=== PATIENT | male | born 1935 | race Caucasian/White ===

== ENCOUNTER → 2016-11-05 | Outpatient (CLI) | payer OTHER ==
[~2016-11-05] MED LIST: ASPI-435 PO; ATOR-22 PO; B-COTAB18 PO; BIMA0.01 OPL; CARB1TAB29 PO; CLOP1TAB15 PO; DOXY-300 PO; EPP3/2 IM; LISI-461 PO; MCTP EXT; METF-383 PO; MISC-573; MULTTAB58 PO; NTRGSL/4 UT; WOUN1PAD EXT
[2016-11-05 17:51] LABS: URINE APPEARANCE CLEAR (CLEAR); URINE BILIRUBIN NEG (NEG); URINE COLOR YELLOW; URINE NITRITE NEG (NEG); URINE SPECIFIC GRAVITY 1.015 (1.000-1.030); UROBILINOGEN NEG (NEG); ZZUR CULT IF INDIC CLEAN CATCH NO
[2016-11-05 17:58] LABS: MANUAL MICROSCOPIC REQUIRED? NO; REVIEW REQ? NO
== END | disposition home or self-care (01) ==
LOC: C.LABPBG 11:49
PROVIDERS: ATTEND Internal Medicine Geriatric Medicine
DX: R39.15 Urgency of urination (principal)

== ENCOUNTER → 2017-07-14 | Outpatient (CLI) | payer OTHER ==
[~2017-07-14] MED LIST changes: +CIPR-255 PO; +OXYC-57 PO; +PHEN-775 PO; +SACC250C11 PO
== END | disposition home or self-care (01) ==
LOC: C.PATHSPEC 10:17
PROVIDERS: ATTEND Urology
DX: R31.0 Gross hematuria (principal)

== ENCOUNTER → 2017-07-21 | Day surgery (SDC) | payer OTHER ==
[2017-07-19 09:37] VITALS: BMI 24.0
--- NOTE | 2017-07-19 10:21 | PAT Medication Instructions ---
Service Date Jul 19, 2017. Current Home Medication List Aspirin (Aspirin 81), 81 MG PO Q2D Atorvastatin (Lipitor), 20 MG PO HS B-Complex Vitamins (Vitamin B Complex), 1 TAB PO QAM Bimatoprost (Lumigan), 1 DROPS OPL HS Carbonyl Iron (Feosol), 1 TAB PO QAM Clopidogrel (Plavix), 75 MG PO QAM Epinephrine (Epipen), 0.3 MG IM UD PRN for BEE STING Lisinopril (Zestril), 10 MG PO QAM Metformin Hcl (Glucophage), 850 MG PO BID Multiple Vitamin (Multivitamin), 1 TAB PO QAM Nitroglycerin (Nitrostat), 0.4 MG UT PRN PRN for CHEST PAIN Saccharomyces Boulardii (Probiotic), 1 CAP PO QAM Medication Instructions For Your Scheduled Surgery - Check with surgeon and felling machine operator for instructions: Clopidogrel (Plavix), 75 MG PO QAM Aspirin (Aspirin 81), 81 MG PO Q2D - Hold the following medications 48 hours prior to surgery: Metformin Hcl (Glucophage), 850 MG PO BID - Hold the following medications the morning of surgery: B-Complex Vitamins (Vitamin B Complex), 1 TAB PO QAM Carbonyl Iron (Feosol), 1 TAB PO QAM Lisinopril (Zestril), 10 MG PO QAM Multiple Vitamin (Multivitamin), 1 TAB PO QAM Saccharomyces Boulardii (Probiotic), 1 CAP PO QAM - Take the following medications the morning of surgery with a sip of water: Nitroglycerin (Nitrostat), 0.4 MG UT PRN PRN for CHEST PAIN (if needed) Epinephrine (Epipen), 0.3 MG IM UD PRN for BEE STING (if needed) - Take the following medications as scheduled the night before surgery: Epinephrine (Epipen), 0.3 MG IM UD PRN for BEE STING (if needed) Nitroglycerin (Nitrostat), 0.4 MG UT PRN PRN for CHEST PAIN (if needed) Bimatoprost (Lumigan), 1 DROPS OPL HS Atorvastatin (Lipitor), 20 MG PO HS If you have any questions please call us at [phone] or [phone] or [phone]
[2017-07-19 11:01] LABS: BASO % 0.9 %; BASO ABS # 0.06 K/uL (0-0.2); COMPLETE YES; EOS % 4.3 %; HEMATOCRIT 34.2 % (42-52); IG% 0.3 %; LYMPH % 18.5 %; LYMPH ABS # 1.29 K/uL (1.2-3.4); MEAN CELL VOLUME 96.6 fL (80-100); MEAN CORPUSCULAR HEMOGLOBIN 32.8 pg (25-34); MEAN CORPUSCULAR HGB CONC 33.9 g/dl (32-36); MEAN PLATELET VOLUME 9.6 fL (7.4-10.4); MONO % 9.2 %; NEUT % 66.8 %; PLATELET COUNT 216 K/uL (130-400); RED BLOOD COUNT 3.54 M/uL (4.7-6.1); WHITE BLOOD COUNT 6.97 K/uL (4.8-10.8)
[2017-07-19 11:05] LABS: URINE APPEARANCE CLEAR (CLEAR); URINE BILIRUBIN NEG (NEG); URINE COLOR DK YELLOW; URINE NITRITE NEG (NEG); URINE PH 5.5 (4.5-7.5); URINE SPECIFIC GRAVITY 1.022 (1.000-1.030); UROBILINOGEN NEG (NEG)
[2017-07-19 11:07] LABS: MANUAL MICROSCOPIC REQUIRED? NO; REVIEW REQ? NO
[2017-07-19 11:12] LABS: BUN/CREATININE RATIO 20.5 (10-20); CALCIUM 8.8 mg/dl (8.5-10.1); CREATININE 0.87 mg/dl (0.60-1.40); POTASSIUM 4.8 mmol/L (3.5-5.1)
[~2017-07-21] VITALS: Ht 182.9 cm; Wt 80.5 kg
[~2017-07-21] MED LIST changes: +ATROPINE SULFATE 0.1 MG/ML 5ML SYR IV PRN; +CIPROFLOXACIN / D5W 400 MG IV SCH; +DEXAMETHASONE SOD INJ 4 MG/ML VIAL ONE; -DOXY-300 PO; +EpHEDrine SULFATE INJ 50 MG/ML AMP IV PRN; +FENTANYL CITRATE INJ 50 MCG/1 ML 2 ML VIAL IV PRN; +FENTANYL CITRATE INJ 50 MCG/1 ML 2 ML VIAL ONE; +LACTATED RINGER'S 1000ML 1,000 ML IV SCH; +LIDOCAINE HCL 2% 2 ML VIAL (20MG/ML) ONE; -MCTP EXT; -MISC-573; +ONDANSETRON INJ 2 MG/ML 2 ML VIAL IV PRN; +ONDANSETRON INJ 2 MG/ML 2 ML VIAL ONE; +OXYCODONE/ACETAMINOPHEN 5-325 TAB PO PRN; +PHENAZOPYRIDINE HCL 100 MG TAB PO PRN; +PROPOFOL IV EMULSION 10 MG/ML 20 ML VIAL IV ONE; -WOUN1PAD EXT
[2017-07-21 07:01] VITALS: BP 142/78; PULSE 58; TEMP 36.7; O2SAT 98; BMI 24.0
[2017-07-21 07:10] VITALS: BP 142/78; TEMP 36.7; O2SAT 98; Ht 182.9 cm; Wt 80.5 kg
--- NOTE | 2017-07-21 07:10 | History & Physical Bridge Note ---
H&P Re-Evaluation Bridge Note: I have examined the patient, reviewed the History & Physical and in the interval since the performance of the History & Physical I have noted the following changes of clinical significance: No changes noted
--- NOTE | 2017-07-21 08:19 | Discharge Instructions ---
Discharge Instructions Date of Service Jul 21, 2017. 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 Instructions / Follow-Up Instructions / Follow-Up In office as scheduled for discussion of pathology results Discharge Diet Recommended Diet: Regular Diet (good fluid intake) Procedures Procedures Performed: Cystoscopy, cold cup bladder biopsy, rollerball fulguration, clot evacuation Pending Studies Studies pending at discharge: yes List of pending studies: Pathology discussion Medical Emergencies . Who to Call and When: Medical Emergencies: If at any time you feel your situation is an emergency, please call 911 immediately. . Non-Emergent Contact Non-Emergency issues call your: Urologist Call Non-Emergent contact if: you have a fever, temperature is above 101, your pain is not controlled, your pain is worsening, your pain is unusual for you, your pain is concerning you . . "Provider Documentation" section prepared by [facility]. . VTE Core Measure Inpt VTE Proph given/why not?: SCD's [place] Drug Monitoring Program Search Results: patient reviewed within database, no issues identified
--- NOTE | 2017-07-21 09:10 | [facility] Post Operative Brief Note ---
Immediate Operative Summary Operative Date Jul 21, 2017. Pre-Operative Diagnosis Gross Hematuria, abnormal cystoscopy Post-Operative Diagnosis Same Procedure(s) Performed Cystoscopy, cold cup bladder biopsy, rollerball fulguration, clot evacuation Surgeon Dr. 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 Posterior Bladder Biopsy B. Left Bladder Biopsy C. Right Bladder Biopsy D. Right Bladder Diverticulum Drains 18 fr eagle 10 cc H2O Anesthesia GALMA Complication(s) None Disposition Recovery Room / PACU
--- NOTE | 2017-07-21 09:16 | [facility] Operative Report ---
Operative Report Operative Date Jul 21, 2017. Pre-Operative Diagnosis Gross Hematuria, abnormal cystoscopy Post-Operative Diagnosis Same Procedure(s) Performed Cystoscopy, cold cup bladder biopsy, rollerball fulguration, clot evacuation Surgeon Dr. 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 Posterior Bladder Biopsy B. Left Bladder Biopsy C. Right Bladder Biopsy D. Right Bladder Diverticulum Drains 18 fr eagle 10 cc H2O Anesthesia GALMA Complication(s) None Disposition Recovery Room / PACU Indications 82-year-old male with a history of persistent gross hematuria was found to have borderline areas of bladder mucosa on office cystoscopy by Dr. Piedra. In addition he is noted to have a right-sided bladder diverticulum in a position lateral to the ureteral orifice with retained clot. Patient is here today for biopsy, fulguration and clot evacuation. Please see office H&P for further details. Intravenous antibiotics provided for coverage and SCDs used for DVT prophylaxis. Description of Procedure Patient was properly identified and brought into the operative suite after identification for appropriate consent of the chart. General anesthesia with laryngeal mask was initiated and patient was prepped and draped in the standard fashion for this procedure. Full timeout procedure was followed. 22 Slovak rigid cystoscope was passed into the bladder, bladder was surveyed in its entirety including 30 and 70 lenses. This redemonstrated the patient's previous office findings of borderline, beefy mucosa on the posterior bladder wall and a larger right-sided diverticulum with retained clot. Some small amount of clot within the bladder was irrigated free. Other, smaller bladder diverticula were noted without significant abnormalities. A moderately obstructive prostate gland was appreciated with no strictures or clear papillary masses. Narrowband imaging was used to assist with identification of borderline areas of mucosa. Cold cup biopsies were taken and sent separately from different areas including the posterior bladder wall, left and right lateral wall in random locations and the bladder diverticulum. Cystoscope was then removed and a 27 Slovak resectoscope was introduced using a visual obturator. Rollerball cautery was used to ablate areas of abnormal appearing mucosa and to obtain excellent hemostasis. All clots present within the bladder and diverticulum were irrigated free through the resectoscope sheath. After this was complete the patient's bladder was noted to be free of retained clot with no significant abnormal mucosa present and excellent hemostasis. Bladder was drained and resectoscope was removed. 18 Slovak Eagle catheter was placed with 10 mL of sterile water in the balloon to gravity drainage. Follow-up care: Patient will be discharged home after a trial of void today. Prescription for antibiotic coverage, pain medication and Pyridium was provided. Outpatient follow-up appointment is confirmed. Patient was instructed to call our service should he note any fevers, chills, nausea, vomiting or other difficulties in the postoperative period. I attest to the content of the Intraoperative Record and any orders documented therein. Any exceptions are noted below.
--- NOTE | 2017-07-21 09:44 | Anesthesiology Progress Note ---
Anesthesia Post Op Note Date & Time Jul 21, 2017 at 09:43 Vital Signs Pain Intensity: 0 Vital Signs Past 12 Hours Date Time Temp Pulse Resp B/P (MAP) Pulse Ox O2 Delivery O2 Flow Rate FiO2 07/21/17 09:40 36.3 56 12 124/69 97 Room Air 07/21/17 09:30 58 17 128/74 97 Room Air 07/21/17 09:20 57 15 126/69 100 Mask 10 07/21/17 09:10 58 19 129/72 100 Mask 10 07/21/17 09:04 36.5 60 16 125/69 100 Mask 10 07/21/17 07:10 36.7 16 142/78 (99) 98 Room Air 07/21/17 07:01 36.7 58 16 142/78 (99) 98 Room Air Notes Mental Status: alert / awake / arousable, participated in evaluation Pt Amnestic to Procedure: Yes Nausea / Vomiting: adequately controlled Pain: adequately controlled Airway Patency, RR, SpO2: stable & adequate BP & HR: stable & adequate Hydration State: stable & adequate Anesthetic Complications: no major complications apparent
[2017-07-21 10:00] VITALS: BP 138/74; PULSE 61; TEMP 36.5; O2SAT 98
[2017-07-21 10:31] VITALS: BP 137/78; PULSE 60; O2SAT 99
[2017-07-21 11:00] VITALS: BP 151/76; PULSE 57; TEMP 36.5; O2SAT 99
== END | disposition home or self-care (01) ==
LOC: C.ACU 06:21
PROVIDERS: ATTEND Urology
DX: N30.21 Other chronic cystitis with hematuria (principal); I25.10 Atherosclerotic heart disease of native coronary artery without angina pectoris; N40.0 Benign prostatic hyperplasia without lower urinary tract symptoms; G47.31 Primary central sleep apnea; E78.5 Hyperlipidemia, unspecified; I10 Essential (primary) hypertension; M19.90 Unspecified osteoarthritis, unspecified site; E11.9 Type 2 diabetes mellitus without complications

== ENCOUNTER → 2017-08-01 | Outpatient (CLI) | payer OTHER ==
[~2017-08-01] MED LIST changes: -ATROPINE SULFATE 0.1 MG/ML 5ML SYR IV PRN; -CIPROFLOXACIN / D5W 400 MG IV SCH; -DEXAMETHASONE SOD INJ 4 MG/ML VIAL ONE; -EpHEDrine SULFATE INJ 50 MG/ML AMP IV PRN; -FENTANYL CITRATE INJ 50 MCG/1 ML 2 ML VIAL IV PRN; -FENTANYL CITRATE INJ 50 MCG/1 ML 2 ML VIAL ONE; -LACTATED RINGER'S 1000ML 1,000 ML IV SCH; -LIDOCAINE HCL 2% 2 ML VIAL (20MG/ML) ONE; -ONDANSETRON INJ 2 MG/ML 2 ML VIAL IV PRN; -ONDANSETRON INJ 2 MG/ML 2 ML VIAL ONE; -OXYCODONE/ACETAMINOPHEN 5-325 TAB PO PRN; -PHENAZOPYRIDINE HCL 100 MG TAB PO PRN; -PROPOFOL IV EMULSION 10 MG/ML 20 ML VIAL IV ONE
== END | disposition home or self-care (01) ==
LOC: C.LABSPEC 18:01
PROVIDERS: ATTEND Urology
DX: R39.15 Urgency of urination (principal); N39.0 Urinary tract infection, site not specified

== ENCOUNTER → 2017-10-26 | Outpatient (CLI) | payer OTHER ==
[~2017-10-26] MED LIST changes: -PHEN-775 PO
--- NOTE | 2017-10-27 06:20 | PAP/PSG TECHNICIAN REPORT ---
[facility] Grapple Operator Polysomnogram Report Study name: None Report date: 10/27/2017 Study date: 10/26/2017 Referring Physician: BRYN GALLAGHER M.D. Name: JESSE CREWS Interpreting Physician: Martinez Escobar M.D. Date of : 1935 Grapple Operator: Dov Mcgill RPSGT. Sex: Male Age: 82 StudyType: PSG PAP Weight: 182 lbs Height: 82 years, Height 5' 11" BMI: 25.38 Medications: ASPIRIN 81 MG, EPIPEN, CLOPIDOGREL BISULFATE 75 MG, ATORVASTATIN CALCIUM 20 MG, LISINOPRIL 10 MG, METFORMIN HCL 850 MG, IRON, ONETOUCH ULTRA, MYRBETRIQ 50 MG, NITROSTAT 0.4 MG, VIT B Patient History PATIENT HAS HISTORY OF HYPERTENSION, DIABETES, CORONARY ARTERY DISEASE AND COMPLEX SLEEP APNEA. PATIENT HAD A SLEEP STUDY DONE IN 2011 THAT SHOWED HE NEEDED BIPAP AT 13/6. HIS LAST SLEEP STUDY WAS DONE IN APRIL OF 2015 AND HE WAS SENT INTO THE LAB FOR A CPAP TITRATION AND WAS RECOMMENDED BIPAP OF 16/12 WITH A RATE OF 12. HE CURRENTLY WEARS BIPAP BUT HAS BEEN FEELING TIRED THE PAST 6 MONTHS. HE IS HERE TODAY FOR A CPAP TITRATION PER DOCTORS ORDER. RM 8 Parameters Monitored NPSG: E1-M2, E2-M1, Fp1-M2, Fp2-M1, F3-M2, F4-M2, F4-M1, C3-M2, C4-M2, C4-M1, O1-M2, O2-M2, O2-M1, T3-M2, T4-M1, P3-M2, P4-M1, CHIN1, CHIN2, HR, EKG, Legs, PFLOW, SNOR, FLOW, CFLOW, Tidal Volume, THOR, ABDO, SpO2, PLTH, CPRESS, ETCO2 Wave, ETCO2, pH Sleep Architecture Sleep Stages Time at Lights Off 11:17:49 PM STAGES Time (min.) TST (%) Time at Lights On 5:39:19 AM Wake 111.0 -- Total Recording Time (TRT) 382.00 min. N1 34.5 13 Total Sleep Period (TSP) 376.5 min. N2 210.0 78 Total Sleep Time (TST) 270.5min. N3 4.5 2 Awake Time 111.0 min. REM 21.5 8 Wake after Sleep Onset 106.0 min. Sleep Efficiency (SE) 71 % Sleep Onset Latency (SHARON) 5.0 min. Number of Stage 1 Shifts None Awakenings 55 Stage Changes 168 Number of REM periods 1 REM 21.5 8 REM Latency 323.0 min. NREM 249.0 92 Body Position Analysis Supine Right Left Side Prone Vertical Total Sleep Time (min.) 287.4 92.0 0.0 92.00 0.0 0.0 Total Sleep Time (%) 66% 34% 0% 34 0% N/A% Total Sleep Time REM (min.) 0.0 21.5 0.0 None 0.0 0.0 Total Sleep Time NREM (min.) 178.5 70.5 0.0 None 0.0 0.0 Intermittent Wake (min.) 108.9 2.1 0.0 None 0.0 0.0 Total Sleep Period (%) 75% None None None None None Arousals Myoclonus (PLM) * Events Count Index Events Count Index Spontaneous 37 8 Events Awake (PLMW) 161 87.0 Respiratory 30 8.7 Events Asleep w/ Arousal (PLMA) 19 4.2 PLM 18 4 Events Asleep w/o Arousal (PLMS) 573 127.1 Snoring 4 1 Total Asleep 592 131.3 Total 88 20 Total 753 118 Respiratory Analysis * CA OA MA CH H RERA Total Count 24 12 22 0 5 1 63 Index 5.3 2.7 4.9 0 1.1 0 14.2 Mean Duration 34.5 37.9 52.1 0.00 38.9 13.5 41.2 Longest Duration 76.0 54.5 86.5 0.00 86.5 13.5 86.5 Respiratory Event Summary Total Supine ~Supine Right Left Prone REM NREM Apneas Count 58 58 0 0 N/A N/A 0 58 Index 12.9 19 0 0.0 N/A N/A 0 14 Hypopneas (4% Desat) Count 5 5 0 0 N/A N/A 0 5 Index 1.1 1.7 0 0.0 N/A N/A 0.0 1.2 Apneas & All Hypopneas Count 63 63 0 0 N/A N/A 0 63 Index 14.0 21 0 0 N/A N/A 0.0 15.2 Respiratory Events (Junior Analyst+All Hyp+RERA) Count 63 64 0 0 N/A N/A 0 63 Index 14.2 22 0 0.0 N/A N/A 0.0 15.4 Respiratory Related Arousal Count 30 64 0 0 N/A N/A 0 39 Index 8.7 13 0 0 N/A N/A 0 9 Snoring Analysis Supine Right Left Prone REM NREM Total Snore duration 2.1 min Snores count 45 1 N/A N/A 0 46 46 Snore mean duration 2.7 Sec Snores index 15 1 N/A N/A 0.0 11.1 10.2 TST with snoring (%) 0.8% Desaturation Event Summary: Minimum %SpO2 Event Count Mean/Min/Max Duration(sec.) Desaturation Index % Time In Bed > 90 43 50.0 / 29.5 / 95.4 7.1 96.5 86 - 90 0 N/A 0.0 3.1 81 - 85 0 N/A 0.0 0.4 76 - 80 0 N/A 0.0 0.1 71 - 75 0 N/A 0.0 0.0 66 - 70 0 N/A 0.0 0.0 61 - 65 0 N/A 0.0 0.0 56 - 60 0 N/A 0.0 0.0 51 - 55 0 N/A 0.0 0.0 < 50 0 N/A 0.0 0.0 Total REM NREM Awake <50% 0.0 min. 0.0 min. 0.0 min. 0.0 min. 51 - 60% 0.0 min. 0.0 min. 0.0 min. 0.0 min. 61 - 70% 0.0 min. 0.0 min. 0.0 min. 0.0 min. 71 - 80% 0.2 min. 0.0 min. 0.0 min. 0.2 min. 81 - 90% 13.1 min. 0.0 min. 7.2 min. 5.9 min. 91 - 100% 365.8 min. 21.5 min. 241.8 min. 102.5 min. Average 96 96 95 96 Minimum SpO2 78 94 78 78 Desaturation Event Index 6.8 0.0 10.4 0.5 # Desat. Events below 89% 16 N/A 16 0 Time(%) with Saturation below 89% 1.7 0.0 0.8 0.9 Time(min.) with Saturation below 89% 6.6 0.0 3.2 3.4 Time (mins) REM (mins) NREM (mins) % of TST SpO2 Below 90% 21 N/A N21 1.9 SpO2 Below 88% 11 0 0 1 Heart Rate Analysis Min (bpm) Max (bpm) Average (bpm) Awake 58 127 63 NREM 58 71 63 REM 59 70 64 Overall 58 71 63 Supplemental O2 Values Minimum O2 level: None Value Start Time End Time Grapple Operator Comments Mr. Crews slept in the right and supine positions. No cardiac arrhythmia noted. Leg movements noted. No bruxism noted. CPAP was initiated at +5 CMH2O and was switched to BIPAP at 9/5 due to central apneas. BIPAP was increased to 10/6 and a rate of 12 was added. BIPAP was increased to 17/13 when a rate of 14 was added due to mixed and central apneas. BIPAP was increased to 18/14 with a rate of 14, which nearly eliminated all respiratory events and snoring. A William and [employer]Pledge size large Simplus mask was used during titration Mr. Crews awoke to use the restroom 1 time during the night. Mr. Crews stated I slept as well as I do when I am in my own bed. Patient brought in his own mask for the sleep study, however before the study started I had him try his mask on and saw that it recorded a very high mask leak. This mask was different compared to what he used during his last sleep study, which was relatively successful. The final report will be interpreted and signed by a sleep physician. The completed physician report will then be placed in the patient medical record. Therapy Event: Therapy (cm H20) 5 9/5 10/6 12/8 13 14 1524/09 18 Total Time at Pressure (min.) 22.6 20.6 39.8 9.6 8.5 9.1 10.6 152.9 9.7 98.1 TST at Pressure (min.) 9.1 8.1 18.3 8.6 8.0 8.1 10.1 97.9 9.2 93.1 # Periods 1 1 1 1 1 1 1 1 1 1 Sleep Onset (min.) 5.0 0.0 0.0 0.0 0.0 0.0 0.0 0.0 0.0 0.0 REM Onset (min.) N/A N/A N/A N/A N/A N/A N/A N/A N/A 44.6 Sleep Efficiency % 40 39 46 89 94 89 95 64 94 94 Wakefulness (%) 59.7 60.6 54.0 10.5 5.9 11.0 4.7 36.0 5.1 5.1 Wakefulness (min.) 13.5 12.5 21.5 1.0 0.5 1.0 0.5 55.0 0.5 5.0 NREM 1 (%) 15.5 18.2 8.2 5.2 5.9 11.0 9.4 8.3 33.9 5.1 NREM 1 (min.) 3.5 3.7 3.3 0.5 0.5 1.0 1.0 12.7 3.3 5.0 NREM 2 (%) 24.9 21.2 37.8 84.3 88.2 77.9 85.9 52.8 61.0 67.9 NREM 2 (min.) 5.6 4.4 15.1 8.1 7.5 7.1 9.1 80.7 5.9 66.6 NREM 3 (%) 0.0 0.0 0.0 0.0 0.0 0.0 0.0 2.9 0.0 0.0 NREM 3 (min.) 0.0 0.0 0.0 0.0 0.0 0.0 0.0 4.5 0.0 0.0 REM (%) 0.0 0.0 0.0 0.0 0.0 0.0 0.0 0.0 0.0 21.9 REM (min.) 0.0 0.0 0.0 0.0 0.0 0.0 0.0 0.0 0.0 21.5 # Arousals 8 3 12 5 5 7 3 29 5 11 Arousal Index 52.6 22.2 39.3 35.1 37.5 52.1 17.8 17.8 32.6 7.1 # Snore 2 2 1 3 7 3 1 25 1 1 Snore Index 13.2 14.8 3.3 21.0 52.5 22.3 5.9 15.3 6.5 0.6 AHI 59.2 36.9 49.1 49.1 45.0 52.1 5.9 4.9 26.1 0.6 AHI Supine 59.2 36.9 49.1 49.1 45.0 52.1 5.9 4.9 26.1 55.6 AHI Non-Supine N/A N/A N/A N/A N/A N/A N/A N/A N/A 0.0 NREM AHI 59.2 36.9 49.1 49.1 45.0 52.1 5.9 4.9 26.1 0.8 REM AHI N/A N/A N/A N/A N/A N/A N/A N/A N/A 0.0 RDI 59.2 44.3 49.1 49.1 45.0 52.1 5.9 4.9 26.1 0.6 # Obstructive 0 0 1 2 3 2 1 0 3 0 # Central Ap 9 4 7 0 0 1 0 3 0 0 # Mixed 0 1 7 5 1 4 0 4 0 0 # Hypopneas 0 0 0 0 2 0 0 1 1 1 RERAS 0 1 0 0 0 0 0 0 0 0 Total Respiratory Events 9 6 15 7 6 7 1 8 4 1 Time Below SpO2 89.00% (min.) 0.0 0.1 2.0 0.6 0.5 0.0 0.0 0.0 0.0 0.0 Mean NREM SpO2 (%) 97 96 94 93 93 95 95 96 94 95 Mean REM SpO2 (%) N/A N/A N/A N/A N/A N/A N/A N/A N/A 96 Mean Sleep SpO2 (%) 97 96 94 93 93 95 95 96 94 96 Min NREM SpO2 (%) 89 87 78 86 87 91 93 89 91 92 Min REM SpO2 (%) N/A N/A N/A N/A N/A N/A N/A N/A N/A 94 Position Supine (min.) 9.1 8.1 18.3 8.6 8.0 8.1 10.1 97.9 9.2 1.1 Position Non-supine (min.) 0.0 0.0 0.0 0.0 0.0 0.0 0.0 0.0 0.0 92.0 LM Index Sleep 19.7 29.5 157.2 203.4 210.0 200.8 183.7 160.0 13.0 102.5 LM Index NREM 19.7 29.5 157.2 203.4 210.0 200.8 183.7 160.0 13.0 109.0 LM Index REM N/A N/A N/A N/A N/A N/A N/A N/A N/A 80.9 Mean Heart Rate (bpm) 60 62 62 62 63 63 64 64 62 63 Min Heart Rate (bpm) 58 58 59 59 60 61 61 58 60 59
--- NOTE | 2017-10-28 14:20 | POLYSOMNOGRAPH REPORT ---
CLINICAL DATA: An 82-year-old male with BMI of 35.[address] Tristan Meléndez with complex sleep apnea. He had a PSG done in 2011 which showed that he needed BIPAP 13/6. His last sleep study in April 2015 showed that he needed BIPAP with a pressure of 16/12, with a rate of 12. He has been feeling tired over the past 6 months. SLEEP ARCHITECTURE: Total sleep period was 376.5 minutes. Total sleep time was 270.5 minutes divided between 249 minutes of non-REM sleep and 21.5 minutes of REM sleep. Sleep onset latency was 5 minutes. REM latency was 323 minutes. Sleep efficiency was 71%. Wake after sleep onset was elevated at 106 minutes. Sleep consisted of stage N1 13%, stage N2 78%, stage N3 2%, and REM 8%. AROUSAL DATA: Eighty-eight arousals were recorded for an index of 20 per hour. Thirty were due to respiratory events. PLM DATA: Severe PLMD was noted. There were 592 limb movements during sleep noted for 131.3 per hour with arousal index of 4.2 per hour. RESPIRATORY DATA: The AHI was 14. There were 24 central, 12 obstructive, and 22 mixed apneic episodes. The longest duration of apnea was 76 seconds. There were 5 hypopneic episodes. The longest hypopneic episode was 86.5 seconds. OXIMETRY DATA: Nocturnal hypoxemia was seen. Oxygen angel was 78% during non-REM sleep. The mean saturation was 96%. Time below 88% was 11 minutes. EKG: Heart rates ranged from 58-71 beats per minute. No arrhythmias were noted. GREEN PRIZE PACKER'S COMMENTS: The patient slept in the right and supine position. He brought his own facemask but had an excessive leak rate so he was switched to a William and Paykel size large Simplus mask. He was started on CPAP but developed treatment onset central apneic episodes and was switched to BiPAP. His BiPAP was started at 9/5 and was titrated incrementally up to 18/14 with a backup rate of 14 breaths per minute. At his final pressure setting, he slept for 93 minutes with an AHI of 0.6. IMPRESSION: Severe complex sleep apnea corrected with BiPAP 18/14, backup rate of 14 using a William and Paykel large Simplus mask. RECOMMENDATIONS: The patient should be changed to BIPAP 18/14 with a backup rate of 14 using a William and Paykel large Simplus mask. He should be seen back in followup within 90 days to document efficacy and compliance. If he continues to have issues, evaluation and treatment for PLMD may be needed. If his BiPAP does not appear to be effective, then titration with adaptive servo-ventilation (ASV) may be needed. Sleep medicine consultation may be of benefit. Clinical correlation is needed. MTDD
== END | disposition home or self-care (01) ==
LOC: C.NEUR 21:00
PROVIDERS: ATTEND Internal Medicine Geriatric Medicine
DX: G47.33 Obstructive sleep apnea (adult) (pediatric) (principal)

== ENCOUNTER → 2018-02-08 | Day surgery (SDC) | payer OTHER ==
[~2018-02-08] VITALS: Ht 182.9 cm; Wt 84.0 kg
[~2018-02-08] MED LIST changes: +FENTANYL CITRATE INJ 50 MCG/1 ML 2 ML VIAL ONE; +FESO4TAB PO; +HEPARIN SOD (PORCINE) 1000 UNIT/ML 10 ML VIAL ONE; +ISOS60TA2 PO; +MIDAZOLAM HCL 1 MG/ML 2ML VIAL ONE; +MIRA1TAB3 PO; +NITROGLYCERIN/D5W 100MCG/ML 20ML SYR ONE; +NiCARDipine HCL INJ 2.5 MG/ML 10 ML AMP ONE; -OXYC-57 PO
[2018-02-08 08:26] VITALS: BP 167/81; PULSE 62; TEMP 36.8; O2SAT 95; Ht 182.9 cm; Wt 84.0 kg
--- NOTE | 2018-02-08 09:44 | Pre Sedation Assessment ---
Pre Sedation Assessment General Date of Sedation: February 08, 2018. Vital Signs Past 12 Hours Date Time Temp Pulse Resp B/P (MAP) Pulse Ox O2 Delivery O2 Flow Rate FiO2 02/08/18 08:26 36.8 62 18 167/81 (109) 95 Room Air Review Cardiovascular: regular rate, rhythm, no edema Lungs: chest non-tender, lungs clear Pre-Sedation Airway Assessment Smoking Status: Never Smoker Hx of Sleep Apnea: No Hx of difficult intubation: No Short Thick Neck: No Thyro-mental Distance: > 3 Finger Breadths Oral Cavity: Dentures Mallampati Classification: Class III ASA Classification: Class II NPO Status Date of Last Intake of Fluids: February 07, 2018 Date of Last Intake of Solids: February 07, 2018 Procedure Planning Contraindications for Sedation: None Current Medications Reviewed: Yes Notes The planned sedation has been discussed with the patient. Informed Consent was obtained. I have identified the patient, determined the appropriateness of sedation and have assessed the patient immediately prior to the procedure. All medicine(s) and interventions are by my order.
--- NOTE | 2018-02-08 10:53 | Post Sedation Assessment ---
Post Sedation Assessment General Date of Sedation February 08, 2018. Vital Signs: Vital Signs Past 12 Hours Date Time Temp Pulse Resp B/P (MAP) Pulse Ox O2 Delivery O2 Flow Rate FiO2 /18 08:26 36.8 62 18 167/81 (109) 95 Room Air Post Procedure Recovery Score Activity: (2) Moves 4 extremities * Respiration: (2) Deep breath/cough Circulation: (2) +/-20% PreAnes Value Consciousness: (2) Fully Awake Oxygen Saturation: (2) > 92% On Room Air Post Anesthesia Score: 10 Discharge Sedation Level of Care: Fast Track Phase II Post Sedation Plan On clinical assessment, the patient appears to have tolerated the sedation without complications. Patient is recovering as anticipated. Patient will continue to be monitored by nursing and may be discharged when sedation discharge criteria are met per below protocol. Upon Completions of procedure and additional 15 minutes continue every 5 minute vital signs and the P.A.R. score; then discharge to a Phase I or Fast Track to Phase II per the following guidelines: * Discharge Patient to appropriate Phase II area if PAR is 8 or greater or return to pre- procedure baseline. The post - procedure orders will be as directed. * If PAR score is less than 8 or not return to pre-procedure baseline then patient will follow Phase I monitoring till PAR is reached for Phase II. The Phase I may be done in procedure room or may call to secure a Phase I area. * If naloxone or flumazenil are used for reversal, hold in Phase I for an additional 60 -120 minutes before discharge to Phase II. Please call the Sedation Physician to re-evaluate and complete post-note for discharge to Phase II area. Do NOT discharge from procedure sedation or Phase 1 until post- sedation evaluation note is complete by procedure /sedation MD Sedation Discharge Instructions to be given to the patient at discharge to home.
--- NOTE | 2018-02-08 11:16 | Cardiac Catheterization ---
Procedure Note Procedure Date February 08, 2018. Pre-Procedure Diagnosis Angina, Positive Stress Test AUC Score 7 Post-Procedure Diagnosis Severe CAD, Normal Intracardiac Pressures Procedure(s) Performed Coronary Angiography, Left Heart Cath Magazine Repairer Abhay [employer] Technician(s) Glunt Estimated Blood Loss 15 Medication(s) Fentanyl, Heparin, Nitroglycerin, Versed, Lidocaine 1% Summary of Findings Indication: Angina; Positive high-risk stress test Access: 6Fr right radial artery Catheters: Clements; JL3.5 Findings: LM - Calcified, 90% distal disease extending into LAD/circumflex LAD - Heavily calcified, 90% ostial stenosis, diffuse 40-50% mid segment disease ; 80-90% after take-off large 2nd diagonal; Small distal LAD with luminal irregularities. 2nd diagonal with luminal irregularities. Circumflex - 99% ostial stenosis, patent mid segment stent; YANA 1 flow distal RCA - Large caliber dominant vessel; 40-50% ostial PAV/PLB disease. LVEDP - 5 Arterial Closure: TR Band Summary: 1. Severe multivessel coronary artery disease - 90% left main - 90% ostial LAD; 80-90% mid stenosis after take-off of large 2nd diagonal - 99% ostial circumflex with distal TIMI1 flow 2. [] intracardiac filling pressure Recommendations: In the setting of high risk left main bifurcation disease and subtotal occlusive disease in circumflex with YANA 1 flow at rest feel patient should be transferred for urgent evaluation for bypass surgery. Discussed with [facility] cardiology who agreed to accept patient. 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
[2018-02-08 11:55] VITALS: BP 170/78; PULSE 58; O2SAT 95
== END | disposition home or self-care (01) ==
LOC: C.CATH 08:14
PROVIDERS: ATTEND Internal Medicine Interventional Cardiology
DX: I25.10 Atherosclerotic heart disease of native coronary artery without angina pectoris (principal); I73.9 Peripheral vascular disease, unspecified; I10 Essential (primary) hypertension; E11.51 Type 2 diabetes mellitus with diabetic peripheral angiopathy without gangrene; I34.0 Nonrheumatic mitral (valve) insufficiency; Z95.5 Presence of coronary angioplasty implant and graft; E78.5 Hyperlipidemia, unspecified; N40.0 Benign prostatic hyperplasia without lower urinary tract symptoms; I65.29 Occlusion and stenosis of unspecified carotid artery; G47.33 Obstructive sleep apnea (adult) (pediatric); M19.90 Unspecified osteoarthritis, unspecified site; Z87.891 Personal history of nicotine dependence; Z82.49 Family history of ischemic heart disease and other diseases of the circulatory system; Z82.3 Family history of stroke; Z83.6 Family history of other diseases of the respiratory system; Z79.82 Long term (current) use of aspirin; Z79.899 Other long term (current) drug therapy; Z79.84 Long term (current) use of oral hypoglycemic drugs

== ENCOUNTER 2018-02-17 11:13 | Emergency (ER) | payer OTHER ==
[~2018-02-17] VITALS: Ht 180.3 cm; Wt 81.0 kg
[~2018-02-17 11:13] MED LIST changes: -FENTANYL CITRATE INJ 50 MCG/1 ML 2 ML VIAL ONE; -HEPARIN SOD (PORCINE) 1000 UNIT/ML 10 ML VIAL ONE; -MIDAZOLAM HCL 1 MG/ML 2ML VIAL ONE; -NITROGLYCERIN/D5W 100MCG/ML 20ML SYR ONE; -NiCARDipine HCL INJ 2.5 MG/ML 10 ML AMP ONE
[2018-02-17 11:19] VITALS: TEMP 37.3; O2SAT 95; Ht 180.3 cm; Wt 81.0 kg
[2018-02-17] MEDS ORDERED: METO25TA56 PO (12:27)
[2018-02-17] MEDS ORDERED: METF-383 PO (12:27)
[2018-02-17] MEDS ORDERED: FRS/40 PO (12:27)
[2018-02-17] MEDS ORDERED: FERR1TAB62 PO (12:27)
[2018-02-17] MEDS ORDERED: FAMO20TA11 PO (12:27)
[2018-02-17] MEDS ORDERED: ATOR-24 PO (12:27)
[2018-02-17] MEDS ORDERED: TICA1TAB PO (12:27)
[2018-02-17] MEDS ORDERED: POTA10CA28 PO (12:27)
[2018-02-17] MEDS ORDERED: OXYC1TAB3 PO (12:27)
[2018-02-17] MEDS ORDERED: ASPIRIN 81 MG CHEW PO STA (12:28)
[2018-02-17 12:35] LABS: CALCIUM 8.5 mg/dl (8.5-10.1); CREATININE 1.26 mg/dl (0.60-1.40); POTASSIUM 4.2 mmol/L (3.5-5.1)
[2018-02-17 12:40] LABS: CKMB 2.1 ng/ml (0.5-3.6)
[2018-02-17] MEDS ORDERED: OPTIRAY 320 IV PRN (12:45)
--- NOTE | 2018-02-17 12:47 | DIAGNOSTIC IMAGING REPORT ---
CHEST ONE VIEW PORTABLE CLINICAL HISTORY: 82 years-old Male presenting with Chest Pain. TECHNIQUE: Portable upright AP view of the chest was obtained. COMPARISON: 08/13/2016. FINDINGS: Median sternotomy wires and mediastinal surgical clips noted. Atherosclerosis of aortic arch. Cardiac silhouette top normal in size. Left retrocardiac and basilar opacity. Small left pleural effusion suspected. Right lung and pleural space clear. Degenerative changes of the thoracic spine. IMPRESSION: 1. Left basilar consolidation and left pleural effusion. Infection is difficult to exclude. Alternatively, this may represent extensive atelectasis secondary to pleural fluid. Electronically signed by: Gary Harden M.D. 02/17/2018 12:45 PM Dictated Date/Time: 02/17/2018 12:44 PM
--- NOTE | 2018-02-17 13:09 | DIAGNOSTIC IMAGING REPORT ---
(CHEST FOR PE) ANGIO WITH CT DOSE: 406.81 mGy.cm HISTORY: 82 years-old Male presents with acute atypical chest pain and shortness of breath TECHNIQUE: Multiple CTA images of the chest were obtained after the intravenous administration of 93 ml Optiray 320. Coronal and sagittal MIPS were obtained from the axial data set and were submitted for review. A dose lowering technique was utilized adhering to the principles of ALARA. COMPARISON: Chest radiograph of same day, CT abdomen and pelvis 11/28/2015. FINDINGS: Motion degraded exam. CTA: Moderate multichamber cardiac enlargement with small pericardial effusion. Coronary arterial calcifications are noted. Prior median sternotomy with CABG. Moderate mixed plaquing of the thoracic aorta without aneurysm or dissection. The imaged great vessels appear to be patent. The pulmonary arterial tree is opacified to the level of the subsegmental branches. The distal segmental and subsegmental branches however are suboptimally visualized secondary to respiratory motion. No focal filling defects identified to suggest pulmonary thromboembolic disease. CT CHEST: Small collection of fluid and air is noted within the subcutaneous tissues superior to the sternum at the midline, 1.4 x 0.9 cm on image 237 series 4. Additionally, there is mild subcutaneous stranding at the sternotomy site both superficial and deep to the sternum with ill-defined edema within the epicardial tissues. Additionally, scattered foci of air noted within the left epicardial fat pad as seen on image 72 series 4 and also directly posterior to the sternum on image 145 series 4. No dominant thyroid nodule or pathologic adenopathy identified. Trace right and moderate left pleural effusions without pneumothorax. Subsegmental dependent consolidative opacities are noted within the bilateral lower lobes, left greater than right. The central airways appear patent. There is no acute process of the imaged upper abdomen. The bones appear mildly demineralized. Multilevel degenerative changes about the thoracic spine. IMPRESSION: 1. Motion degraded exam without acute aortic pathology or evidence of pulmonary thromboembolic disease. 2. Prior median sternotomy with CABG. Soft tissue stranding both superficial and deep to the sternum with scattered foci of air and edema within the epicardial fat pad as above suggests expected postsurgical findings. Superimposed infectious etiology with mediastinitis is an additional differential consideration. Small focus of fluid and air within the superficial subcutaneous tissues at the midline superior to the sternum measuring up to 1.4 cm suggests postsurgical changes with a small developing abscess also considered. 3. Trace right and moderate left pleural effusions with left greater than right dependent consolidation within the lower lobes suggesting compressive atelectasis. The above report was generated using voice recognition software. It may contain grammatical, syntax or spelling errors. Electronically signed by: Meir Jacinto M.D. 02/17/2018 1:08 PM Dictated Date/Time: 02/17/2018 12:57 PM
[2018-02-17 13:21] LABS: BASO % 0.2 %; BASO ABS # 0.02 K/uL (0-0.2); EOS % 1.3 %; EOS ABS # 0.15 K/uL (0-0.5); HEMOGLOBIN 10.1 g/dL (14.0-18.0); IG# 0.06 K/uL (0.00-0.02); LYMPH ABS # 0.92 K/uL (1.2-3.4); MEAN CELL VOLUME 94.6 fL (80-100); MEAN CORPUSCULAR HEMOGLOBIN 31.9 pg (25-34); MEAN CORPUSCULAR HGB CONC 33.7 g/dl (32-36); MONO ABS # 1.15 K/uL (0.11-0.59); NEUT ABS # 9.15 K/uL (1.4-6.5); PLATELET COUNT 315 K/uL (130-400); RED CELL DISTRIBUTION WIDTH CV 15.9 % (11.5-14.5); RED CELL DISTRIBUTION WIDTH SD 53.5 fL (36.4-46.3); WHITE BLOOD COUNT 11.45 K/uL (4.8-10.8)
[2018-02-17] MEDS ORDERED: KETOROLAC TROMETHAMINE 30 MG/ML VIAL IV STA (14:16)
--- NOTE | 2018-02-17 17:21 | EMERGENCY ROOM VISIT NOTE ---
History Report prepared by Rachel: Kedar Castillo Under the Supervision of: Dr. Adilson Varghese D.O. First contact with patient: 11:36 Chief Complaint: CHEST PAIN Stated Complaint: CHEST PAIN Nursing Triage Summary: Chest pressure to left side, hurts worse with taking a deep breath. States he was restless throughout the night due to the pressure. Had quad bypass last . +1 pitting edema. History of Present Illness The patient is an 82 year old male who presents to the Emergency Room with complaints of constant chest pain beginning last night. The patient states that he had a quadruple bypass eight days ago and was discharged three days ago. He notes that he began to experience chest pain last night when he breathes. He reports that his pain worsens every time he breathes. The patient states that no other factors impact his pain. He notes that his pain feels like a pressure on his left side. No other exacerbating or remitting factors. He denies any abdominal pain, nausea, vomiting, diarrhea, urinary symptoms, arm pain, and jaw pain. He reports that he is on Brilinta and Lasix. He rates his pain as a 4-5/ 10. Source of History: patient Onset: last night Position: chest Symptom Intensity: 4-5/10 Quality: pressure Timing: constant Modifying Factors (Worsening): breathing Associated Symptoms: No nausea, No vomiting, No abdominal pain, No diarrhea , No urinary symptoms Note: The patient also denies any arm pain and jaw pain. Review of Systems See HPI for pertinent positives & negatives. A total of 10 systems reviewed and were otherwise negative. 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) (7) Kidney stone (8) UTI (urinary tract infection) Surgical Problems: (1) History of hernia repair (2) History of quadruple bypass Family History FH: cancer FHx: diabetes mellitus FHx: heart disease FHx: hypertension FHx: lung disease Social History Smoking Status: Former Smoker Alcohol Use: occasionally Drug Use: none Marital Status: single Housing Status: lives alone Occupation Status: retired Current/Historical Medications Scheduled Aspirin (Aspirin 81), 81 MG PO DAILY Atorvastatin (Lipitor), 40 MG PO DAILY B-Complex Vitamins (Vitamin B Complex), 1 TAB PO QAM Bimatoprost (Lumigan), 1 DROPS OPL HS Famotidine (Pepcid), 20 MG PO Q12 Ferrous Sulfate (Ferrous Sulfate), 325 MG PO DAILY Fesoterodine Fumarate (Toviaz), 1 TAB PO DAILY Furosemide (Lasix), 40 MG PO DAILY Isosorbide Mononitrate (Imdur Ext Rel), 60 MG PO DAILY Metformin Hcl (Glucophage), 850 MG PO BIDM Metoprolol Tartrate (Lopressor) (Lopressor), 12.5 MG PO BID Mirabegron (Myrbetriq Er), 50 MG PO DAILY Multiple Vitamin (Multivitamin), 1 TAB PO QAM Potassium Chloride (Micro-K Ext Rel), 20 MEQ PO DAILY Saccharomyces Boulardii (Probiotic), 1 CAP PO QAM Ticagrelor (Brilinta), 90 MG PO BID Scheduled PRN Epinephrine (Epipen), 0.3 MG IM UD PRN for BEE STING Nitroglycerin (Nitrostat), 0.4 MG UT PRN PRN for CHEST PAIN Oxycodone Ir (Roxicodone Ir), 5 MG PO Q6H PRN for Pain Allergies Coded Allergies: BEE STING (Verified Allergy, Severe, ANAPHYLAXIS, 02/17/18) NO KNOWN DRUG ALLERGIES (Verified Allergy, Unknown, ., 02/17/18) Physical Exam Vital Signs Date Time Temp Pulse Resp B/P (MAP) Pulse Ox O2 Delivery O2 Flow Rate FiO2 02/17/18 16:33 83 18 113/58 95 Room Air 02/17/18 15:33 86 18 105/50 95 Room Air 02/17/18 14:37 85 18 112/69 95 Room Air 02/17/18 13:54 82 18 126/72 96 Room Air 02/17/18 12:27 80 24 112/69 95 Room Air 02/17/18 12:15 80 02/17/18 11:19 95 Room Air 02/17/18 11:19 98 Room Air 02/17/18 11:19 37.3 78 18 120/77 95 Room Air Physical Exam GENERAL: Sitting up in bed, alert, well appearing, well nourished, no distress, non-toxic EYE EXAM: normal conjunctiva. OROPHARYNX: no exudate, no erythema, lips, buccal mucosa, and tongue normal and mucous membranes are moist NECK: supple, no nuchal rigidity, no adenopathy, non-tender LUNGS: Clear to auscultation. Normal chest wall mechanics HEART: no murmurs, S1 normal and S2 normal CHEST: Midline incision and ports that are clean, dry, and intact ABDOMEN: abdomen soft, non-tender, normo-active bowel sounds, no masses, no rebound or guarding. BACK: Back is symmetrical on inspection and there is no deformity, no midline tenderness, no CVA tenderness. SKIN: diffuse bruising to lower extremities UPPER EXTREMITIES: upper extremities are grossly normal. LOWER EXTREMITIES: No pitting edema, calves are not swollen. NEURO EXAM: Normal sensorium, cranial nerves II-XII grossly intact, normal speech, no gross weakness of arms, no gross weakness of legs. Medical Decision & Procedures ER Provider Diagnostic Interpretation: Radiology results as stated below per my review and interpretation: BEDSIDE US: Small pericardial effusion. Radiology results as stated below per my review and the radiologist's interpretation: CHEST ONE VIEW PORTABLE FINDINGS: Median sternotomy wires and mediastinal surgical clips noted. Atherosclerosis of aortic arch. Cardiac silhouette top normal in size. Left retrocardiac and basilar opacity. Small left pleural effusion suspected. Right lung and pleural space clear. Degenerative changes of the thoracic spine. IMPRESSION: 1. Left basilar consolidation and left pleural effusion. Infection is difficult to exclude. Alternatively, this may represent extensive atelectasis secondary to pleural fluid. Electronically signed by: Gary Harden M.D. 02/17/2018 12:45 PM (CHEST FOR PE) ANGIO WITH FINDINGS: Motion degraded exam. CTA: Moderate multichamber cardiac enlargement with small pericardial effusion. Coronary arterial calcifications are noted. Prior median sternotomy with CABG. Moderate mixed plaquing of the thoracic aorta without aneurysm or dissection. The imaged great vessels appear to be patent. The pulmonary arterial tree is opacified to the level of the subsegmental branches. The distal segmental and subsegmental branches however are suboptimally visualized secondary to respiratory motion. No focal filling defects identified to suggest pulmonary thromboembolic disease. CT CHEST: Small collection of fluid and air is noted within the subcutaneous tissues superior to the sternum at the midline, 1.4 x 0.9 cm on image 237 series 4. Additionally, there is mild subcutaneous stranding at the sternotomy site both superficial and deep to the sternum with ill-defined edema within the epicardial tissues. Additionally, scattered foci of air noted within the left epicardial fat pad as seen on image 72 series 4 and also directly posterior to the sternum on image 145 series 4. No dominant thyroid nodule or pathologic adenopathy identified. Trace right and moderate left pleural effusions without pneumothorax. Subsegmental dependent consolidative opacities are noted within the bilateral lower lobes, left greater than right. The central airways appear patent. There is no acute process of the imaged upper abdomen. The bones appear mildly demineralized. Multilevel degenerative changes about the thoracic spine. IMPRESSION: 1. Motion degraded exam without acute aortic pathology or evidence of pulmonary thromboembolic disease. 2. Prior median sternotomy with CABG. Soft tissue stranding both superficial and deep to the sternum with scattered foci of air and edema within the epicardial fat pad as above suggests expected postsurgical findings. Superimposed infectious etiology with mediastinitis is an additional differential consideration. Small focus of fluid and air within the superficial subcutaneous tissues at the midline superior to the sternum measuring up to 1.4 cm suggests postsurgical changes with a small developing abscess also considered. 3. Trace right and moderate left pleural effusions with left greater than right dependent consolidation within the lower lobes suggesting compressive atelectasis. The above report was generated using voice recognition software. It may contain grammatical, syntax or spelling errors. Electronically signed by: Meir Jacinto M.D. 02/17/2018 1:08 PM Laboratory Results 02/17/18 13:10 Red Blood Count 3.17, Mean Corpuscular Volume 94.6, Mean Corpuscular Hemoglobin 31.9, Mean Corpuscular Hemoglobin Concent 33.7, Mean Platelet Volume 9.0, Neutrophils (%) (Auto) 80.0, Lymphocytes (%) (Auto) 8.0, Monocytes (%) (Auto) 10.0, Eosinophils (%) (Auto) 1.3, Basophils (%) (Auto) 0.2, Neutrophils # (Auto ) 9.15, Lymphocytes # (Auto) 0.92, Monocytes # (Auto) 1.15, Eosinophils # (Auto ) 0.15, Basophils # (Auto) 0.02 02/17/18 10:42 Test 02/17/18 10:42 02/17/18 13:10 Anion Gap 10.0 mmol/L (3-11) Est Creatinine Clear Calc Drug Dose 48.1 ml/min Estimated GFR () 61.2 Estimated GFR (Non- 52.8 BUN/Creatinine Ratio 16.1 (10-20) Calcium Level 8.5 mg/dl (8.5-10.1) Total Creatine Kinase 82 U/L (39-308) Creatine Kinase MB 2.1 ng/ml (0.5-3.6) Creatine Kinase MB Ratio 2.6 (0-3.0) Troponin I 0.020 ng/ml (0-0.045) White Blood Count 11.45 K/uL (4.8-10.8) Red Blood Count 3.17 M/uL (4.7-6.1) Hemoglobin 10.1 g/dL (14.0-18.0) Hematocrit 30.0 % (42-52) Mean Corpuscular Volume 94.6 fL (80-100) Mean Corpuscular Hemoglobin 31.9 pg (25-34) Mean Corpuscular Hemoglobin Concent 33.7 g/dl (32-36) Platelet Count 315 K/uL (130-400) Mean Platelet Volume 9.0 fL (7.4-10.4) Neutrophils (%) (Auto) 80.0 % Lymphocytes (%) (Auto) 8.0 % Monocytes (%) (Auto) 10.0 % Eosinophils (%) (Auto) 1.3 % Basophils (%) (Auto) 0.2 % Neutrophils # (Auto) 9.15 K/uL (1.4-6.5) Lymphocytes # (Auto) 0.92 K/uL (1.2-3.4) Monocytes # (Auto) 1.15 K/uL (0.11-0.59) Eosinophils # (Auto) 0.15 K/uL (0-0.5) Basophils # (Auto) 0.02 K/uL (0-0.2) RDW Standard Deviation 53.5 fL (36.4-46.3) RDW Coefficient of Variation 15.9 % (11.5-14.5) Immature Granulocyte % (Auto) 0.5 % Immature Granulocyte # (Auto) 0.06 K/uL (0.00-0.02) Laboratory results per my review. Medications Administered Medications (Trade) Dose Ordered Sig/Deysi Route Start Time Stop Time Status Last Admin Dose Admin Ketorolac Tromethamine (Toradol Inj) 15 mg NOW STAT IV 02/17/18 14:16 02/17/18 14:17 DC 02/17/18 14:36 15 MG ECG Per My Interpretation Indication: chest pain Rate (beats per minute): 79 Rhythm: sinus rhythm Findings: RBBB, other (Left axis, flipped T waves in septal leads, slight elevation in lateral leads) Comparison ECG Date: 08/13/2016 Change: Compared to prior: RBBB, left axis, and slight elevation in lateral leads is old. New T wave in V2. ED Course ED COURSE: Vital signs were reviewed and were shown to be normal. The patients medical record was reviewed The above diagnostic studies were performed and reviewed. ED treatments and interventions as stated above. 1136: The patient was evaluated in room C6. A complete history and physical examination was performed. 1228: Aspirin 324mg PO 1352: I reevaluated and updated the patient. 1412: Discussed the patient's case with Dr. Wayne - Cardiothoracic Surgery, [facility]. She recommends transferring the patient and administering Toradol. She accepts the patient for transfer. 1416: Toradol Inj 15mg IV 1800: The patient was resting comfortably will be transported to [facility] at 815. Dr. Monte was made aware the patient Medical Decision Differential diagnoses includes but is not limited to acute coronary syndrome, myocardial infarction, pericarditis, pulmonary embolus, aortic dissection, pneumonia, pneumothorax, musculoskeletal, shingles, esophageal. Patient is an 82-year-old male who recently underwent cardiac bypass who presents the ER for pleuritic chest pain. Pain is only present with breathing. He otherwise has no real significant complaints. Son is at bedside who is a family practice doctor. CBC along with BMP was fairly unremarkable. CT PE was performed and did show pleural effusions. His pain is slowly pleuritic and I do question if this is truly the cause of his symptoms versus pericarditis. EKG did not show any acute ischemia. Patient was given IV Toradol after discussion with cardiothoracic surgery at [facility]. They are agreeable to accept the patient in transfer. Patient will be transferred around 8 PM. Patient remained resting comfortably in the ER. Medication Reconcilliation Current Medication List: was personally reviewed by me Blood Pressure Screening Patient's blood pressure: Normal blood pressure Blood pressure disposition: Did not require urgent referral Consults Time Called: 1407 Consulting Physician: Dr. Wayne - Cardiothoracic Surgery [facility] Returned Call: [phone] Discussed the patient's case with Dr. Wayne - Cardiothoracic Surgery. She recommends transferring the patient and administering Toradol. Impression Primary Impression: Pleuritic chest pain Additional Impression: Pleural effusion Scribe Attestation The scribe's documentation has been prepared under my direction and personally reviewed by me in its entirety. I confirm that the note above accurately reflects all work, treatment, procedures, and medical decision making performed by me. Departure Information Dispostion Still a Patient Referrals Tristan Meléndez M.D. (PCP) Patient Instructions [facility] Problem Qualifiers
[2018-02-17] MEDS ORDERED: ONDANSETRON INJ 2 MG/ML 2 ML VIAL IV STA (18:32)
[2018-02-17] MEDS ORDERED: MoRPHine SULFATE 4 MG/ML 1 ML CARP\\VIAL IV STA (18:32)
[2018-02-17 19:20] VITALS: BP 106/69; PULSE 86; O2SAT 96
== END 2018-02-17 19:20 | disposition short-term general hospital (02) ==
LOC: EDBD 11:13 → C.EDC 11:14
DX: R07.1 Chest pain on breathing (principal); J90 Pleural effusion, not elsewhere classified; E11.9 Type 2 diabetes mellitus without complications; I13.0 Hypertensive heart and chronic kidney disease with heart failure and stage 1 through stage 4 chronic kidney disease, or unspecified chronic kidney disease; N18.9 Chronic kidney disease, unspecified; Z98.890 Other specified postprocedural states; Z79.899 Other long term (current) drug therapy; Z87.891 Personal history of nicotine dependence; Z79.82 Long term (current) use of aspirin; Z79.84 Long term (current) use of oral hypoglycemic drugs; Z91.030 Bee allergy status; Z82.49 Family history of ischemic heart disease and other diseases of the circulatory system

== ENCOUNTER 2019-01-15 15:50 | Inpatient (IN) ==
[2019-01-15] MEDS ORDERED: GLUCOSE 40% GEL 15 GM TUBE PO PRN (17:33)
[2019-01-15] MEDS ORDERED: CARBOHYDRATES FOR HYPOGLYCEMIA PO PRN (17:33)
[2019-01-15] MEDS ORDERED: GLUCAGON FOR INJ 1 MG VIAL SQ PRN (17:33)
[2019-01-15] MEDS ORDERED: GLUCOSE 10 TABS/TUBE PO PRN (17:33)
[2019-01-15] MEDS ORDERED: DEXTROSE 50% 50 ML SYRINGE IV PRN (17:33)
--- NOTE | 2019-01-15 17:51 | History & Physical Report ---
Date of Service January 15, 2019 Assessment & Plan (1) Wound of left foot: - Presented with left foot wound with cellulitis following podiatry appointment with removal of foreign body. - Wound culture pending collection. - Foot XR: no evidence of osteomyelitis; posttraumatic deformity of fifth m etatarsal. - Blood cultures and lab work are pending. - Will start Zosyn/Vancomycin IV for empiric coverage. - Consult orthopedics for evaluation; NPO after midnight. - Consult wound nurse. (2) Type II diabetes mellitus: - Hold home Metformin and Glimepiride. - Start SSI coverage with gluc checks. - A1C pending in the morning. (3) Hypertension: - Continue home Metoprolol qhs as prescribed. - Holding Lasix due to being NPO after midnight. (4) Hyperlipidemia: - Continue statin as prescribed. (5) Sleep apnea: - Does not currently use CPAP. (6) Coronary artery disease: - S/p CABG x 4 vessels in February 2018 and stent placement x 2 in 2004. - Follows with cardiology; EKG is pending. - Continue home Brilinta, Aspirin, Atorvastatin, Metoprolol as prescribed. - Consider cardiology consult for pre-op work up. (7) AAA (abdominal aortic aneurysm): - S/p endovascular repair. (8) Iliac artery aneurysm: - Will monitor. (9) PAD (peripheral artery disease): - S/p complex iliac stenting in 2015. - Continue cardiac meds. (10) Pancreatic cyst: - Monitored as outpatient. (11) BPH (benign prostatic hyperplasia): - Will monitor. (12) Urinary incontinence: - Continue Myrbetriq and Toviaz as prescribed. (13) Leg edema: - Holding Lasix 40 mg PO daily while NPO. - Monitor I/Os and daily weights. (14) DVT prophylaxis: - SCDs; hold Lovenox for procedure. Dispo: Med/surg for IV abx, wound care and ortho consult. History of Present Illness Chief Complaint: Left foot wound Primary Care Provider: Myrna Herr DO Mr. Myles is an 83 year old male with past medical history of Type 2 DM, HTN, HLD, Sleep Apnea, Carotid atherosclerosis, AAA s/p endovascular repair, bilateral iliac artery aneurysms, PAD s/p iliac stenting, pancreatic cyst, BPH, CAD s/p CABG x 4 vessels who presented with a left foot wound. Patient states he injured the lateral side of his left foot a few weeks ago. He had pain in his left heel for 1-2 weeks following injury; he completed exercises at home for treatment of plantar fasciitis. Pain progressed down his foot and was located on the left side of his foot near his left 5th toe over the last 1-2 weeks. He noticed discharge on his sock starting Tuesday01/12/2019. Pt. presented for a routine podiatry appointment today. A foreign body was removed from the left sided foot wound and cultures were obtained. He was instructed to go to [facility] for admission. He denies fever/chills, URI symptoms, chest pain, SOB, cough at home. Denies abdominal pain, N/V, diarrhea or constipation, dysuria or hematuria. Allergies Allergy/AdvReac Type Severity Reaction Status Date / Time bee venom protein (honey bee) Allergy SV ANAPHYLAXIS Verified 06/13/18 10:21 No Known Drug Allergies Allergy U . Verified 06/13/18 10:21 Home Medications Home Medications Medication Instructions Recorded Confirmed Type ASPIRIN (ASPIRIN 81) 81 mg PO BID #0 11/28/15 History BIMATOPROST (LUMIGAN) 1 drp OPL HS #0 11/28/15 History B-COMPLEX VITAMINS (VITAMIN B 1 tab PO QAM #0 07/12/16 History COMPLEX) EPINEPHRINE (EPIPEN) 0.3 mg IM UD PRN #0 07/12/16 History MULTIPLE VITAMIN (MULTIVITAMIN) 1 tab PO QAM #0 07/12/16 History Nitroglycerin (Nitrostat) 0.4 mg UT PRN PRN #0 07/12/16 History Saccharomyces Boulardii (Probiotic) 1 cap PO QAM #0 07/19/17 History MIRABEGRON (MYRBETRIQ ER) 50 mg PO DAILY #0 tab 02/08/18 History ATORVASTATIN (LIPITOR) 40 mg PO DAILY #0 tab 02/17/18 History Famotidine (Pepcid) 20 mg PO Q12 #0 tab 02/17/18 History Furosemide (Lasix) 40 mg PO DAILY #0 tab 02/17/18 History METFORMIN HCL (GLUCOPHAGE) 850 mg PO BIDM #0 tab 02/17/18 History Metoprolol Tartrate (Lopressor) 12.5 mg PO HS #0 tab 02/17/18 History (Lopressor) Oxycodone Ir (Roxicodone Ir) 5 mg PO Q6H PRN #0 tab 02/17/18 History Potassium Chloride (Micro-K Ext 20 meq PO DAILY #0 cap 02/17/18 History Rel) TICAGRELOR (BRILINTA) 90 mg PO BID #0 02/17/18 History fesoterodine [Toviaz] 4 mg PO DAILY 01/15/19 01/15/19 History glimepiride 1 mg PO QAM 01/15/19 01/15/19 History iron, carbonyl [Feosol] 45 mg PO DAILY 01/15/19 01/15/19 History Past Med/Surg History Medical History AAA (abdominal aortic aneurysm) BPH (benign prostatic hyperplasia) CAD (coronary artery disease) Carotid atherosclerosis HLD (hyperlipidemia) HTN (hypertension) Iliac artery aneurysm Pancreatic cyst Sleep apnea Type II diabetes mellitus Surgical History History of lumbar laminectomy History of repair of aneurysm of abdominal aorta using endovascular stent graft S/P CABG x 4 S/P TURP Status post insertion of iliac artery stent Family History Father BPH (benign prostatic hyperplasia) Mother Heart disease Social History Communication Ability: Effective Beliefs That Will Affect Care: Hindu marital status: Current Living Situation: Alone current occupational status: retired 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 Other Information That Helps Us Care for You: No Feels Safe at Home: Yes Smoking Status: Former smoker Hx Alcohol Use: Yes (Drinks one glass of wine per night. ) Hx Substance Use: No Review of Systems All systems reviewed & are unremarkable except as noted in HPI & below Constitutional: no fever, no chills, no fatigue, no weakness and no anorexia Ear, Nose, Mouth, Throat: no dizziness, no nasal congestion, no nasal discharge, no sinus pain/pressure and no sore throat Respiratory: no cough, no chest congestion, no dyspnea, no snoring, no sputum production and no wheezing Cardiovascular: no chest pain, no palpitations, no lightheadedness, no syncope a nd no edema Gastrointestinal: no abdominal pain, no nausea, no vomiting, no constipation and no diarrhea/loose stools Genitourinary (Male): no dysuria, no difficulty urinating and no hematuria Musculoskeletal: no back pain and no joint pain Integumentary: + non-healing lesions (Left foot wound ) Neurologic: no headache(s) and no confusion Allergy / Immunological: no rash Physical Exam Vital Signs (Past 24 Hours): Last Vital Signs Temp 36.7 C 01/15/19 16:37 Pulse 72 01/15/19 16:37 Resp 16 01/15/19 16:37 BP 148/77 H 01/15/19 16:37 Pulse Ox 98 01/15/19 16:37 Physical Exam: General: Resting comfortably in no apparent distress; A&OX3 HEENT: NC/AT; PERRLA with EOMI; [place] conjunctiva, MMM. Neck: Supple and nontender Cardiac: RRR w/o murmurs, gallops or rubs Lungs: CTA bilaterally; No rhonchi, wheezing, or rales Abdomen: Bowel normoactive X 4; Nontender to palpation Rectal: Deferred : Deferred Back: NO spinous tenderness Extremities: Warm. +1 non pitting bilat LE edema. Neuro: No focal weakness Skin: Small open area on lateral side of left foot near left 5th toe, no discharge noted on exam. Code Status & VTE Plan Code Status FULL CODE Supervising Physician Co-Signing Physician Notes PA Supervision Note: I personally saw and examined the patient. 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 He denies any fevers/chills recently and thinks he bumoed his foot on something a few weeks ago. He denies walking in his bare feet. He has decreased sensation in his feet. Denies pain in the legs with walking. History reviewed with pt, and in old hospital records extensively Vitals reviewed NAD, AAOx3 RRR no mgr, median sternotomy scar present CTAB no wcr Ext: 1+ pitting edema left foot and distal leg, +erythema of entire left dorsal foot with some on plantar surface coming from open macerated wound of left platar lateral foot over 4th-5th MT heads, wound approx 2 x 1 cm. Erythema tracks up the ankle and then stops; I am unable to palpate a DP or PT pulse on left but can hear it with Doppler at bedside; Right foot DP and PT pulses 2+ 83 yo male with significnat CV and PAD, DMII history, here with left foot wound and cellulitis. Will likely need imaging of arterial circulation given wound and h/o PAD -start IV abx broad spectrum for diabeteic foot wound with cellulitis, including coverage for skin organisms and Pseudomonas, consult Ortho/Podiatry
[2019-01-15] MEDS ORDERED: VANCOMYCIN CONSULT ACTIVE PRN (18:02)
[2019-01-15] MEDS ORDERED: PIPERACILL/TAZOBAC CONSULT ACTIVE PRN (18:02)
--- NOTE | 2019-01-15 18:03 | XRay Report ---
XR foot LT 2V CLINICAL HISTORY: 83 years-old Male presenting with Rule out osteomyelitis. TECHNIQUE: Frontal and lateral views of the left foot were obtained. COMPARISON: None. FINDINGS: Posttraumatic deformity of the fifth metatarsal. Prominent enthesophyte at the origin of the plantar fascia. Soft tissue swelling and subcutaneous edema is suggested over the plantar aspect of the foref oot with irregularity at the level of the metatarsal heads. No soft tissue emphysema is radiographica lly apparent. There is no radiographic evidence of osteolysis or periosteal reaction. Mild degenerati ve changes of the first metatarsophalangeal joint. Atherosclerosis. Degenerative changes of the ankle mortise. No acute fracture or acute-appearing malalignment. IMPRESSION: 1. No radiographic evidence of osteomyelitis. The presumed site of soft tissue ulceration is along t he plantar aspect of the forefoot. 2. Posttraumatic deformity of the fifth metatarsal. 3. No acute osseous injury. 4. Multifocal degenerative changes as above. Electronically signed by: Gary Harden M.D. 01/15/2019 6:02 PM
[2019-01-15] MEDS ORDERED: PIPERACILLIN/TAZOBACTAM 3.375 GM in DEXTROSE 5% 100 ML IV STA (18:08)
[2019-01-15] MEDS ORDERED: VANCOMYCIN HCL 1,750 MG in SODIUM CHLORIDE 0.9% 500 ML IV STA (18:09)
[2019-01-15 18:15] LABS: Hematocrit (blood only) 35.3 % (42-52); Hemoglobin 12.3 g/dL (14.0-18.0); Mean Corpuscular Volume 94.4 fL (80-100); Mean Platelet Volume 9.9 fL (7.4-10.4); Platelet Count 221 K/uL (130-400); RDW Coefficient of Variation 13.7 % (11.5-14.5); RDW Standard Deviation 48.1 fL (36.4-46.3); Red Blood Count 3.74 M/uL (4.7-6.1); White Blood Count 9.85 K/uL (4.8-10.8)
[2019-01-15 18:33] LABS: Albumin Level 3.1 gm/dl (3.4-5.0); BUN Creatinine Ratio 17.9 (10-20); Calcium 8.8 mg/dl (8.5-10.1); Creatinine Clr Calc Pharmacy 64.7 ml/min; Est GFR (African American) 85.5; Est GFR (Non-African American) 73.7; Magnesium 1.8 mg/dl (1.8-2.4)
[2019-01-15 18:36] LABS: Albumin Globulin Ratio 0.9 (0.9-2); Bilirubin,Total 0.3 mg/dl (0.2-1); C Reactive Protein 8.99 mg/dl (0-0.29); Globulin 3.5 gm/dl (2.5-4.0); Total Protein 6.6 gm/dl (6.4-8.2)
[2019-01-15 18:42] LABS: Mean Corpuscular Hgb Conc 34.8 g/dL (32-36)
[2019-01-15] MEDS ORDERED: INSULIN ASPART 100 UNITS/ML 3 ML PEN SC SCH (21:00)
[2019-01-15] MEDS ORDERED: TICAGRELOR 90 MG TAB PO SCH (21:00)
--- NOTE | 2019-01-15 21:07 | Pharmacy Report ---
Pharmacy Abx Dose Short Note - Date of Service January 15, 2019 - Assessment & Plan Assessment 83 year old M receiving vanco/zosyn for treatment of cellulitis Day # 1/? of antimicrobial therapy. Pt population p'kinetics: t1/2=12hrs, ke=0.0589. BC, Wound cx pending. Plan Vancomycin * Vanco 1750mg (22mg/kg) x1 this evening to quickly achieve a therapeutic peak * then vanco 1250mg (15mg/kg) q14 starting 01/16 @0600 * Goal trough until ANANYA/Cs's result will be 15-20mcg/mL * Trough ordered for 01/17 @0930 Zosyn * EI Zosyn 3.375g q8 appropriate for eCrCl >20cc/min and clinical status Pharmacy will continue to follow and will adjust dose/frequency as necessary. Thank you.
[2019-01-15] MEDS: METOPROLOL SUCC 25MG EXT REL TAB PO SCH (21:59)
[2019-01-15] MEDS: PIPERACILLIN/TAZOBACTAM 3.375 GM in DEXTROSE 5% 100 ML IV SCH (23:33)
[2019-01-16] MEDS: SODIUM CHLORIDE 0.9% 1000ML 1,000 ML IV SCH ×2 (02:18→13:25)
[2019-01-16] MEDS: VANCOMYCIN HCL 1,250 MG in SODIUM CHLORIDE 0.9% 250 ML IV SCH ×2 (05:01→20:16)
[2019-01-16 07:09] LABS: Hematocrit (blood only) 34.5 % (42-52); Hemoglobin 11.7 g/dL (14.0-18.0); Mean Corpuscular Hgb Conc 33.9 g/dL (32-36); Mean Platelet Volume 9.9 fL (7.4-10.4); Platelet Count 208 K/uL (130-400); RDW Coefficient of Variation 13.7 % (11.5-14.5); RDW Standard Deviation 47.8 fL (36.4-46.3); Red Blood Count 3.63 M/uL (4.7-6.1); White Blood Count 6.21 K/uL (4.8-10.8)
[2019-01-16 07:18] LABS: INR 1.1 (0.9-1.1); Prothrombin Time 10.9 Seconds (9.0-12.0)
[2019-01-16] MEDS ORDERED: Nursing to Pharmacy Communication ONE ×3 (07:21→12:03)
[2019-01-16 07:29] LABS: BUN Creatinine Ratio 16.6 (10-20); Calcium 8.2 mg/dl (8.5-10.1); Creatinine Clr Calc Pharmacy 74.9 ml/min; Est GFR (African American) 94.8; Est GFR (Non-African American) 81.8
[2019-01-16] MEDS ORDERED: INSULIN ASPART 100 UNITS/ML 3 ML PEN SC SCH (07:45)
[2019-01-16 08:35] LABS: Estimated Average Glucose 128 mg/dl; Hemoglobin A1C 6.1 % (4.5-5.6)
[2019-01-16] MEDS: PIPERACILLIN/TAZOBACTAM 3.375 GM in DEXTROSE 5% 100 ML IV SCH ×3 (08:59→23:43)
[2019-01-16] MEDS ORDERED: ATORVASTATIN 40 MG TAB PO SCH (09:00)
[2019-01-16] MEDS ORDERED: FUROSEMIDE 40 MG TAB PO SCH (09:00)
[2019-01-16] MEDS ORDERED: TOVIAZ 4 MG PO SCH (09:00)
[2019-01-16] MEDS: MIRABEGRON ER 25 MG TAB PO SCH (11:15)
[2019-01-16] MEDS: ASPIRIN 81 MG ECTAB PO SCH (11:16)
[2019-01-16] MEDS: INSULIN ASPART 100 UNITS/ML 3 ML PEN SC SCH ×3 (13:20→21:41)
--- NOTE | 2019-01-16 13:32 | Hospitalist Progress Note ---
Date of Service January 16, 2019 Assessment & Plan (1) Wound of left foot: - Presented with left foot wound following podiatry appointment with removal of foreign body. - Wound culture and blood cultures are pending. - Foot XR: no evidence of osteomyelitis; posttraumatic deformity of fifth meta tarsal. - CT of left foot is pending. - Continue Zosyn/Vancomycin IV for empiric coverage. - Consult orthopedics for evaluation. - Consulted wound nurse. (2) Type II diabetes mellitus: - Hold home Metformin and Glimepiride. - SSI coverage with gluc checks. - A1C was 6.1. (3) Hypertension: - Continue home Metoprolol as prescribed. - Holding Lasix due to NPO status. (4) Hyperlipidemia: - Continue statin as prescribed. (5) Sleep apnea: - Will order BiPAP via respiratory therapy (uses at home) (6) Coronary artery disease: - S/p CABG x 4 vessels in February 2018 and stent placement x 2 in 2004. - Follows with cardiology; EKG with no acute changes. - Continue home Aspirin, Atorvastatin, Metoprolol; holding Brilinta for possible procedure. - Consider cardiology consult for pre-op work up. (7) AAA (abdominal aortic aneurysm): - S/p endovascular repair. (8) Iliac artery aneurysm: - Will monitor. (9) PAD (peripheral artery disease): - S/p complex iliac stenting in 2015. - Continue cardiac meds. (10) Pancreatic cyst: - Monitored as outpatient. (11) BPH (benign prostatic hyperplasia): - Will monitor. (12) Urinary incontinence: - Continue Myrbetriq and Toviaz as prescribed. (13) Chronic diastolic heart failure: - Most recent TTE in January 2018 showed EF 57%, mild LVH, well preserved systolic function, diastolic abnormality. - Monitor intake/output and daily weights. - Holding home Lasix as pt. was NPO overnight. - Continue Metoprolol as prescribed. (14) Leg edema: - Has increased LLE edema -- will order doppler to rule out DVT. - Holding Lasix 40 mg PO daily. (15) DVT prophylaxis: - SCDs; hold Lovenox for procedure. Dispo: Med/surg for IV abx, wound care and ortho consult. Supervising Physician Co-Signing Physician Notes Attending Attestation - Chart reviewed in detail, care plan d/w JUANJOSE Rodriguez. I agree w/ the reynolds components of her documentation. Pt with left foot wound - appreciate podiatry and vascular surgery consults. While awaiting w/u of left foot continue IV abx therapy and local wound care. Syed Laguerre MD Subjective Pt. is doing well overall today. He denies pain in left foot but does have neuropathy. Denies chest pain, SOB, N/V, diarrhea or constipation. Plan for podiatry consult today, Dr. Roberts -- discussed with physician via phone call this morning. Will order diet today, may need to be NPO after midnight. Pt. can walk >200 feet, climb flight of stairs without becoming short of breath or developing chest pain. May require cardiology consult due to recent cardiac events (CABG in February 2018). Review of Systems All systems reviewed & are unremarkable except as noted in HPI & below Constitutional: no fever, no chills, no fatigue and no weakness Respiratory: no cough and no dyspnea Cardiovascular: no chest pain, no palpitations, no lightheadedness, no syncope and no edema Gastrointestinal: no abdominal pain, no nausea, no vomiting, no constipation and no diarrhea/loose stools Genitourinary (Male): no difficulty urinating Musculoskeletal: no joint pain Integumentary: + non-healing lesions Allergy / Immunological: no rash Physical Exam Vital Signs (Past 24 Hours): Last Vital Signs Temp 36.9 C 01/16/19 07:07 Pulse 56 L 01/16/19 07:07 Resp 18 01/16/19 07:07 BP 130/73 01/16/19 07:07 Pulse Ox 97 01/16/19 07:07 Physical Exam: General: Resting comfortably in no apparent distress; A&OX3 HEENT: NC/AT; PERRLA with EOMI; [place] conjunctiva, MMM. Neck: Supple and nontender Cardiac: +systolic murmur noted on exam, regular rate and rhythm. Lungs: CTA bilaterally Abdomen: Bowel normoactive X 4; Nontender to palpation Extremities: Warm. +1 LLE non pitting edema. Neuro: No focal weakness Skin: Small open area on lateral side of left foot near left 5th toe, unchanged from prior exam. Results & Data Laboratory Results 01/16/19 01/16/19 01/16/19 Range/Units 12:06 07:20 06:25 WBC (4.8-10.8) K/uL RBC (4.7-6.1) M/uL Hgb (14.0-18.0) g/dL Hct (42-52) % MCV (80-100) fL MCH (25-34) pg MCHC (32-36) g/dL RDW Std Deviation (36.4-46.3) fL RDW Coeff of Lin (11.5-14.5) % Plt Count (130-400) K/uL MPV (7.4-10.4) fL ESR (0-14) mm/hr PT 10.9 (9.0-12.0) Seconds INR 1.1 (0.9-1.1) Sodium (136-145) mmol/L Potassium (3.5-5.1) mmol/L Chloride (98-107) mmol/L Carbon Dioxide (21-32) mmol/L Anion Gap (3-11) BUN (7-18) mg/dl Creatinine (0.6-1.4) mg/dl Est Cr Clr Drug Dosing ml/min Est GFR ( Amer) Est GFR (Non-Af Amer) BUN/Creatinine Ratio (10-20) Glucose (70-99) mg/dl POC Glucose 113 H 109 H (70-99) Estimat Average Glucose mg/dl Hemoglobin A1c (4.5-5.6) % Lactate (0.4-2.0) mmol/L Calcium (8.5-10.1) mg/dl Magnesium (1.8-2.4) mg/dl Total Bilirubin (0.2-1) mg/dl AST (15-37) U/L ALT (12-78) U/L Alkaline Phosphatase (45-117) U/L C-Reactive Protein (0-0.29) mg/dl Total Protein (6.4-8.2) gm/dl Albumin (3.4-5.0) gm/dl Globulin (2.5-4.0) gm/dl Albumin/Globulin Ratio (0.9-2) 01/16/19 01/16/19 01/16/19 Range/Units 06:25 06:25 06:25 WBC 6.21 (4.8-10.8) K/uL RBC 3.63 L (4.7-6.1) M/uL Hgb 11.7 L (14.0-18.0) g/dL Hct 34.5 L (42-52) % MCV 95.0 (80-100) fL MCH 32.2 (25-34) pg MCHC 33.9 (32-36) g/dL RDW Std Deviation 47.8 H (36.4-46.3) fL RDW Coeff of Lin 13.7 (11.5-14.5) % Plt Count 208 (130-400) K/uL MPV 9.9 (7.4-10.4) fL ESR (0-14) mm/hr PT (9.0-12.0) Seconds INR (0.9-1.1) Sodium 141 (136-145) mmol/L Potassium 4.0 (3.5-5.1) mmol/L Chloride 111 H (98-107) mmol/L Carbon Dioxide 25 (21-32) mmol/L Anion Gap 5.0 (3-11) BUN 14 (7-18) mg/dl Creatinine 0.82 (0.6-1.4) mg/dl Est Cr Clr Drug Dosing 74.9 ml/min Est GFR ( Amer) 94.8 Est GFR (Non-Af Amer) 81.8 BUN/Creatinine Ratio 16.6 (10-20) Glucose 106 H (70-99) mg/dl POC Glucose (70-99) Estimat Average Glucose 128 mg/dl Hemoglobin A1c 6.1 H (4.5-5.6) % Lactate (0.4-2.0) mmol/L Calcium 8.2 L (8.5-10.1) mg/dl Magnesium 2.0 (1.8-2.4) mg/dl Total Bilirubin (0.2-1) mg/dl AST (15-37) U/L ALT (12-78) U/L Alkaline Phosphatase (45-117) U/L C-Reactive Protein (0-0.29) mg/dl Total Protein (6.4-8.2) gm/dl Albumin (3.4-5.0) gm/dl Globulin (2.5-4.0) gm/dl Albumin/Globulin Ratio (0.9-2) 01/15/19 01/15/19 01/15/19 Range/Units 20:48 18:05 17:39 WBC (4.8-10.8) K/uL RBC (4.7-6.1) M/uL Hgb (14.0-18.0) g/dL Hct (42-52) % MCV (80-100) fL MCH (25-34) pg MCHC (32-36) g/dL RDW Std Deviation (36.4-46.3) fL RDW Coeff of Lin (11.5-14.5) % Plt Count (130-400) K/uL MPV (7.4-10.4) fL ESR (0-14) mm/hr PT (9.0-12.0) Seconds INR (0.9-1.1) Sodium (136-145) mmol/L Potassium (3.5-5.1) mmol/L Chloride (98-107) mmol/L Carbon Dioxide (21-32) mmol/L Anion Gap (3-11) BUN (7-18) mg/dl Creatinine (0.6-1.4) mg/dl Est Cr Clr Drug Dosing ml/min Est GFR ( Amer) Est GFR (Non-Af Amer) BUN/Creatinine Ratio (10-20) Glucose (70-99) mg/dl POC Glucose 152 H 93 (70-99) Estimat Average Glucose mg/dl Hemoglobin A1c (4.5-5.6) % Lactate 1.2 (0.4-2.0) mmol/L Calcium (8.5-10.1) mg/dl Magnesium (1.8-2.4) mg/dl Total Bilirubin (0.2-1) mg/dl AST (15-37) U/L ALT (12-78) U/L Alkaline Phosphatase (45-117) U/L C-Reactive Protein (0-0.29) mg/dl Total Protein (6.4-8.2) gm/dl Albumin (3.4-5.0) gm/dl Globulin (2.5-4.0) gm/dl Albumin/Globulin Ratio (0.9-2) 01/15/19 01/15/19 01/15/19 Range/Units 17:39 17:39 17:39 WBC 9.85 (4.8-10.8) K/uL RBC 3.74 L (4.7-6.1) M/uL Hgb 12.3 L (14.0-18.0) g/dL Hct 35.3 L (42-52) % MCV 94.4 (80-100) fL MCH 32.9 (25-34) pg MCHC 34.8 (32-36) g/dL RDW Std Deviation 48.1 H (36.4-46.3) fL RDW Coeff of Lin 13.7 (11.5-14.5) % Plt Count 221 (130-400) K/uL MPV 9.9 (7.4-10.4) fL ESR 45 H (0-14) mm/hr PT (9.0-12.0) Seconds INR (0.9-1.1) Sodium 137 (136-145) mmol/L Potassium 4.0 (3.5-5.1) mmol/L Chloride 107 (98-107) mmol/L Carbon Dioxide 23 (21-32) mmol/L Anion Gap 7.0 (3-11) BUN 17 (7-18) mg/dl Creatinine 0.95 (0.6-1.4) mg/dl Est Cr Clr Drug Dosing 64.7 ml/min Est GFR ( Amer) 85.5 Est GFR (Non-Af Amer) 73.7 BUN/Creatinine Ratio 17.9 (10-20) Glucose 87 (70-99) mg/dl POC Glucose (70-99) Estimat Average Glucose mg/dl Hemoglobin A1c (4.5-5.6) % Lactate (0.4-2.0) mmol/L Calcium 8.8 (8.5-10.1) mg/dl Magnesium 1.8 (1.8-2.4) mg/dl Total Bilirubin 0.3 (0.2-1) mg/dl AST 20 (15-37) U/L ALT 27 (12-78) U/L Alkaline Phosphatase 85 (45-117) U/L C-Reactive Protein 8.99 H (0-0.29) mg/dl Total Protein 6.6 (6.4-8.2) gm/dl Albumin 3.1 L (3.4-5.0) gm/dl Globulin 3.5 (2.5-4.0) gm/dl Albumin/Globulin Ratio 0.9 (0.9-2)
[2019-01-16] MEDS ORDERED: IOVERSOL 100ml IV PRN (14:20)
--- NOTE | 2019-01-16 14:21 | Ultrasound Report ---
ULTRASOUND LEFT LOWER EXTREMITY VENOUS CLINICAL HISTORY: Left foot wound and pain. Lower extremity edema. COMPARISON STUDY: No priors. TECHNIQUE: Real-time, grayscale, and color Doppler sonography of the deep veins of the left lower ext remity was performed from the inguinal crease to the calf. Compression and augmentation were utilized . FINDINGS: There is no sonographic evidence of deep venous thrombosis identified in the left lower ext remity. The common femoral, superficial femoral, and popliteal veins are patent and normally compress ible. The greater saphenous vein and the profunda femoris vein at the junction with the common femora l vein are clear. The visualized calf veins are patent. 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 This measures approximately 4 cm. IMPRESSION: 1. There is no sonographic evidence of deep venous thrombosis identified in the left lower extremity. 2. 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 Electronically signed by: Kannan Ellington M.D. 01/16/2019 2:20 PM
--- NOTE | 2019-01-16 14:59 | CT Scan Report ---
CT SCAN OF THE LEFT FOOT WITH IV CONTRAST CLINICAL HISTORY: Foot wound. COMPARISON STUDY: Left foot radiographs dated 01/15/2019. TECHNIQUE: Following the IV administration of 94 cc of Optiray 320, CT scan of the left foot is perfo rmed from the distal tibia and fibula to the foot. Images are reviewed in the axial, sagittal, and co marcus planes. IV contrast was administered without complication. A dose lowering technique was utiliz ed adhering to the principles of ALARA. CT DOSE: 241.07 mGy.cm FINDINGS: The skeletal structures are osteopenic. No acute fracture is identified. There is chronic p osttraumatic deformity of the fifth metatarsal shaft. No bony erosion or periostitis is identified. T here are dorsal and plantar calcaneal enthesophytes. Arthritic change is present throughout the foot, greatest at the first metatarsophalangeal joint. Normal fat is maintained within the sinus tarsi. Di ffuse subcutaneous soft tissue edema is present throughout the foot. More focal induration and a prob able wound is present along the plantar aspect of the fifth metatarsal head. No organized fluid colle ction is seen to indicate abscess. There is atherosclerotic calcification of the regional arteries. T he Achilles tendon is intact as visualized. The anterior, posterior, and peroneal tendons are intact as imaged. IMPRESSION: 1. No acute osseous abnormality is identified. 2. Diffuse soft tissue edema throughout the foot is typical in appearance for cellulitis. 3. A wound is suspected along the plantar aspect of the fifth metatarsal head. 4. No organized fluid collection is seen to indicate abscess. Dictated: 01/16/2019 2:32 PM Transcribed: 01/16/2019 2:59 PM [facility] [id number] [email or web address] Electronically signed by: Kannan Ellington M.D. 01/16/2019 3:06 PM
--- NOTE | 2019-01-16 15:43 | Podiatry Consultation ---
Date of Consultation January 16, 2019 Assessment & Plan (1) Wound of left foot: His white blood cell count is stable at this time and trending down. Cellulitic margins appear to be resolving. Vitals are also stable there is no concerns for sepsis at this time. The wound appears to be macerated as well as having significant fibrotic base. Cellulitis does appear to be resolving with broad-spectrum antibiotics IV. CT is negative for any concern of abscess or osteomyelitis. There are no surgical plans present at this time. For wound care I would recommend that there will be dressed with Santyl wet-to-dry dressing to be changed every day. He will need this going home. Due to significant PAD as well as history of iliac stenting and lack of pedal pulses I am ordering a duplex arterial ultrasound. If this comes back abnormal I would recommend a consultation with interventional cardiology versus vascular surgery I am ordering a PT OT evaluation because the patient will need to be offloaded from the forefoot to take pressure off the side of the wound. He would benefit from a forefoot offloading surgical shoe. I will continue to follow patient while in-house. He can follow up with my office within one week of discharge. Present on Admission?: Yes (2) Type II diabetes mellitus: (3) AAA (abdominal aortic aneurysm): (4) Iliac artery aneurysm: (5) PAD (peripheral artery disease): History of Present Illness Attending Physician: Syed Laguerre This is an 83-year-old female who is familiar to my practice presented to the office yesterday with a left foot cellulitis and retained foreign body. In the office he had an incision and drainage performed with removal of foreign body. He was sent to the hospital due to the significant cellulitis tracking from the side of the foot to the left plantar fifth metatarsal phalangeal joint to the level of the ankle. Was consulted to evaluate the patient. He has a history significant for coronary artery disease with CABG x4, PAD with iliac stenting type 2 diabetes mellitus as well as a AAA status post endovascular repair. At the time of interview he relates no pain to left lower extremity. States that he is feeling much better. Denies any nausea vomiting fevers or chills. Allergies Allergy/AdvReac Type Severity Reaction Status Date / Time bee venom protein (honey bee) Allergy SV ANAPHYLAXIS Verified 06/13/18 10:21 No Known Drug Allergies Allergy U . Verified 06/13/18 10:21 Home Medications Home Medications Medication Instructions Recorded Confirmed Type ASPIRIN (ASPIRIN 81) 81 mg PO BID #0 11/28/15 History BIMATOPROST (LUMIGAN) 1 drp OPL HS #0 11/28/15 History B-COMPLEX VITAMINS (VITAMIN B 1 tab PO QAM #0 07/12/16 History COMPLEX) EPINEPHRINE (EPIPEN) 0.3 mg IM UD PRN #0 07/12/16 History MULTIPLE VITAMIN (MULTIVITAMIN) 1 tab PO QAM #0 07/12/16 History Nitroglycerin (Nitrostat) 0.4 mg UT PRN PRN #0 07/12/16 History Saccharomyces Boulardii (Probiotic) 1 cap PO QAM #0 07/19/17 History MIRABEGRON (MYRBETRIQ ER) 50 mg PO DAILY #0 tab 02/08/18 History ATORVASTATIN (LIPITOR) 40 mg PO DAILY #0 tab 02/17/18 History Famotidine (Pepcid) 20 mg PO Q12 #0 tab 02/17/18 History Furosemide (Lasix) 40 mg PO DAILY #0 tab 02/17/18 History METFORMIN HCL (GLUCOPHAGE) 850 mg PO BIDM #0 tab 02/17/18 History Metoprolol Tartrate (Lopressor) 12.5 mg PO HS #0 tab 02/17/18 History (Lopressor) Oxycodone Ir (Roxicodone Ir) 5 mg PO Q6H PRN #0 tab 02/17/18 History Potassium Chloride (Micro-K Ext 20 meq PO DAILY #0 cap 02/17/18 History Rel) TICAGRELOR (BRILINTA) 90 mg PO BID #0 02/17/18 History fesoterodine [Toviaz] 4 mg PO DAILY 01/15/19 01/15/19 History glimepiride 1 mg PO QAM 01/15/19 01/15/19 History iron, carbonyl [Feosol] 45 mg PO DAILY 01/15/19 01/15/19 History Patient History Medical History AAA (abdominal aortic aneurysm) BPH (benign prostatic hyperplasia) CAD (coronary artery disease) Carotid atherosclerosis HLD (hyperlipidemia) HTN (hypertension) Iliac artery aneurysm Pancreatic cyst Sleep apnea Type II diabetes mellitus Surgical History History of lumbar laminectomy History of repair of aneurysm of abdominal aorta using endovascular stent graft S/P CABG x 4 S/P TURP Status post insertion of iliac artery stent Family History Father BPH (benign prostatic hyperplasia) Mother Heart disease Social History Communication Ability: Effective Beliefs That Will Affect Care: Confucianist marital status: Current Living Situation: Alone current occupational status: retired 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 Other Information That Helps Us Care for You: No Feels Safe at Home: Yes Smoking Status: Former smoker Hx Alcohol Use: Yes (Drinks one glass of wine per night. ) Hx Substance Use: No Review of Systems 12 system review of system was conducted and noted to be negative on the above HPI. Physical Exam Vital Signs (Past 24 Hours): Last Vital Signs Temp 36.9 C 01/16/19 07:07 Pulse 58 L 01/16/19 15:31 Resp 18 01/16/19 15:31 BP 131/73 01/16/19 15:31 Pulse Ox 97 01/16/19 15:31 Physical Exam: Vital signs are stable and he is alert and oriented to person place and time Absent pedal pulses bilateral lower extremity however sensation is intact to light touch Significant +2 pitting edema to the bilateral lower extremity is noted Margins of cellulitis appear to be resolving with IV antibiotics at this time. There is no pallor to the wound. Wound is approximately 1.5 cm in diameter with a depth of 0.7 cm. There is exposed tendon present. Wound has fibrotic base. There is no surrounding calor or erythema. No purulent drainage is noted on exam. There is no malodor to the wound. No tenderness is present. Results & Data Laboratory Results 1 blood cell count is trending down to normal level Diagnostic Findings CT reveals no abscesses or concerns for osteomy light at this time there is diffuse soft tissue edema throughout the foot consistent with cellulitis
[2019-01-16] MEDS: ATORVASTATIN 40 MG TAB PO SCH (18:09)
--- NOTE | 2019-01-16 18:28 | Ultrasound Report ---
US arterial duplex LE BI CLINICAL HISTORY: 83 years-old Male presenting with absent pedal pulses in setting of CABG. TECHNIQUE: Real-time grayscale and color and spectral Doppler ultrasound imaging of the bilateral low er extremities arteries was performed. Measurements calculated based on NASCET criteria. COMPARISON: None. FINDINGS: RIGHT: Common femoral artery: Calcified atherosclerotic plaque. Triphasic waveforms. Peak systolic velocity (PSV) 63 cm/s. Deep femoral artery: Calcified atherosclerotic plaque. Biphasic waveforms. PSV 51 cm/s. Superficial femoral artery: Calcified atherosclerotic plaque. Biphasic and triphasic waveforms. PSV 2 0-102 cm/s. Popliteal artery: Calcified atherosclerotic plaque. Biphasic waveforms. PSV 19-130 cm/s. Anterior tibial artery: Calcified atherosclerotic plaque. Biphasic waveforms. PSV 30-79 cm/s. Posterior tibial artery: Calcified atherosclerotic plaque. Biphasic waveforms. PSV 15-34 cm/s. Peroneal artery: Calcified atherosclerotic plaque. Biphasic waveforms. PSV 44-49 cm/s. Dorsalis pedis: Grossly patent. Biphasic waveforms. PSV 61 cm/s. LEFT: Common femoral artery: Calcified atherosclerotic plaque. Triphasic waveforms. Peak systolic velocity (PSV) 43 cm/s. Deep femoral artery: Calcified atherosclerotic plaque. Biphasic waveforms. PSV 46 cm/s. Superficial femoral artery: Aneurysmal dilatation of the distal SFA, which measures 6.9 x 3.9 x 4.6 c m. Extensive mural thrombus evident, which occupies the majority in volume of the aneurysm. Biphasic waveforms proximal to the aneurysm with PSV 84 cm/s. Monophasic waveforms distal to the aneurysm with PSV 350 cm/s. Triphasic waveforms evident in the SFA in the proximal to midportion with PSV 57-110 c m/s. Popliteal artery: Calcified atherosclerotic plaque within the patent proximal popliteal artery. Monop hasic waveforms. PSV 45 cm/s. The mid and the distal popliteal artery is occluded. Anterior tibial artery: Calcified atherosclerotic plaque within the patent proximal and distal portio ns. No demonstrable flow within the midportion. Monophasic waveforms. PSV 55 cm/s proximally and PSV 15 cm/s distally. Posterior tibial artery: Calcified atherosclerotic plaque with no demonstrable flow in the midportion . Monophasic waveforms. PSV 5-14 cm/s. Peroneal artery: Calcified atherosclerotic plaque. Monophasic waveforms. PSV 31-56 cm/s. Dorsalis pedis: Grossly patent. Monophasic waveforms. PSV 31 cm/s. ANKLE/BRACHIAL INDEX (DILAN): Not performed due to wounds on feet. Brachial: Right: mmHg. Left: mmHg. Ankle (posterior tibial): Right: mmHg. Left: mmHg. Ankle (dorsalis pedis): Right: mmHg. Left: mmHg. Ankle/brachial index: Right: , Left: . Reference ranges: Normal Ankle/Brachial Index (DILAN) 1.0-1.4; 0.91-0.99 borderline; < or = 0.9 abnormal (0.7-0.89 mild, 0.51-0.69 moderate, < or = 0.5 severe peripheral arterial disease). Normal Toe/Brachial Index (TBI) > or = 0.6; < 0.6 abnormal (0.34-0.59 mild, 0.12-0.34 moderate, < or = 0.11 severe peripheral arterial disease). IMPRESSION: 1. 6.9 cm aneurysm of the distal left superficial femoral artery with extensive mural thrombus and r esultant hemodynamically significant stenosis distal to the aneurysm. Vascular surgical consultation advised. 2. Suspected multifocal segmental occlusions within the left popliteal, anterior tibial, and posteri or tibial arteries. 3. Multifocal severe atherosclerotic stenoses as detailed above. 4. Unable to perform ankle-brachial indices. The report will be called/faxed according to standard departmental protocol. Electronically signed by: Gary Harden M.D. 01/16/2019 6:27 PM
[2019-01-16] MEDS: METOPROLOL SUCC 25MG EXT REL TAB PO SCH (20:41)
[2019-01-16] MEDS: COLLAGENASE OINT 30 GM TUBE EXT PRN (21:31)
[2019-01-17] MEDS: MIRABEGRON ER 25 MG TAB PO SCH (08:59)
[2019-01-17] MEDS: PIPERACILLIN/TAZOBACTAM 3.375 GM in DEXTROSE 5% 100 ML IV SCH (08:59)
[2019-01-17] MEDS: ASPIRIN 81 MG ECTAB PO SCH (08:59)
[2019-01-17] MEDS: INSULIN ASPART 100 UNITS/ML 3 ML PEN SC SCH ×4 (09:03→22:01)
[2019-01-17] MEDS ORDERED: VANCOMYCIN TROUGH ONE (09:30)
[2019-01-17 09:37] LABS: Hematocrit (blood only) 37.5 % (42-52); Hemoglobin 12.8 g/dL (14.0-18.0); Mean Corpuscular Hgb Conc 34.1 g/dL (32-36); Mean Corpuscular Volume 95.7 fL (80-100); Mean Platelet Volume 9.7 fL (7.4-10.4); Platelet Count 259 K/uL (130-400); RDW Coefficient of Variation 13.7 % (11.5-14.5); RDW Standard Deviation 47.4 fL (36.4-46.3); Red Blood Count 3.92 M/uL (4.7-6.1); White Blood Count 7.33 K/uL (4.8-10.8)
[2019-01-17 10:04] LABS: BUN Creatinine Ratio 12.1 (10-20); Calcium 8.7 mg/dl (8.5-10.1); Creatinine Clr Calc Pharmacy 56.4 ml/min; Est GFR (African American) 72.4; Est GFR (Non-African American) 62.4; Potassium 4.1 mmol/L (3.5-5.1)
[2019-01-17] MEDS: FUROSEMIDE 40 MG TAB PO SCH (11:20)
[2019-01-17] MEDS: POLYETHYLENE (MIRALAX) 17 GM PACK PO SCH (11:21)
[2019-01-17] MEDS: DOCUSATE SODIUM 100 MG CAP PO SCH ×2 (11:21→20:53)
[2019-01-17] MEDS: VANCOMYCIN HCL 1,250 MG in SODIUM CHLORIDE 0.9% 250 ML IV SCH (11:23)
--- NOTE | 2019-01-17 13:37 | Consultation ---
Date of Consultation January 17, 2019 Assessment & Plan (1) Aneurysm of left femoral artery: Pt with large L distal SFA aneurysm, measuring approx 5 cm by US. Awaiting CTA for verification. Pt already with evidence of embolization and at risk of further embolization which would put L limb at risk. Recommend repair of SFA aneurysm, however, will make further recs after CTA. Pt will need to have his LLE wound infection treated prior to repair. Patient was seen, examined, and chart reviewed. Agree with exam and treatment plan of the Vascular PA. Present on Admission?: Yes History of Present Illness Reason for Consultation: distal SFA aneurysm LLE, L foot wound Attending Physician: Syed Laguerre History of Present Illness 83 yo m with multiple medical problems, inclduding DMII, HTN, CAD, AAA and iliac aneurysms s/p evar at [facility], and CKD, admitted with cellulitis of L foot wound, seen in consultation today for L distal SFA aneurysm noted on US. Pt states he has been unaware of this. Admits chronic edema of LLE since saphenous vein harvest. States his L foot had a crush injury years ago and is slightly misshapen and sensitive. Noted drainage on his sock a few days ago which caused him to seek medcial attention. Also noted a small dark area to his L great toe about 1 week prior. Admits chronic fatigue for months. Denies GOODE, fever, chills, chest pain, SOB, abd pain, N/V, rest pain, claudication, other complaints. Typically follows with Dr Baeza at [facility] for his vascular hx of EVAR. States he has some carotid disease that is not bad enough to need surgery, but he is unsure how muchh is there. Arterial US demonstrates 6cm distal L SFA aneurysm with thrombus. CTA ordered, but not yet done. Allergies Allergy/AdvReac Type Severity Reaction Status Date / Time bee venom protein (honey bee) Allergy SV ANAPHYLAXIS Verified 01/19/19 09:18 No Known Drug Allergies Allergy U . Verified 01/19/19 09:18 Home Medications Home Medications Medication Instructions Recorded Confirmed Type ASPIRIN (ASPIRIN 81) 81 mg PO BID #0 11/28/15 History BIMATOPROST (LUMIGAN) 1 drp OPL HS #0 11/28/15 History B-COMPLEX VITAMINS (VITAMIN B 1 tab PO QAM #0 07/12/16 History COMPLEX) EPINEPHRINE (EPIPEN) 0.3 mg IM UD PRN #0 07/12/16 History MULTIPLE VITAMIN (MULTIVITAMIN) 1 tab PO QAM #0 07/12/16 History Nitroglycerin (Nitrostat) 0.4 mg UT PRN PRN #0 07/12/16 History Saccharomyces Boulardii (Probiotic) 1 cap PO QAM #0 07/19/17 History MIRABEGRON (MYRBETRIQ ER) 50 mg PO DAILY #0 tab 02/08/18 History ATORVASTATIN (LIPITOR) 40 mg PO DAILY #0 tab 02/17/18 History Famotidine (Pepcid) 20 mg PO Q12 #0 tab 02/17/18 History Furosemide (Lasix) 40 mg PO DAILY #0 tab 02/17/18 History METFORMIN HCL (GLUCOPHAGE) 850 mg PO BIDM #0 tab 02/17/18 History Metoprolol Tartrate (Lopressor) 12.5 mg PO HS #0 tab 02/17/18 History (Lopressor) Oxycodone Ir (Roxicodone Ir) 5 mg PO Q6H PRN #0 tab 02/17/18 History Potassium Chloride (Micro-K Ext 20 meq PO DAILY #0 cap 02/17/18 History Rel) TICAGRELOR (BRILINTA) 90 mg PO BID #0 02/17/18 History fesoterodine [Toviaz] 4 mg PO DAILY 01/15/19 01/15/19 History glimepiride 1 mg PO QAM 01/15/19 01/15/19 History iron, carbonyl [Feosol] 45 mg PO DAILY 01/15/19 01/15/19 History Patient History Medical History AAA (abdominal aortic aneurysm) BPH (benign prostatic hyperplasia) CAD (coronary artery disease) Carotid atherosclerosis Diastolic heart failure HLD (hyperlipidemia) HTN (hypertension) Iliac artery aneurysm Kidney disease Pancreatic cyst Peripheral vascular disease Sleep apnea Type II diabetes mellitus Urinary incontinence Surgical History History of lumbar laminectomy History of repair of aneurysm of abdominal aorta using endovascular stent graft S/P CABG x 4 S/P TURP Status post insertion of iliac artery stent Family History Father BPH (benign prostatic hyperplasia) Mother Heart disease Social History Communication Ability: Effective Beliefs That Will Affect Care: Worship marital status: Current Living Situation: Alone current occupational status: 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 Other Information That Helps Us Care for You: No Feels Safe at Home: Yes Smoking Status: Former smoker Hx Alcohol Use: Yes (Drinks one glass of wine per night. ) Hx Substance Use: No Review of Systems Constitutional: + fatigue and + malaise; no fever, no chills, no sweats and no weight loss Eyes: no blind spots and no problem reported Ear, Nose, Mouth, Throat: no hearing loss and no sore throat Respiratory: no cough, no dyspnea, no dyspnea on exertion and no hemoptysis Cardiovascular: no chest pain, no palpitations, no syncope, no claudication and no problem reported Gastrointestinal: no abdominal pain, no early satiety, no nausea, no vomiting, no cramping, no change in bowel habits, no diarrhea/loose stools and no blood in stools Musculoskeletal: + swelling; no back pain, no joint pain and no muscle weakness Integumentary: + skin ulcer, + wounds (L foot) and + erythema; no rash Neurologic: no localized weakness, no generalized weakness, no paralysis, no loss of sensation, no tingling, no numbness, no paresthesia, no seizure-like activity, no syncope, no headache(s) and no confusion Psychiatric: as per Subjective / HPI Hematologic / Lymphatic: no easy bleeding, no easy bruising, no coagulopathy, no night sweats and no unexplained weight loss Physical Exam Vital Signs (Past 24 Hours): Last Vital Signs Temp 37.1 C 01/17/19 07:40 Pulse 59 L 01/17/19 07:40 Resp 16 01/17/19 07:40 BP 128/69 01/17/19 07:40 Pulse Ox 97 01/17/19 07:40 Constitutional: WD/WN, vitals as above well developed, well nourished, healthy appearing, well groomed, cooperative and comfortable Eyes: PERRL, conjunctivae normal, anicteric sclerae EOM intact bilaterally ENMT: external ear and nose normal, oropharynx normal Ears: + hearing impairment (uses hearing aids) Nose: no nasal discharge Neck: trachea midline, no thyromegaly no tracheal deviation, no neck crepitus and neck nontender Respiratory: normal respiratory effort, lungs clear to auscultation able to speak in complete sentences; does not use accessory muscles, no cough and no audible wheezes Auscultation: lungs clear to auscultation bilaterally and + diminished lung sounds; no rhonchi and no wheezes Cardiovascular: Rate/Rhythm: regular rate and regular rhythm Heart Sounds: no gallop and no murmur Vessels: femoral pulses present, posterior tibial pulses present, dorsalis pedis pulses present, brachial pulses present and radial pulses present; no carotid bruit, no femoral bruit and + abnormal peripheral pulses Extremities: normal capillary refill, + pedal edema and + edema; no varicosities Chest (Breasts): Chest: normal inspection of chest Gastrointestinal (Abdomen): normal bowel sounds, soft, nontender, no hepatosplenomegaly Inspection/Auscultation: abdomen normal to inspection and normal bowel sounds; abdomen not distended and no abdominal surgical drain present Percussion/Palpation: abdomen soft; abdomen nontender, no guarding, abdomen not rigid and no abdominal mass Musculoskeletal: no cyanosis or clubbing, extremities motor strength 5/5 Head/Neck/Chest: normocephalic, head atraumatic and neck supple Extremities: extremities normal to inspection, strength 5/5 throughout and + foot abnormality (L foot +edema, rubor. +warmth, erythema lateral, ulcer. ); full ROM of extremities and no amputation noted Skin: no rashes, warm and dry normal turgor, + ulcer, + erythema and + eschar (punctate lesion L great toe, nontender, dry.); no rashes, no lesions and no excoriations Neurologic: moves all extremities and awake; no focal motor deficits and not confused Speech / Cognition: no expressive aphasia and no receptive aphasia Motor/Sensory: no tremor, no pronator drift and no sensory deficit Cranial Nerves: EOM intact bilaterally, normal facial strength and tongue midline Psychiatric: Orientation: alert, oriented x 3 and cooperative Apperance: appropriately dressed, appropriately groomed and appeared stated age; not disheveled Affect: euthymic affect Thought Process: goal directed thought process, linear/logical thought process and clear/coherent thought process Cognition: recent memory grossly intact, remote memory grossly intact, attention grossly intact and language grossly intact Estimated Intelligence: average estimated intelligence
[2019-01-17] MEDS ORDERED: IOVERSOL 100ml IV PRN (14:06)
--- NOTE | 2019-01-17 14:35 | CT Scan Report ---
CT angio abd aorta runof w con CLINICAL HISTORY: 83 years-old Male presenting with popliteal artery aneurysm. TECHNIQUE: Multidetector CT angiography of the abdomen and pelvis and bilateral lower extremity runof f was performed after the administration of intravenous contrast. 3-D volumetric and/or maximum inten sity projection (MIP) images were subsequently reconstructed for review. IV contrast: Optiray 320. On e or more dose lowering techniques were used consistent with the principles of ALARA (as low as reaso nably achievable), including automatic exposure control, mA or kV adjustment to individual patient si ze, and/or use of iterative reconstruction. Stenosis measurements were based on NASCET-like criteria (distal lumen diameter as the denominator for stenosis measurement). COMPARISON: 11/28/2015. CT DOSE (mGy.cm): The estimated cumulative dose is 1419.67 mGy.cm. FINDINGS: Group Tester topogram: Aortoiliac stent graft. Median sternotomy wires. Vasculature: Atherosclerosis of the abdominal aorta, which contains an aortobiiliac stent graft. The abdominal aor ta measures up to 3.0 x 2.4 cm in maximal axial dimension immediately proximal to the bifurcation, pr eviously 2.8 x 2.3 cm, not significant changed. The graft appears modular with evidence of a type III a endoleak at the modular overlap in the proximal portions of the bilateral common iliac arteries (se bladimir 3 image 287). This extends along the entire length of the bilateral modular common iliac stents (distal aspects of the stents shown on series 3 image 315 on the right and image 313 on the left). Ri t internal iliac artery occlusion device unchanged. Retrograde opacification of a portion of the ri t internal iliac artery. Left internal iliac artery patent with persistent aneurysmal dilatation of the proximal portion measuring up to 1.5 cm in diameter (series 3 image 365), unchanged. Resolution of the prior left common iliac artery aneurysm consistent with positive remodeling. Additionally, sig nificant interval decrease in size of the right common iliac artery aneurysm, which now measures 2.4 cm in diameter, previously 4 cm in diameter (series 3 image 329), also consistent with positive remod eling. Bilateral common, superficial, deep femoral arteries patent. Significant calcified and noncalcified a therosclerotic plaque burden along the superficial femoral arteries. Mild aneurysmal dilatation of the proximal right popliteal artery measuring 1.4 cm. Irregularity and intermittent trace ectasia of the remainder of the length of the popliteal artery. High-grade stenosi s at the mid right popliteal artery. The degree of calcified atherosclerotic plaque does not allow fo r a reliable measurement of the degree of stenosis though this is considered at least 90% (series 3 i mage 861). Below this level, the right lower leg arteries are not opacified. Aneurysm of the proximal left popliteal artery is more significant measuring 4.8 x 4.3 cm (series 3 i mage 771). Irregularity of the opacified lumen. It is not well determined how much of this aneurysm i s patent versus what portion is mural thrombus. Significant mural thrombus may be present below this level in the distal popliteal artery, which is also mildly dilated measuring 1.5 cm in diameter. The lower leg vessels in the left leg demonstrate reconstitution of flow at the level of the bifurcation of the anterior and posterior tibial arteries, which are significantly irregular due to atheroscleros is. There is also reconstitution of the distal left peroneal artery. Patent left foot arteries, which is dissimilar to the right. Remaining abdomen and pelvis: Lung bases: Normal heart size. Coronary artery and aortic valve calcification. No pericardial or pleu ral effusion. Minimal dependent changes likely atelectasis. Liver: Normal morphology. No focal lesion allowing for the early arterial phase of contrast. Conventi onal hepatic arterial anatomy. Biliary: No intrahepatic or extrahepatic biliary ductal dilatation. Mild prominence of the pancreatic duct. Well-defined hypodense cystic appearing 10 mm lesion in the pancreatic body-tail, previously 9 mm. Pancreas: Normal. Spleen: Normal. Adrenal glands: Normal. Kidneys and ureters: Hypoenhancing lower pole of the right kidney new from prior and consistent with infarct. This parenchyma appears slightly atrophic suggesting chronicity. No hydronephrosis. Mild pel viectasis. Ureters nondistended. Bladder: Large bladder diverticulum noted along the posterior right aspect of the bladder as on prior exam. Limited evaluation of the urinary bladder given the phase of contrast. Pelvic organs: Prostate enlargement likely secondary to benign prostatic hyperplasia. Bowel: Diverticulosis of the distal sigmoid colon without wall thickening or pericolonic inflammatory change. Moderate stool burden in the more proximal colon, which is mildly distended. The appendix is normal. No bowel obstruction. No concerning bowel wall thickening or evidence of pneumatosis. Peritoneal cavity: No free fluid or intraperitoneal gas. Lymph nodes: Few prominent subcentimeter left external iliac lymph nodes, nonspecific. Scattered subc entimeter retroperitoneal nodes may be reactive. Abdominal wall: Fat-containing inguinal hernias. Musculoskeletal: Degenerative changes of the spine. Degenerative changes of the hips and sacroiliac j oints. IMPRESSION: 1. 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 Nonetheless there has been positive remodeling of the bilateral common iliac artery aneu rysms compatible with treatment response. Mild residual right common iliac artery aneurysm measuring 2.4 cm, previously 4 cm. Complete resolution of prior left common iliac artery aneurysm. 2. 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 High-grade stenosis of the mid right po pliteal artery at least 90% with nonopacification of the right lower leg arteries. Patency of the low er leg arteries is not confirmed. If there is need for confirmation of occlusion, consider ultrasound for further assessment. 3. 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 A violation of the degree of mural thrombus versu s patent lumen would be better assessed with ultrasound. 4. Occlusion of the distal left popliteal artery suspected with reconstitution of flow in the left l ower leg vessels as detailed above. 5. Nonopacification of right foot arteries. Patency of the right foot vessels is in question. Again, consider ultrasound. 6. Patent left foot arteries. 7. 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 8. 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 No worrisome features. Follow-up per F u[place] criteria below. 9. Additional chronic findings as above. Summary of [place] (Heide) Criteria for IPMN Surveillance "High-risk stigmata": 1) obstructive jaundice in a patient with cystic lesion of the head of the panc reas, 2) enhancing mural nodule > or = 5 mm, 3) main pancreatic duct > or = 10 mm. * Consider surgery "Worrisome features": Clinical: pancreatitis; Imagin) cyst > or = 3 cm, 2) enhancing mural nodule < 5 mm, 3) thickened/enhancing cyst posadas, 4) main duct size 5-9 mm, 5) abrupt change in caliber of pancreatic duct with distal pancreatic atrophy, 6) lymphadenopathy, 7) increased serum level of CA 19 -9, 8) cyst growth rate > or = 5 mm in 2 years. * Endoscopic ultrasound (EUS) Surveillance if no "high-risk stigmata" or "worrisome features": * Largest cyst < 1 cm: CT or MRI/MRCP in 6 months, then every 2 years if no change. * Largest cyst 1-2 cm: CT or MRI/MRCP in 6 months x 1 year, yearly x 2 years, then lengthen interval up to 2 years if no change. * Largest cyst 2-3 cm: Endoscopic ultrasound (EUS) in 3-6 months, then lengthen interval up to 1 yea r, alternating MRI with EUS as appropriate. Consider surgery in young, fit patients with need for pro longed surveillance. * Largest cyst > 3 cm: Close surveillance alternating MRI with EUS every 3-6 months. Strongly consid er surgery in young, fit patients. Heide M, Eran Genao C, Anthony T, et al. Revisions of international consensus [place] g uidelines for the management of IPMN of the pancreas. Pancreatology. 2017; 17:738-753. Electronically signed by: Gary Harden M.D. 01/17/2019 2:34 PM
--- NOTE | 2019-01-17 16:14 | Hospitalist Progress Note ---
Date of Service January 17, 2019 Assessment & Plan (1) Wound of left foot: - Presented with left foot wound following podiatry appointment with removal of foreign body. - Wound culture +Coag negative Staph; blood cultures negative. - Foot XR: no evidence of osteomyelitis; posttraumatic deformity of fifth metatarsal. - CT of left foot was negative. - Converted Zosyn/Vancomycin to PO Bactrim per wound culture results. - Consulted podiatry, recommend Santyl wet-to-dry dressing changed daily. - PT ordered -- will need post op surgical walking boot. (2) PAD (peripheral artery disease): - Arterial duplex showed extensive Mural thrombus and distal L superficial femoral artery aneurysm. - Follows with Dr. Baeza at [facility] -- most recent stenting was in 2015. - Consulted Dr. Angelo from vascular at [facility], appreciate input. - Will likely need repair of SFA aneurysm pending results of CTA obtained this afternoon. - Continue cardiac meds as prescribed. 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 Baeza. (4) Type II diabetes mellitus: - Hold home Metformin and Glimepiride. - SSI coverage with gluc checks. - A1C was 6.1. (5) Hypertension: - Continue home Metoprolol as prescribed. - Resume home Lasix 40 mg PO daily. (6) Hyperlipidemia: - Continue statin as prescribed. (7) Sleep apnea: - BiPAP via respiratory therapy (uses at home) (8) Coronary artery disease: - S/p CABG x 4 vessels in February 2018 and stent placement x 2 in 2004. - Follows with cardiology; EKG with no acute changes. - Continue home Aspirin, Atorvastatin, Metoprolol; holding Brilinta for procedure. - No indication for cardiology consult - pt. can walk >200 feet, climb flight of stairs without developing SOB/chest pain, is low risk. (9) AAA (abdominal aortic aneurysm): - S/p endovascular repair. (10) Pancreatic cyst: - Monitored as outpatient. (11) BPH (benign prostatic hyperplasia): - Will monitor. (12) Urinary incontinence: - Continue Myrbetriq and Toviaz as prescribed. (13) Chronic diastolic heart failure: - Most recent TTE in January 2018 showed EF 57%, mild LVH, well preserved systolic function, diastolic abnormality. - Monitor intake/output and daily weights. - Resume home Lasix 40 mg PO daily. - Continue Metoprolol as prescribed. (14) Leg edema: - Doppler of LLE was negative for DVT. - Continue home Lasix PO. (15) DVT prophylaxis: - SCDs; Lovenox x 2 doses -- will hold starting evening. Dispo: Med/surg for abx; vascular surgery consulted, may require inpt procedure on Tuesday. Supervising Physician Co-Signing Physician Notes Attending Attestation - Chart reviewed in detail, care plan d/w PA Erika Rodriguez. I agree w/ the reynolds components of her documentation. Agree with bactrim based on wound culture results. PAD of left leg noted; await definitive Rx by vascular surgery. Other plans per Jennifer. Syed Laguerre MD Subjective Pt. was doing well overall today. He denied pain in left foot. Arterial duplex showed significant stenosis, vascular surgery consulted. He has not had a BM -- will start stool softeners and laxatives. Review of Systems All systems reviewed & are unremarkable except as noted in HPI & below Constitutional: no fever, no chills, no fatigue, no weakness and no anorexia Respiratory: no cough and no dyspnea Cardiovascular: no chest pain, no palpitations and no edema Gastrointestinal: + constipation; no abdominal pain, no nausea and no vomiting Genitourinary (Male): no difficulty urinating Musculoskeletal: no joint pain Integumentary: + non-healing lesions (Left foot ) Allergy / Immunological: no rash Physical Exam Vital Signs (Past 24 Hours): Last Vital Signs Temp 36.9 C 01/17/19 15:30 Pulse 65 01/17/19 15:30 Resp 18 01/17/19 15:30 BP 139/71 01/17/19 15:30 Pulse Ox 96 01/17/19 15:30 Physical Exam: General: Resting comfortably in no apparent distress; A&OX3 HEENT: NC/AT; PERRLA with EOMI; [place] conjunctiva, MMM. Neck: Supple and nontender Cardiac: +systolic murmur noted on exam, regular rate and rhythm. Lungs: CTA bilaterally Abdomen: Bowel normoactive X 4; Nontender to palpation Extremities: Warm. +1 LLE non pitting edema. Neuro: No focal weakness Skin: Small open area on lateral side of left foot near left 5th toe, unchanged from prior exam Results & Data Laboratory Results 01/17/19 01/17/19 01/17/19 Range/Units 12:32 09:26 09:26 WBC (4.8-10.8) K/uL RBC (4.7-6.1) M/uL Hgb (14.0-18.0) g/dL Hct (42-52) % MCV (80-100) fL MCH (25-34) pg MCHC (32-36) g/dL RDW Std Deviation (36.4-46.3) fL RDW Coeff of Lin (11.5-14.5) % Plt Count (130-400) K/uL MPV (7.4-10.4) fL Sodium 139 (136-145) mmol/L Potassium 4.1 (3.5-5.1) mmol/L Chloride 108 H (98-107) mmol/L Carbon Dioxide 22 (21-32) mmol/L Anion Gap 9.0 (3-11) BUN 13 (7-18) mg/dl Creatinine 1.09 (0.6-1.4) mg/dl Est Cr Clr Drug Dosing 56.4 ml/min Est GFR ( Amer) 72.4 Est GFR (Non-Af Amer) 62.4 BUN/Creatinine Ratio 12.1 (10-20) Glucose 230 H (70-99) mg/dl POC Glucose 87 (70-99) Calcium 8.7 (8.5-10.1) mg/dl Vancomycin Trough 12.2 (See Comment) mcg/ml 01/17/19 01/17/19 01/16/19 Range/Units 09:26 07:57 21:01 WBC 7.33 (4.8-10.8) K/uL RBC 3.92 L (4.7-6.1) M/uL Hgb 12.8 L (14.0-18.0) g/dL Hct 37.5 L (42-52) % MCV 95.7 (80-100) fL MCH 32.7 (25-34) pg MCHC 34.1 (32-36) g/dL RDW Std Deviation 47.4 H (36.4-46.3) fL RDW Coeff of Lin 13.7 (11.5-14.5) % Plt Count 259 (130-400) K/uL MPV 9.7 (7.4-10.4) fL Sodium (136-145) mmol/L Potassium (3.5-5.1) mmol/L Chloride (98-107) mmol/L Carbon Dioxide (21-32) mmol/L Anion Gap (3-11) BUN (7-18) mg/dl Creatinine (0.6-1.4) mg/dl Est Cr Clr Drug Dosing ml/min Est GFR ( Amer) Est GFR (Non-Af Amer) BUN/Creatinine Ratio (10-20) Glucose (70-99) mg/dl POC Glucose 120 H 125 H (70-99) Calcium (8.5-10.1) mg/dl Vancomycin Trough (See Comment) mcg/ml 01/16/19 Range/Units 17:51 WBC (4.8-10.8) K/uL RBC (4.7-6.1) M/uL Hgb (14.0-18.0) g/dL Hct (42-52) % MCV (80-100) fL MCH (25-34) pg MCHC (32-36) g/dL RDW Std Deviation (36.4-46.3) fL RDW Coeff of Lin (11.5-14.5) % Plt Count (130-400) K/uL MPV (7.4-10.4) fL Sodium (136-145) mmol/L Potassium (3.5-5.1) mmol/L Chloride (98-107) mmol/L Carbon Dioxide (21-32) mmol/L Anion Gap (3-11) BUN (7-18) mg/dl Creatinine (0.6-1.4) mg/dl Est Cr Clr Drug Dosing ml/min Est GFR ( Amer) Est GFR (Non-Af Amer) BUN/Creatinine Ratio (10-20) Glucose (70-99) mg/dl POC Glucose 89 (70-99) Calcium (8.5-10.1) mg/dl Vancomycin Trough (See Comment) mcg/ml
[2019-01-17] MEDS: ATORVASTATIN 40 MG TAB PO SCH (18:24)
[2019-01-17] MEDS: COLLAGENASE OINT 30 GM TUBE EXT PRN (18:32)
[2019-01-17] MEDS: ENOXAPARIN INJ 40 MG/0.4 ML SYR SQ SCH (18:45)
[2019-01-17] MEDS: SULFAMETHOXAZOLE/TRIMETHOPRIM DS 800/160MG TAB PO SCH (20:51)
[2019-01-17] MEDS: METOPROLOL SUCC 25MG EXT REL TAB PO SCH (20:53)
[2019-01-18] MEDS: DOCUSATE SODIUM 100 MG CAP PO SCH ×2 (09:14→21:24)
[2019-01-18] MEDS: ENOXAPARIN INJ 40 MG/0.4 ML SYR SQ SCH (09:14)
[2019-01-18] MEDS: POLYETHYLENE (MIRALAX) 17 GM PACK PO SCH (09:14)
[2019-01-18] MEDS: MIRABEGRON ER 25 MG TAB PO SCH (09:14)
[2019-01-18] MEDS: ASPIRIN 81 MG ECTAB PO SCH (09:15)
[2019-01-18] MEDS: FUROSEMIDE 40 MG TAB PO SCH (09:15)
[2019-01-18] MEDS: SULFAMETHOXAZOLE/TRIMETHOPRIM DS 800/160MG TAB PO SCH ×2 (09:15→21:24)
[2019-01-18] MEDS: INSULIN ASPART 100 UNITS/ML 3 ML PEN SC SCH ×2 (09:17→13:23)
--- NOTE | 2019-01-18 09:31 | Surgery Progress Note ---
Date of Service January 18, 2019 Assessment & Plan (1) Aneurysm of left femoral artery: Patient scheduled for endovascular repair of his left distal femoral aneurysm tomorrow morning. I have discussed the risks options and benefits of the procedure with the patient. The patient understands the risks options and benefits and agrees to the procedure. Subjective No new complaints Physical Exam Vital Signs (Past 24 Hours): Last Vital Signs Temp 36.9 C 01/18/19 06:49 Pulse 60 01/18/19 06:49 Resp 14 01/18/19 06:49 BP 130/67 01/18/19 06:49 Pulse Ox 95 01/18/19 06:49 No changes in his left leg.
[2019-01-18] MEDS ORDERED: BISACODYL 5 MG TABEC PO ONE (12:48)
[2019-01-18] MEDS ORDERED: INSULIN ASPART 100 UNITS/ML 3 ML PEN SC SCH (14:12)
--- NOTE | 2019-01-18 15:40 | Hospitalist Progress Note ---
Date of Service January 18, 2019 Assessment & Plan (1) Wound of left foot: - Presented with left foot wound following podiatry appointment with removal of foreign body. - Wound culture +Coag negative Staph; blood cultures negative. - Foot XR: no evidence of osteomyelitis; posttraumatic deformity of fifth metatarsal. - CT of left foot was negative. - Converted Zosyn/Vancomycin to PO Bactrim per wound culture (Day 2) - Consulted podiatry, recommend Santyl wet-to-dry dressing changed daily. - PT ordered -- post op walking boot with ambulation, can be discharged to home. (2) PAD (peripheral artery disease): - Arterial duplex showed extensive mural thrombus and distal L superficial femoral artery aneurysm. - Follows with Dr. Baeza at [facility] -- most recent stenting was in 2015. - Consulted Dr. Angelo from vascular at [facility], appreciate input. - Plan for endovascular repair of left distal femoral aneuryism on Tuesday01/19/19. - Continue cardiac meds as prescribed. (3) Iliac artery aneurysm: - S/p repair in 2015 at [facility] [place] Baeza. (4) Type II diabetes mellitus: - Hold home Metformin and Glimepiride. - SSI coverage with gluc checks -- loosened coverage due to hypoglycemia. - A1C was 6.1. (5) Hypertension: - Continue home Metoprolol as prescribed. - Resumed home Lasix 40 mg PO daily. (6) Hyperlipidemia: - Continue statin as prescribed. (7) Sleep apnea: - BiPAP via respiratory therapy (uses at home) (8) Coronary artery disease: - S/p CABG x 4 vessels in February 2018 and stent placement x 2 in 2004. - Follows with cardiology; EKG with no acute changes. - Continue home Aspirin, Atorvastatin, Metoprolol; holding Brilinta for procedure. - No indication for cardiology consult - pt. can walk >200 feet, climb flight of stairs without developing SOB/chest pain, is low risk. (9) AAA (abdominal aortic aneurysm): - S/p endovascular repair. (10) Pancreatic cyst: - Monitored as outpatient. (11) BPH (benign prostatic hyperplasia): - Will monitor. (12) Urinary incontinence: - Continue Myrbetriq and Toviaz as prescribed. (13) Chronic diastolic heart failure: - Most recent TTE in January 2018 showed EF 57%, mild LVH, well preserved systolic function, diastolic abnormality. - Monitor intake/output and daily weights. - Resumed home Lasix 40 mg PO daily. - Continue Metoprolol as prescribed. (14) Leg edema: - Doppler of LLE was negative for DVT. - Continue home Lasix PO. (15) DVT prophylaxis: - SCDs; Lovenox x 2 doses -- will hold starting this evening for procedure Dispo: Med/surg for abx; vascular surgery consulted, plan for procedure on 01/19/19. Supervising Physician Co-Signing Physician Notes Attending Attestation - Chart reviewed in detail, care plan d/w PA Erika Rodriguez. I agree w/ the reynolds components of her documentation. Cont antibiotics & local wound care for left foot wound. Vascular intervention planned on 01/19 of left leg SFA aneurysm by Dr. Angelo. Syed Laguerre MD Subjective Pt. is doing well overall today. Denies pain in right foot -- wound is unchanged from prior exam. Worked with PT-- approved for discharge to home. Denies chest pain, SOB, N/V, abd pain. Has not had a BM in a few days -- will give Dulcolax 5 mg PO x 1 dose. Is on scheduled Miralax/Colace as well. Review of Systems All systems reviewed & are unremarkable except as noted in HPI & below Constitutional: no fever, no chills, no fatigue, no weakness and no anorexia Respiratory: no cough and no dyspnea Cardiovascular: no chest pain, no palpitations and no edema Gastrointestinal: + constipation; no abdominal pain, no nausea and no vomiting Genitourinary (Male): no difficulty urinating Musculoskeletal: no back pain and no joint pain Integumentary: + non-healing lesions (Left foot ) Allergy / Immunological: no rash Physical Exam Vital Signs (Past 24 Hours): Last Vital Signs Temp 36.8 C 01/18/19 15:02 Pulse 62 01/18/19 15:02 Resp 16 01/18/19 15:02 BP 132/68 01/18/19 15:02 Pulse Ox 97 01/18/19 15:02 Physical Exam: General: Resting comfortably in no apparent distress; A&OX3 HEENT: NC/AT; PERRLA with EOMI; [place] conjunctiva, MMM. Neck: Supple and nontender Cardiac: +systolic murmur noted on exam, regular rate and rhythm. Lungs: CTA bilaterally Abdomen: Bowel normoactive X 4; Nontender to palpation Extremities: Warm. +1 LLE non pitting edema. Neuro: No focal weakness Skin: Small open area on lateral side of left foot near left 5th toe, no discharge or erythema noted on exam. Results & Data Laboratory Results 01/18/19 01/18/19 01/18/19 Range/Units 12:45 12:29 12:27 POC Glucose 80 61 L* 62 L* (70-99) 01/18/19 01/17/19 01/17/19 Range/Units 08:16 20:46 17:25 POC Glucose 129 H 128 H 127 H (70-99)
[2019-01-18] MEDS ORDERED: MAGNESIUM CITRATE 296 ML/BTL PO SCH (16:30)
[2019-01-18] MEDS: ATORVASTATIN 40 MG TAB PO SCH (17:26)
[2019-01-18] MEDS: METOPROLOL SUCC 25MG EXT REL TAB PO SCH (21:24)
[2019-01-19 05:51] LABS: Hematocrit (blood only) 38.6 % (42-52); Hemoglobin 13.3 g/dL (14.0-18.0); Mean Corpuscular Hgb Conc 34.5 g/dL (32-36); Mean Corpuscular Volume 95.5 fL (80-100); Mean Platelet Volume 9.7 fL (7.4-10.4); Platelet Count 294 K/uL (130-400); RDW Coefficient of Variation 13.5 % (11.5-14.5); RDW Standard Deviation 47.4 fL (36.4-46.3); Red Blood Count 4.04 M/uL (4.7-6.1); White Blood Count 7.87 K/uL (4.8-10.8)
[2019-01-19] MEDS ORDERED: SODIUM CHLORIDE 0.9% 1000ML 1,000 ML IV SCH (06:00)
[2019-01-19 06:25] LABS: BUN Creatinine Ratio 13.6 (10-20); Calcium 8.8 mg/dl (8.5-10.1); Creatinine Clr Calc Pharmacy 47.3 ml/min; Est GFR (African American) 58.5; Est GFR (Non-African American) 50.5; Magnesium 2.5 mg/dl (1.8-2.4)
[2019-01-19] MEDS ORDERED: CEFAZOLIN 1000MG 1,000 MG/7.5 ML SYR IV ONE (06:49)
--- NOTE | 2019-01-19 08:53 | Anesthesiology Consultation ---
Date of Service January 19, 2019 Assessment & Plan (1) Encounter for pre-operative examination: Chart Review Chart Review: Acceptable Risk for Surgery and Patient NOT seen in Pre Admission Testing Consults Requested none NPO Date Last Intake of Fluids: 01/18/19 Time Last Intake of Fluids: 23:00 Date Last Intake of Solids: 01/18/19 Time Last Intake of Solids: 23:59 History Surgery Operation Date: 01/19/19 08:50 Proposed Procedures p Endovascular Repair Left Popliteal Artery Aneurysm - Mansoor Angelo MD Height/Weight Height: 6 ft Weight: 171 kg Allergies Allergy/AdvReac Type Severity Reaction Status Date / Time bee venom protein (honey bee) Allergy SV ANAPHYLAXIS Verified 06/13/18 10:21 No Known Drug Allergies Allergy U . Verified 06/13/18 10:21 Medications Home Medications Medication Instructions Recorded Confirmed Last Taken ASPIRIN (ASPIRIN 81) 81 mg PO BID #0 11/28/15 01/15/19 09:00 BIMATOPROST (LUMIGAN) 1 drp OPL HS #0 11/28/15 01/14/19 21:00 B-COMPLEX VITAMINS (VITAMIN B 1 tab PO QAM #0 07/12/16 01/15/19 09:00 COMPLEX) EPINEPHRINE (EPIPEN) 0.3 mg IM UD PRN #0 07/12/16 Unknown MULTIPLE VITAMIN (MULTIVITAMIN) 1 tab PO QAM #0 07/12/16 01/15/19 09:00 Nitroglycerin (Nitrostat) 0.4 mg UT PRN PRN #0 07/12/16 Unknown Saccharomyces Boulardii (Probiotic) 1 cap PO QAM #0 07/19/17 01/15/19 09:00 MIRABEGRON (MYRBETRIQ ER) 50 mg PO DAILY #0 tab 02/08/18 01/15/19 09:00 ATORVASTATIN (LIPITOR) 40 mg PO DAILY #0 tab 02/17/18 01/15/19 09:00 Famotidine (Pepcid) 20 mg PO Q12 #0 tab 02/17/18 Unknown Furosemide (Lasix) 40 mg PO DAILY #0 tab 02/17/18 01/15/19 09:00 METFORMIN HCL (GLUCOPHAGE) 850 mg PO BIDM #0 tab 02/17/18 01/15/19 09:00 Metoprolol Tartrate (Lopressor) 12.5 mg PO HS #0 tab 02/17/18 01/14/19 21:00 (Lopressor) 12.5 mg Oxycodone Ir (Roxicodone Ir) 5 mg PO Q6H PRN #0 tab 02/17/18 Unknown Potassium Chloride (Micro-K Ext 20 meq PO DAILY #0 cap 02/17/18 Unknown Rel) TICAGRELOR (BRILINTA) 90 mg PO BID #0 02/17/18 01/15/19 09:00 90 mg fesoterodine [Toviaz] 4 mg PO DAILY 01/15/19 01/15/19 01/15/19 09:00 4 mg glimepiride 1 mg PO QAM 01/15/19 01/15/19 01/15/19 09:00 1 mg iron, carbonyl [Feosol] 45 mg PO DAILY 01/15/19 01/15/19 01/15/19 09:00 Active Medications Generic Name Dose Route Start Last Admin Trade Name Freq PRN Reason Stop Dose Admin Aspirin 81 mg 01/16/19 09:00 01/18/19 09:15 Ecotrin Ectab PO 02/15/19 08:59 81 mg QAM RAMÓN Administration Atorvastatin Calcium 40 mg 01/16/19 17:00 01/18/19 17:26 Lipitor PO 02/15/19 16:59 40 mg DAILY@1700 RAMÓN Administration Collagenase 1 appln 01/16/19 16:15 01/17/19 18:32 Santyl EXT 02/15/19 16:14 1 appln DAILY PRN Administration wound Docusate Sodium 100 mg 01/17/19 10:15 01/18/19 21:24 Colace PO 02/16/19 10:14 100 mg BID RAMÓN Administration Furosemide 40 mg 01/17/19 10:00 01/18/19 09:15 Lasix PO 02/16/19 09:59 40 mg QAM RAMÓN Administration Sodium Chloride 1,000 mls @ 80 mls/hr 01/19/19 06:00 01/19/19 06:32 Nss 1000ml IV 01/19/19 18:29 80 mls/hr .[id number] RAMÓN Administration Ioversol 94 ml 01/16/19 14:20 01/16/19 14:21 Optiray 320 100ml IV 01/20/19 14:19 94 ml ONCE PRN Administration Interaction Checking Ioversol 120 ml 01/17/19 14:06 01/17/19 14:06 Optiray 320 100ml IV 01/21/19 14:05 120 ml ONCE PRN Administration Interaction Checking Metoprolol Succinate 12.5 mg 01/15/19 21:00 01/18/19 21:24 Toprol Xl PO 02/14/19 20:59 12.5 mg HS RAMÓN Administration Mirabegron 50 mg 01/16/19 09:00 01/18/19 09:14 Myrbetriq Er PO 02/15/19 08:59 50 mg DAILY RAMÓN Administration Miscellaneous 15 - 30 gm 01/15/19 17:33 01/18/19 12:34 Carbohydrates For Hypoglycemia PO 02/14/19 17:32 15 gm UD PRN Administration Hypoglycemia Treatment Miscellaneous 1 ea 01/16/19 00:00 01/19/19 07:58 Order Awaiting Action N/A 02/15/19 00:00 Not Given QS RAMÓN Polyethylene Glycol 17 gm 01/17/19 10:15 01/18/19 09:14 Miralax Powder Packet PO 02/16/19 10:14 17 gm DAILY RAMÓN Administration Trimethoprim/Sulfamethoxazole 1 tab 01/17/19 21:00 01/18/19 21:24 Septra Ds 800/160mg Tab PO 01/27/19 20:59 1 tab Q12 RAMÓN Administration Past Medical History Medical History AAA (abdominal aortic aneurysm) BPH (benign prostatic hyperplasia) CAD (coronary artery disease) Carotid atherosclerosis Diastolic heart failure HLD (hyperlipidemia) HTN (hypertension) Iliac artery aneurysm Kidney disease Pancreatic cyst Peripheral vascular disease Sleep apnea Type II diabetes mellitus Urinary incontinence Past Family History Family History Father BPH (benign prostatic hyperplasia) Mother Heart disease Past Surgical History Surgical History History of lumbar laminectomy History of repair of aneurysm of abdominal aorta using endovascular stent graft S/P CABG x 4 S/P TURP Status post insertion of iliac artery stent Social History Smoking Status: Former smoker tobacco type: pipe Do You Dip or Chew Tobacco: No Smoking End Date: 1999 Hx Alcohol Use: Yes (Drinks one glass of wine per night. ) Hx Substance Use: No Physical Exam Vital Signs Last Vital Signs Temp 36.4 C L 01/19/19 08:05 Pulse 64 01/19/19 08:05 Resp 14 01/19/19 06:47 BP 124/70 01/19/19 08:05 Pulse Ox 94 01/19/19 08:05 Testing Electrocardiogram Date: 01/15/19 Findings: + RBBB SR with PACs 67 Laboratory Results 01/19/19 05:08 01/19/19 05:08 Blood Type O Positive 01/18/19 20:27 Antibody Screen NEGATIVE 01/18/19 20:27 PT 10.9 Seconds (9.0-12.0) 01/16/19 06:25 INR 1.1 (0.9-1.1) 01/16/19 06:25 Hemoglobin A1c 6.1 % (4.5-5.6) H 01/16/19 06:25 01/15/19 17:30 Gram Stain - Final Foot,Left Wound Culture - Final Coag negative Staphylococcus 01/15/19 17:39 Blood Culture - Preliminary Blood No growth to date. 01/15/19 17:39 Blood Culture - Preliminary Blood No growth to date. 01/19/19 01/18/19 05:58 20:55 POC Glucose 137 H 128 H
[2019-01-19] MEDS: ASPIRIN 81 MG ECTAB PO SCH (08:57)
[2019-01-19] MEDS: MIRABEGRON ER 25 MG TAB PO SCH (08:57)
[2019-01-19] MEDS: POLYETHYLENE (MIRALAX) 17 GM PACK PO SCH (08:57)
[2019-01-19] MEDS: DOCUSATE SODIUM 100 MG CAP PO SCH ×2 (08:57→20:53)
[2019-01-19] MEDS: SULFAMETHOXAZOLE/TRIMETHOPRIM DS 800/160MG TAB PO SCH ×2 (08:57→20:53)
[2019-01-19] MEDS: FUROSEMIDE 40 MG TAB PO SCH (08:57)
[2019-01-19] MEDS ORDERED: BUPIVACAINE/EPINEPHRINE 0.5% MPF 1:200,000 30 ML VIAL ONE (09:08)
[2019-01-19] MEDS ORDERED: LIDOCAINE HCL 1% 20 ML VIAL ONE (09:08)
[2019-01-19] MEDS ORDERED: fentaNYL citrate 100 MCG/2 ML VIAL ONE ×2 (09:11)
[2019-01-19] MEDS ORDERED: DEXAMETHASONE SOD INJ 4 MG/ML VIAL ONE (09:11)
[2019-01-19] MEDS ORDERED: GLYCOPYRROLATE 0.2 MG/ML VIAL ONE ×2 (09:11→10:37)
[2019-01-19] MEDS ORDERED: ROCURONIUM BROMIDE 10 MG/ML 5 ML VIAL ONE ×2 (09:11→10:37)
[2019-01-19] MEDS ORDERED: LIDOCAINE HCL 2% 2 ML VIAL/AMP(20MG/ML) INFIL ONE (09:11)
[2019-01-19] MEDS ORDERED: NEOSTIGMINE METHYLSULFATE 5 MG/5 ML SYR ONE (09:11)
[2019-01-19] MEDS ORDERED: ONDANSETRON INJ 2 MG/ML 2 ML VIAL ONE (09:11)
[2019-01-19] MEDS ORDERED: PROPOFOL IV EMULSION 10 MG/ML 20 ML VIAL IV ONE (09:11)
--- NOTE | 2019-01-19 09:11 | History & Physical Bridge Note ---
Date of Service January 19, 2019 History & Physical Bridge Note Patient for endovascular repair of a left fem pop aneurysm. I have discussed the risks options and benefits of the procedure with the patient. The patient understands the risks options and benefits and agrees to the procedure. I have examined the patient, reviewed the History & Physical and in the interval since the performance of the History & Physical I have noted the following changes of clinical significance: no changes noted
[2019-01-19] MEDS ORDERED: HEPARIN SOD (PORCINE) 1000 UNIT/ML 10 ML VIAL ONE (09:12)
[2019-01-19] MEDS ORDERED: NITROGLYCERIN 5 MG/ML 10 ML VIAL ONE (09:15)
[2019-01-19] MEDS ORDERED: SODIUM CHLORIDE 0.9% INJ 10 ML VIAL ONE (09:15)
[2019-01-19] MEDS ORDERED: LIDOCAINE 2% JELLY 5 ML TUBE ONE (09:16)
[2019-01-19] MEDS ORDERED: LABETALOL HCL IV 5 MG/ML 20ML IV PRN (09:34)
[2019-01-19] MEDS ORDERED: ONDANSETRON INJ 2 MG/ML 2 ML VIAL IV PRN ×2 (09:34→12:23)
[2019-01-19] MEDS ORDERED: HYDROmorphone INJ 1 MG/ML SYRINGE IV PRN (09:34)
[2019-01-19] MEDS ORDERED: ePHEDrine sulfate 50 MG/ML AMP IV PRN (09:34)
[2019-01-19] MEDS ORDERED: PHENYLEPHRINE 100MCG/ML 5ML SYR IV PRN (09:34)
[2019-01-19] MEDS ORDERED: MEPERIDINE HCL 25 MG/ML CARP IV PRN (09:34)
[2019-01-19] MEDS ORDERED: ATROPINE SULFATE 0.1 MG/ML 10ML SYR IV PRN (09:34)
[2019-01-19] MEDS ORDERED: fentaNYL citrate 100 MCG/2 ML VIAL IV PRN (09:34)
[2019-01-19] MEDS ORDERED: CEFAZOLIN 250 MG/ML 1 GM VIAL ONE (10:06)
--- NOTE | 2019-01-19 10:33 | Procedure Note ---
Angiogram Post Procedure Fluoroscopy Time (minutes): 0.3 Radiation (mGy): 29 Contrast: 65 Post Operative Report Pre & Post Diagnosis Operation Date: 01/19/19 08:50 Pre-Op Diagnosis: Popliteal Artery Aneurysm Post-Op Diagnosis: Thrombosed popliteal Artery Aneurysm Procedure Operation Date: 01/19/19 08:50 Actual Procedures p Left Lower Extremity Arteriogram, Mechanical Closure of Left Femoral Artery. - Mansoor Angelo MD Surgeon Dr. Gi Aguiar MD Master Control Engineer Teo Aguiar MD Estimated Blood Loss 3 Findings See Below Patient has a patent common femoral artery on the left side patient has a patent SFA on the left side patient has a distal SFA and proximal popliteal artery aneurysm that appears to be thrombosed with multiple collaterals reconstituting below the knee to a peroneal artery that goes down to the foot and then reconstitutes the DP and PT at the ankle level. Specimens None Anesthesia Type General Complications none Disposition Accompanied Patient To Recovery: No Disposition: Recovery Room Indications Nonhealing wound of the left foot and found to have a distal SFA/proximal popliteal artery aneurysm in the left lower extremity. Description of Procedure The patient was placed supine on the angiography table. The left groin was prep ped and draped in a sterile fashion. The left common femoral artery was accessed using a 18 gauge needle ultrasound guidance in an antegrade position. A J wire was threaded and the 11 blade was used to make a jose eduardo in the skin. Following that a 5 Nigerian sheath was advanced over the J-wire after the axis needle was removed. An angiogram of the left lower extremity was then completed. An 0.035 angled glide wire was then advanced into the distal SFA and an angled glide catheter was advanced to the distal SFA just at the proximal edge of the aneurysm. An angiogram of the left lower extremity below the knee down to the foot was completed. With a peroneal artery as the only runoff and a complete thrombosis of the SFA/popliteal artery aneurysm the decision was made that the right next move for this patient would be a bypass to the peroneal artery. Glidewire was then advanced into the catheter and catheter was withdrawn over the wire and the wire was then withdrawn. Through the 5 Nigerian sheath and a 5 Nigerian sheath was exchanged with a 6 Nigerian Star close dilator and sheath. The Star close device was then deployed. Steps 1 through 4 were completed and the patient had hemostasis of the left groin following the deployment of the star closure device. Signals were checked after the deployment of the closure device and were unchanged from preop. Patient tolerated the procedure well and at end of the case had no sign of any hematoma in his left groin. The patient was taken back to the recovery area in a flat position. Dr. Cohen was present for the entirety of the procedure. I attest to the content of the Intraoperative Record and any orders documented therein. Any exceptions are noted below.
[2019-01-19] MEDS ORDERED: ePHEDrine sulfate 50 MG/ML AMP ONE (10:37)
[2019-01-19] MEDS ORDERED: VISIPAQUE IV PRN (10:38)
--- NOTE | 2019-01-19 10:48 | Post Operative Brief Note ---
Immediate Post Op Note v1 Date of Surgery January 19, 2019 Pre & Post Diagnosis Operation Date: 01/19/19 08:50 Pre-Op Diagnosis: Popliteal Artery Aneurysm Post-Op Diagnosis: Popliteal Artery Aneurysm Procedure Operation Date: 01/19/19 08:50 Actual Procedures p Left Lower Extremity Arteriogram, Mechanical Closure of Left Femoral Artery. - Mansoor Angelo MD Surgeon Mansoor Angelo MD Fish Farm Laborer Teo Aguiar MD Estimated Blood Loss 3 Findings Consistent with Post-Op Diagnosis Drains [place] Catheter Anesthesia Type General Complications none Disposition Accompanied Patient To Recovery: No Disposition: Recovery Room
--- NOTE | 2019-01-19 11:46 | Anesthesiology Progress Note ---
Date of Service January 19, 2019 Anesthesia Post Procedure Vital Signs Vital Signs: Temp Pulse Pulse Pulse Pulse Resp BP 01/19/19 11:20 56 L 15 119/60 01/19/19 11:15 57 L 13 115/62 01/19/19 11:10 58 L 14 113/63 01/19/19 11:05 60 15 121/64 01/19/19 11:00 63 16 119/66 01/19/19 10:55 68 14 126/68 01/19/19 10:53 36.7 C 67 62 20 128/66 01/19/19 09:11 36.5 C 61 16 01/19/19 08:05 36.4 C L 64 01/19/19 06:47 36.9 C 69 14 01/18/19 22:58 36.8 C 55 L 15 01/18/19 21:23 62 01/18/19 15:02 36.8 C 62 16 BP BP Pulse Ox 01/19/19 11:20 99 01/19/19 11:15 99 01/19/19 11:10 99 01/19/19 11:05 99 01/19/19 11:00 99 01/19/19 10:55 99 01/19/19 10:53 142/49 H 98 01/19/19 09:11 154/81 H 98 01/19/19 08:05 124/70 94 01/19/19 06:47 122/71 97 01/18/19 22:58 123/68 98 01/18/19 21:23 145/78 H 01/18/19 15:02 132/68 97 Pain Intensity Left Foot: Pain Intensity: 1 Left Groin: Pain Intensity: 0 Notes Mental Status: alert / awake / arousable Patient Amnestic to Procedure: Yes Nausea / Vomiting: adequately controlled Pain: adequately controlled Airway Patency, RR, SpO2: stable & adequate BP & HR: stable & adequate Hydration State: stable & adequate Anesthetic Complications: no major complications apparent and Pt Satisfied with anesthetic care Notes: The patient tolerated the procedure well. The patient was an unsuitable candidate for endovascular repair and will need to have a bypass performed. He is awake and stable in the PACU.
[2019-01-19] MEDS: SODIUM CHLORIDE 0.9% 1000ML 1,000 ML IV SCH ×2 (12:31→20:30)
--- NOTE | 2019-01-19 15:54 | Hospitalist Progress Note ---
Date of Service January 19, 2019 Assessment & Plan (1) Wound of left foot: - Presented with left foot wound following podiatry appointment with removal of foreign body. - Wound culture +Coag negative Staph; blood cultures negative. - Foot XR: no evidence of osteomyelitis; posttraumatic deformity of fifth metatarsal. - CT of left foot was negative. - Continue Bactrim PO (Day 3) - Consulted podiatry, recommend Santyl wet-to-dry dressing changed daily. - PT ordered -- post op walking boot with ambulation, can be discharged to home. (2) PAD (peripheral artery disease): - Arterial duplex showed extensive mural thrombus and distal L superficial femoral artery aneurysm. - Follows with Dr. Baeza at [facility] -- most recent stenting was in 2015. - Consulted Dr. Angelo from vascular at [facility], appreciate input. - Arteriogram completed today in [place] -- will need to follow up at [facility] for further evaluation. Has appt scheduled on Tuesday. - Continue cardiac meds as prescribed. (3) Iliac artery aneurysm: - S/p repair in 2015 at [facility] with Dr. Baeza. (4) Type II diabetes mellitus: - Hold home Metformin and Glimepiride. - D/c'ed SSI due to controlled blood glucose levels. - A1C was 6.1. (5) Hypertension: - Continue home Metoprolol and Lasix as prescribed. (6) Hyperlipidemia: - Continue statin as prescribed. (7) Sleep apnea: - BiPAP via respiratory therapy (uses at home) (8) Coronary artery disease: - S/p CABG x 4 vessels in February 2018 and stent placement x 2 in 2004. - Follows with cardiology; EKG with no acute changes. - Continue home Aspirin, Atorvastatin, Metoprolol; plan to resume Brilinta on 01/20/19. - No indication for cardiology consult. (9) AAA (abdominal aortic aneurysm): - S/p endovascular repair. (10) Pancreatic cyst: - Monitored as outpatient. (11) BPH (benign prostatic hyperplasia): - Will monitor. (12) Urinary incontinence: - Continue Myrbetriq and Toviaz as prescribed. (13) Chronic diastolic heart failure: - Most recent TTE in January 2018 showed EF 57%, mild LVH, well preserved systolic function, diastolic abnormality. - Monitor intake/output and daily weights. - Continue Metoprolol and Lasix as prescribed. (14) Leg edema: - Doppler of LLE was negative for DVT. - Continue home Lasix PO. (15) DVT prophylaxis: - SCDs; resume Lovenox on 01/20/19. Dispo: Med/surg for abx; discharge home on 01/20/19. Will need to follow up with [facility] on Tuesday as outpatient for vascular surgery evaluation. Supervising Physician Co-Signing Physician Notes Attending Attestation - Chart reviewed in detail, care plan d/w PA Erika Rodriguez. I agree w/ the reynolds components of her documentation. Cont antibiotics & local wound care for left foot wound. LLE arteriogram performed by Dr. Angelo today. This showed a popliteal artery aneurysm in addition to distal SFA aneurysm. Dr. Angelo recommending f/u with Dr. Rosario at [facility]. Thus, no intervention performed on LLE today. Syed Laguerre MD Subjective Pt. is doing well. Denies pain in left foot, did not visualize wound today as dressing was recently changed. Complains of sore throat following procedure, had difficulty with eating lunch. Had two small BMs since admission, feels constipated. Did not respond to mag citrate yesterday, will try lactulose. Review of Systems All systems reviewed & are unremarkable except as noted in HPI & below Constitutional: no fever, no chills, no fatigue and no weakness Ear, Nose, Mouth, Throat: + sore throat Respiratory: no cough and no dyspnea Cardiovascular: no chest pain, no palpitations and no edema Gastrointestinal: + constipation; no abdominal pain, no nausea and no vomiting Genitourinary (Male): no dysuria and no difficulty urinating Musculoskeletal: no joint pain Integumentary: + non-healing lesions (Left foot ) Allergy / Immunological: no rash Physical Exam Vital Signs (Past 24 Hours): Last Vital Signs Temp 36.5 C 01/19/19 15:02 Pulse 65 01/19/19 15:02 Resp 18 01/19/19 15:02 BP 113/53 L 01/19/19 15:02 Pulse Ox 94 01/19/19 15:02 Physical Exam: General: Resting comfortably in no apparent distress; A&OX3 HEENT: NC/AT; PERRLA with EOMI; [place] conjunctiva, MMM. Neck: Supple and nontender Cardiac: +systolic murmur noted on exam, regular rate and rhythm. Lungs: CTA bilaterally; No rhonchi, wheezing, or rales Abdomen: Bowel normoactive X 4; Nontender to palpation Extremities: Warm. +1 non pitting LLE edema. Neuro: No focal weakness Skin: Lesion on left foot was not visualized on exam. Results & Data Laboratory Results 01/19/19 01/19/19 01/19/19 Range/Units 11:00 08:54 05:58 WBC (4.8-10.8) K/uL RBC (4.7-6.1) M/uL Hgb (14.0-18.0) g/dL Hct (42-52) % MCV (80-100) fL MCH (25-34) pg MCHC (32-36) g/dL RDW Std Deviation (36.4-46.3) fL RDW Coeff of Lin (11.5-14.5) % Plt Count (130-400) K/uL MPV (7.4-10.4) fL Sodium (136-145) mmol/L Potassium (3.5-5.1) mmol/L Chloride (98-107) mmol/L Carbon Dioxide (21-32) mmol/L Anion Gap (3-11) BUN (7-18) mg/dl Creatinine (0.6-1.4) mg/dl Est Cr Clr Drug Dosing ml/min Est GFR ( Amer) Est GFR (Non-Af Amer) BUN/Creatinine Ratio (10-20) Glucose (70-99) mg/dl POC Glucose 147 H 116 H 137 H (70-99) Calcium (8.5-10.1) mg/dl Magnesium (1.8-2.4) mg/dl Blood Type Antibody Screen Crossmatch 01/19/19 01/19/19 01/18/19 Range/Units 05:08 05:08 20:55 WBC 7.87 (4.8-10.8) K/uL RBC 4.04 L (4.7-6.1) M/uL Hgb 13.3 L (14.0-18.0) g/dL Hct 38.6 L (42-52) % MCV 95.5 (80-100) fL MCH 32.9 (25-34) pg MCHC 34.5 (32-36) g/dL RDW Std Deviation 47.4 H (36.4-46.3) fL RDW Coeff of Lin 13.5 (11.5-14.5) % Plt Count 294 (130-400) K/uL MPV 9.7 (7.4-10.4) fL Sodium 137 (136-145) mmol/L Potassium 4.0 (3.5-5.1) mmol/L Chloride 104 (98-107) mmol/L Carbon Dioxide 29 (21-32) mmol/L Anion Gap 4.0 (3-11) BUN 18 (7-18) mg/dl Creatinine 1.30 (0.6-1.4) mg/dl Est Cr Clr Drug Dosing 47.3 ml/min Est GFR ( Amer) 58.5 Est GFR (Non-Af Amer) 50.5 BUN/Creatinine Ratio 13.6 (10-20) Glucose 122 H (70-99) mg/dl POC Glucose 128 H (70-99) Calcium 8.8 (8.5-10.1) mg/dl Magnesium 2.5 H (1.8-2.4) mg/dl Blood Type Antibody Screen Crossmatch 01/18/19 01/18/19 Range/Units 20:27 17:13 WBC (4.8-10.8) K/uL RBC (4.7-6.1) M/uL Hgb (14.0-18.0) g/dL Hct (42-52) % MCV (80-100) fL MCH (25-34) pg MCHC (32-36) g/dL RDW Std Deviation (36.4-46.3) fL RDW Coeff of Lin (11.5-14.5) % Plt Count (130-400) K/uL MPV (7.4-10.4) fL Sodium (136-145) mmol/L Potassium (3.5-5.1) mmol/L Chloride (98-107) mmol/L Carbon Dioxide (21-32) mmol/L Anion Gap (3-11) BUN (7-18) mg/dl Creatinine (0.6-1.4) mg/dl Est Cr Clr Drug Dosing ml/min Est GFR ( Amer) Est GFR (Non-Af Amer) BUN/Creatinine Ratio (10-20) Glucose (70-99) mg/dl POC Glucose 100 H (70-99) Calcium (8.5-10.1) mg/dl Magnesium (1.8-2.4) mg/dl Blood Type O Positive Antibody Screen NEGATIVE Crossmatch See Detail
[2019-01-19] MEDS ORDERED: LACTULOSE SYRUP 20 GM/30 ML UDC PO ONE (15:56)
--- NOTE | 2019-01-19 17:44 | Orthopedic Progress Note ---
Date of Service January 19, 2019 Assessment & Plan (1) Wound of left foot: Wound does appear to be improving at this point his vital signs are stable and his white blood cell count is normalized. Cellulitis is resolving the left lower extremity. Wound is improved and base of wound with decreased fibrotic tissue and increasing granular tissue at this time. Decreased drainage is noted on exam today. I recommend continuing Santyl with saline wet-to-dry over top. He can continue this going home. It appears that he will have consultation with [facility] in [place] for femoral-popliteal bypass as well as possible intervention on the iliac aneurysm. He has an appointment scheduled for Tuesday. Hopeful for intervention this week. He can continue conservative therapy of the wound at this time. He can follow-up with me in my office within 1 week of discharge from the hospital. My office can be reached at [phone]. Please feel free to call me with any further questions Present on Admission?: Yes Subjective Patient seen resting comfortably at bedside today denies any nausea vomiting fevers or chills. States that he is tired from the procedure that he had done to the left lower extremity today. He has plans to go to [facility] for vascular surgical intervention likely to consist of femoropopliteal bypass. Intervention today was unable to be performed. Physical Exam Vital Signs (Past 24 Hours): Last Vital Signs Temp 36.5 C 01/19/19 15:02 Pulse 65 01/19/19 15:02 Resp 18 01/19/19 15:02 BP 113/53 L 01/19/19 15:02 Pulse Ox 94 01/19/19 15:02 Physical Exam: He is alert and oriented to person place and time his vital signs are stable Left foot wound she has resolving cellulitis with decreased drainage from previous status. There continues to be a fibrotic base with some improvement and increased granular tissue at this time. No malodor is present no purulence is present. Cellulitis does appear to be resolving.
[2019-01-19] MEDS: ATORVASTATIN 40 MG TAB PO SCH (18:11)
[2019-01-19] MEDS: METOPROLOL SUCC 25MG EXT REL TAB PO SCH (20:54)
[2019-01-19] MEDS ORDERED: LACTULOSE SYRUP 20 GM/30 ML UDC PO PRN (21:00)
[2019-01-20] MEDS: SODIUM CHLORIDE 0.9% 1000ML 1,000 ML IV SCH (06:07)
[2019-01-20 07:08] LABS: Hematocrit (blood only) 33.5 % (42-52); Hemoglobin 11.2 g/dL (14.0-18.0); Mean Corpuscular Hgb Conc 33.4 g/dL (32-36); Mean Corpuscular Volume 95.7 fL (80-100); Mean Platelet Volume 9.6 fL (7.4-10.4); Platelet Count 251 K/uL (130-400); RDW Coefficient of Variation 13.7 % (11.5-14.5); White Blood Count 6.12 K/uL (4.8-10.8)
[2019-01-20 07:34] LABS: BUN Creatinine Ratio 12.8 (10-20); Calcium 8.3 mg/dl (8.5-10.1); Creatinine Clr Calc Pharmacy 60.2 ml/min; Est GFR (African American) 78.4; Est GFR (Non-African American) 67.7; Magnesium 2.4 mg/dl (1.8-2.4); Potassium 3.8 mmol/L (3.5-5.1)
[2019-01-20] MEDS: ASPIRIN 81 MG ECTAB PO SCH (09:41)
[2019-01-20] MEDS: TICAGRELOR 90 MG TAB PO SCH ×2 (09:41→21:06)
[2019-01-20] MEDS: DOCUSATE SODIUM 100 MG CAP PO SCH ×2 (09:41→21:06)
[2019-01-20] MEDS: FUROSEMIDE 40 MG TAB PO SCH (09:42)
[2019-01-20] MEDS: MIRABEGRON ER 25 MG TAB PO SCH (09:44)
[2019-01-20] MEDS: SULFAMETHOXAZOLE/TRIMETHOPRIM DS 800/160MG TAB PO SCH ×2 (09:44→21:06)
[2019-01-20] MEDS: ENOXAPARIN INJ 40 MG/0.4 ML SYR SQ SCH (09:45)
[2019-01-20] MEDS: POLYETHYLENE (MIRALAX) 17 GM PACK PO SCH ×11 (09:46→23:51)
--- NOTE | 2019-01-20 10:58 | XRay Report ---
KUB CLINICAL HISTORY: Generalized abdominal pain. FINDINGS: An AP, portable, supine abdominal radiograph is correlated with abdominal CT dated 9. An aortobiiliac stent graft is again noted. There is no bowel obstruction. Moderate constipation i s observed. No evidence of intraperitoneal free air is seen on this supine image. Phleboliths are obs erved in the pelvis. The skeletal structures are osteopenic. Lumbosacral spondylosis is noted. The [place] pelvis appears intact. IMPRESSION: 1. Moderate constipation with no bowel obstruction identified. 2. An aortobiiliac stent graft is again noted. Electronically signed by: Kannan Ellington M.D. 01/20/2019 10:57 AM
--- NOTE | 2019-01-20 16:53 | Hospitalist Progress Note ---
Date of Service January 20, 2019 Assessment & Plan (1) Wound of left foot: - Presented with left foot wound following podiatry appointment with removal of foreign body. - Wound culture +Coag negative Staph; blood cultures negative. - Foot XR: no evidence of osteomyelitis; posttraumatic deformity of fifth metatarsal. - CT of left foot was negative. - Continue Bactrim PO (Day 4) - Consulted podiatry, recommend Santyl wet-to-dry dressing changed daily. - PT ordered -- post op walking boot with ambulation, can be discharged to home. (2) PAD (peripheral artery disease): - Arterial duplex showed extensive mural thrombus and distal L superficial femoral artery aneurysm. - Follows with Dr. Baeza at [facility] -- most recent stenting was in 2015. - Consulted Dr. Angelo from vascular at [facility], appreciate input. - Arteriogram completed on 01/19/19 -- will need to follow up at [facility] for further evaluation on Tuesday. - Continue cardiac meds as prescribed. (3) Iliac artery aneurysm: - S/p repair in 2015 at [facility] with Dr. Baeza. (4) Constipation: - Has had two small BMs since admission; KUB showed moderate constipation. - Did not respond to Colace, Miralax, Mag citrate, Lactulose or enema. - Will trial Miralax q1hr until he has a large BM. - Encourage ambulation. (5) Type II diabetes mellitus: - Hold home Metformin and Glimepiride. - D/c'ed SSI due to controlled blood glucose levels. - A1C was 6.1. (6) Hypertension: - Continue home Metoprolol and Lasix as prescribed. (7) Hyperlipidemia: - Continue statin as prescribed. (8) Sleep apnea: - BiPAP via respiratory therapy (uses at home) (9) Coronary artery disease: - S/p CABG x 4 vessels in February 2018 and stent placement x 2 in 2004. - Follows with cardiology; EKG with no acute changes. - Continue home Aspirin, Atorvastatin, Metoprolol; resumed Brilinta. - No indication for cardiology consult. (10) AAA (abdominal aortic aneurysm): - S/p endovascular repair. (11) Pancreatic cyst: - Monitored as outpatient. (12) BPH (benign prostatic hyperplasia): - Will monitor. (13) Urinary incontinence: - Continue Myrbetriq and Toviaz as prescribed. (14) Chronic diastolic heart failure: - Most recent TTE in January 2018 showed EF 57%, mild LVH, well preserved systolic function, diastolic abnormality. - Monitor intake/output and daily weights. - Continue Metoprolol and Lasix as prescribed. (15) Leg edema: - Doppler of LLE was negative for DVT. - Continue home Lasix PO. (16) DVT prophylaxis: - SCDs; resumed Lovenox. Dispo: Med/surg for abx; discharge home pending improvement in constipation. Will need to follow up with [facility] on Tuesday as outpatient for vascular surgery evaluation. Supervising Physician Co-Signing Physician Notes Attending Attestation - Chart reviewed in detail, care plan d/w PA Erika Rodriguez. I agree w/ the reynolds components of her documentation. Patient w/ ongoing constipation which appears to be delaying his d/c today. Will give bowel regimen and hopefully patient can d/c home tomorrow. He has f/u with Dr. Rosario on TUESDAY at [facility]. Syed Laguerre MD Subjective Pt. is constipated -- had 2 small BM since admission but feels bloated/distended. Did not respond to Lactulose or mag citrate. Received enema this morning without improvement. Will trial Miralax q1hr until he has a BM. Abd XR showed moderate constipation, was neg for ileus or obstruction. Review of Systems All systems reviewed & are unremarkable except as noted in HPI & below Constitutional: no fever, no chills, no fatigue and no weakness Respiratory: no cough and no dyspnea Cardiovascular: no chest pain, no palpitations and no edema Gastrointestinal: + bloating and + constipation; no abdominal pain, no nausea, no vomiting and no diarrhea/loose stools Genitourinary (Male): no difficulty urinating Musculoskeletal: no joint pain Integumentary: + non-healing lesions Allergy / Immunological: no rash Physical Exam Vital Signs (Past 24 Hours): Last Vital Signs Temp 36.4 C L 01/20/19 14:57 Pulse 56 L 01/20/19 14:57 Resp 20 01/20/19 14:57 BP 129/76 01/20/19 14:57 Pulse Ox 91 01/20/19 14:57 Physical Exam: General: Resting comfortably in no apparent distress; A&OX3 HEENT: NC/AT; PERRLA with EOMI; [place] conjunctiva, MMM. Neck: Supple and nontender Cardiac: +systolic murmur noted on exam. regular rate. Lungs: CTA bilaterally; No rhonchi, wheezing, or rales Abdomen: Bowel normoactive X 4; Nontender to palpation Extremities: Warm. +Very mild LLE edema. Neuro: No focal weakness Skin: Lesion on left foot was not visualized on exam. Results & Data Laboratory Results 01/20/19 01/20/19 01/20/19 Range/Units 11:56 08:12 06:19 WBC (4.8-10.8) K/uL RBC (4.7-6.1) M/uL Hgb (14.0-18.0) g/dL Hct (42-52) % MCV (80-100) fL MCH (25-34) pg MCHC (32-36) g/dL RDW Std Deviation (36.4-46.3) fL RDW Coeff of Lin (11.5-14.5) % Plt Count (130-400) K/uL MPV (7.4-10.4) fL Sodium 141 (136-145) mmol/L Potassium 3.8 (3.5-5.1) mmol/L Chloride 111 H (98-107) mmol/L Carbon Dioxide 23 (21-32) mmol/L Anion Gap 7.0 (3-11) BUN 13 (7-18) mg/dl Creatinine 1.02 (0.6-1.4) mg/dl Est Cr Clr Drug Dosing 60.2 ml/min Est GFR ( Amer) 78.4 Est GFR (Non-Af Amer) 67.7 BUN/Creatinine Ratio 12.8 (10-20) Glucose 100 H (70-99) mg/dl POC Glucose 105 H 129 H (70-99) Calcium 8.3 L (8.5-10.1) mg/dl Magnesium 2.4 (1.8-2.4) mg/dl 01/20/19 Range/Units 06:19 WBC 6.12 (4.8-10.8) K/uL RBC 3.50 L (4.7-6.1) M/uL Hgb 11.2 L (14.0-18.0) g/dL Hct 33.5 L (42-52) % MCV 95.7 (80-100) fL MCH 32.0 (25-34) pg MCHC 33.4 (32-36) g/dL RDW Std Deviation 48.0 H (36.4-46.3) fL RDW Coeff of Lin 13.7 (11.5-14.5) % Plt Count 251 (130-400) K/uL MPV 9.6 (7.4-10.4) fL Sodium (136-145) mmol/L Potassium (3.5-5.1) mmol/L Chloride (98-107) mmol/L Carbon Dioxide (21-32) mmol/L Anion Gap (3-11) BUN (7-18) mg/dl Creatinine (0.6-1.4) mg/dl Est Cr Clr Drug Dosing ml/min Est GFR ( Amer) Est GFR (Non-Af Amer) BUN/Creatinine Ratio (10-20) Glucose (70-99) mg/dl POC Glucose (70-99) Calcium (8.5-10.1) mg/dl Magnesium (1.8-2.4) mg/dl
[2019-01-20] MEDS: ATORVASTATIN 40 MG TAB PO SCH (19:03)
[2019-01-20] MEDS: METOPROLOL SUCC 25MG EXT REL TAB PO SCH (21:08)
[2019-01-21] MEDS: POLYETHYLENE (MIRALAX) 17 GM PACK PO SCH ×7 (00:46→08:25)
[2019-01-21] MEDS: TICAGRELOR 90 MG TAB PO SCH (08:24)
[2019-01-21] MEDS: ASPIRIN 81 MG ECTAB PO SCH (08:24)
[2019-01-21] MEDS: FUROSEMIDE 40 MG TAB PO SCH (08:24)
[2019-01-21] MEDS: MIRABEGRON ER 25 MG TAB PO SCH (08:24)
[2019-01-21] MEDS: DOCUSATE SODIUM 100 MG CAP PO SCH (08:25)
[2019-01-21] MEDS: ENOXAPARIN INJ 40 MG/0.4 ML SYR SQ SCH (08:25)
[2019-01-21] MEDS: SULFAMETHOXAZOLE/TRIMETHOPRIM DS 800/160MG TAB PO SCH (08:25)
[2019-01-21] MEDS ORDERED: MAGNESIUM CITRATE 296 ML/BTL PO STA (09:38)
[2019-01-21] MEDS ORDERED: HYDROCORTISONE ACETATE 25 MG SUPP PR PRN (09:47)
--- NOTE | 2019-01-21 14:44 | Discharge Summary ---
Date of Service January 21, 2019 Admission HPI Per Admitting Provider Mr. Myles is an 83 year old male with past medical history of Type 2 DM, HTN, HLD, Sleep Apnea, Carotid atherosclerosis, AAA s/p endovascular repair, bilateral iliac artery aneurysms, PAD s/p iliac stenting, pancreatic cyst, BPH, CAD s/p CABG x 4 vessels who presented with a left foot wound. Patient states he injured the lateral side of his left foot a few weeks ago. He had pain in his left heel for 1-2 weeks following injury; he completed exercises at home for treatment of plantar fasciitis. Pain progressed down his foot and was located on the left side of his foot near his left 5th toe over the last 1-2 weeks. He noticed discharge on his sock starting Tuesday01/12/2019. Pt. presented for a routine podiatry appointment today. A foreign body was removed from the left sided foot wound and cultures were obtained. He was instructed to go to [facility] for admission. He denies fever/chills, URI symptoms, chest pain, SOB, cough at home. Denies abdominal pain, N/V, diarrhea or constipation, dysuria or hematuria. Admission Exam Per Admitting Provider General: Resting comfortably in no apparent distress; A&OX3 HEENT: NC/AT; PERRLA with EOMI; [place] conjunctiva, MMM. Neck: Supple and nontender Cardiac: RRR w/o murmurs, gallops or rubs Lungs: CTA bilaterally; No rhonchi, wheezing, or rales Abdomen: Bowel normoactive X 4; Nontender to palpation Rectal: Deferred : Deferred Back: NO spinous tenderness Extremities: Warm. +1 non pitting bilat LE edema. Neuro: No focal weakness Skin: Small open area on lateral side of left foot near left 5th toe, no discharge noted on exam. Principal Diagnosis Left Foot Wound Discharge Exam General: Resting comfortably in no apparent distress; A&OX3 HEENT: NC/AT; PERRLA with EOMI; [place] conjunctiva, MMM. Neck: Supple and nontender Cardiac: +systolic murmur noted on exam. Lungs: CTA bilaterally; No rhonchi, wheezing, or rales Abdomen: Bowel normoactive X 4; Nontender to palpation GI: External hemorrhoid noted on exam; multiple internal hemorrhoids noted on rectal exam. Extremities: Warm. No LE edema noted. Neuro: No focal weakness Skin: Lesion on left foot with development of granular tissue, healing well. No discharge noted. Discharge Data Allergies Allergy/AdvReac Type Severity Reaction Status Date / Time bee venom protein (honey bee) Allergy SV ANAPHYLAXIS Verified 01/19/19 09:18 No Known Drug Allergies Allergy U . Verified 01/19/19 09:18 Consultations 01/16/19 10:59 Consult Podiatry Routine 01/17/19 08:14 Consult Vascular Surgery Routine Procedures Performed Operation Date: 01/19/19 08:50 Actual Procedures p Left Lower Extremity Arteriogram, Mechanical Closure of Left Femoral Artery. - Mansoor Angelo MD Ordered Studies Foot XR 01/15/19 01/16/19 11:00 US venous doppler LE LT Routine 01/16/19 11:29 CT foot LT w con Urgent 01/16/19 15:29 US arterial duplex LE BI Routine 01/17/19 08:57 CT angio abd aorta runof w con Routine 01/19/19 07:24 EV angio LE LT Routine 01/19/19 07:25 US guide vascular access Routine KUB 01/20/19 Hospital Course (1) PAD (peripheral artery disease): Arterial duplex showed extensive mural thrombus and distal L superficial femoral artery aneurysm. Follows with Dr. Baeza at [facility] -- most recent stenting was in 2015. Consulted Dr. Angelo from vascular at [facility], appreciate input. Arteriogram completed on 01/19/19 -- will need to follow up at [facility] for further evaluation on Tuesday. Continued cardiac meds as prescribed. (2) Iliac artery aneurysm: S/p repair in 2016 at [facility] with Dr. Baeza. (3) Constipation: Pt had constipation unresponsive to Mag citrate, lactulose, miralax and stool softeners. He received an enema followed by Miralax q1hr starting 01/20/19. Pt. was having large liquid BMs on 01/21/19. Instructed to contiue Miralax daily and Senna daily to prevent further constipation in the setting of hemorrhoids. (4) Hemorrhoid: Pt. has both external and internal hemorrhoids -- anusol suppository was administered on 01/21/19. Will continue suppositories QID for a 7 day course. Instructed to also take laxatives/softeners to prevent constipation. (5) Wound of left foot: Presented with left foot wound following podiatry appointment with removal of foreign body. Wound culture +Coag negative Staph; blood cultures negative. Foot XR: no evidence of osteomyelitis; posttraumatic deformity of fifth metatarsal. CT of left foot was negative. Initially placed on Zosyn/Vanco at admission; converted to Bactrim PO following wound culture results. Consulted podiatry, did not recommend surgical intervention. Santyl was applied followed by wet to dry dressing -- will need to be changed daily. PT did not recommend ongoing therapy. (6) Type II diabetes mellitus: Held home Metformin and Glimepiride. Initially placed on SSI but BG remained stable. SSI was discontinued. Hemoglobin A1C was 6.1. Will resume home meds at discharge and monitor BG at least once daily. (7) Hypertension: Continued home Metoprolol and Lasix as prescribed. (8) Hyperlipidemia: Continued statin as prescribed. (9) Sleep apnea: BiPAP via respiratory therapy (uses at home) (10) Coronary artery disease: S/p CABG x 4 vessels in February 2018 and stent placement x 2 in 2004. Follows with cardiology; EKG with no acute changes. Continued home Aspirin, Atorvastatin, Metoprolol; resumed Brilinta on 01/20/19. No indication for cardiology consult. (11) AAA (abdominal aortic aneurysm): S/p endovascular repair. (12) Pancreatic cyst: Monitored as outpatient. (13) BPH (benign prostatic hyperplasia): Will monitor. (14) Urinary incontinence: Continued Myrbetriq and Toviaz as prescribed. (15) Chronic diastolic heart failure: Most recent TTE in January 2018 showed EF 57%, mild LVH, well preserved systolic function, diastolic abnormality. Monitored intake/output and daily weights. Continued Metoprolol and Lasix as prescribed. (16) Leg edema: Doppler of LLE was negative for DVT. Continued home Lasix PO. (17) DVT prophylaxis: Lovenox and SCDs. Pt. was stable for discharge to home on 01/21/19. Total Time Total Time Spent Total Time Spent (In Minutes): >30 minutes Discharge Plan Discharge Items Patient Disposition: Home - Self-Care Reason For Visit: CELLULITIS Discharge Diagnosis: Cellulitis of Left Foot, Peripheral Arterial Disease Condition: Good Discharge Goals: Decrease discomfort, Diagnostic testing, Improve disease control, Improve function, Increase independence, Improve nutritional status, Prevent disease and Therapeutic intervention Activity: As commented below Exercise/Sports: Gradually increase as tolerated Non-emergency contact: Primary Care Provider Call non-emergency contact if: you have any medication questions, your symptoms worsen, your pain is not controlled, your pain is worsening, your pain is unusual for you, your pain is concerning for you, you have a fever, your wound has increased redness, your wound has increased drainage and your wound pain has increased Follow-up/Referrals: Myrna Herr, [Primary Care Provider] - Diet: Carb Consistent or DM2 and Heart Healthy Addtl Provider Instructions: 1. Wound of left foot/cellulitis * Please continue Bactrim twice daily for treatment of cellulitis. * Prescription for Bactrim was sent to your pharmacy. * Please continue dressing changes with Santyl followed by wet-to-dry dressing. Dressing can be changed daily. * Home nursing has been arranged for dressing changes and medication management. * Please schedule a follow up with podiatry in 1 week following discharge -- you can contact their office to schedule an appt at [phone]. 2. Peripheral arterial disease * Please follow up at [facility] as scheduled on Tuesday01/22/2019. 3. Type II Diabetes Mellitus * Please continue home Metformin and Glimepiride as prescribed. * Continue to monitor blood glucose levels at least once daily and record all readings. * You will need to follow up with your primary care provider in 1-2 weeks to discuss this hospital admission and diabetic management. 4. Constipation/Hemorrhoids * Please continue over the counter Miralax once daily and Senna 1 tablet daily to prevent constipation. * Please use Anusol suppository four times daily for external/internal hemorrhoids. Prescription for suppository was sent to your pharmacy. 5. Home nursing has been arranged for cardiopulmonary assessment, medication management and dressing changes. 6. Please schedule a follow up with your primary care provider in 1-2 weeks to discuss this hospital admission. 7. Please call your primary care provider or go to the ER if you develop the following: * Chest pain or shortness of breath. * Nausea/vomiting, severe watery diarrhea or abdominal pain. Prescriptions: New sulfamethoxazole-trimethoprim 800-160 mg Tablet 1 tab PO Q12 3 Days Qty: 6 RF: 0 Santyl 250 unit/gram Ointment 1 units EXT DAILY PRN (Reason: foot wound ) Qty: 30 RF: 0 Senna-Extra 17.2 mg tablet 17.2 mg PO DAILY Qty: 1 RF: 0 hydrocortisone acetate [Anusol-HC] 25 mg suppository 25 mg MA QID 7 Days Qty: 24 RF: 0 polyethylene glycol 3350 [Miralax] 17 gram powder in packet 17 gm PO DAILY Qty: 1 RF: 0 Continued BIMATOPROST (LUMIGAN) 0.01 % SOLTAB 1 drp OPL HS Qty: 0 RF: 0 B-COMPLEX VITAMINS (VITAMIN B COMPLEX) 1 TAB tablet 1 tab PO QAM Qty: 0 RF: 0 MULTIPLE VITAMIN (MULTIVITAMIN) 1 TAB tablet 1 tab PO QAM Qty: 0 RF: 0 EPINEPHRINE (EPIPEN) 0.3 MG/0.3 ML INJECTION 0.3 mg IM UD PRN (Reason: BEE STING) Qty: 0 RF: 0 Nitroglycerin (Nitrostat) 0.4 MG tablet 0.4 mg UT PRN PRN (Reason: CHEST PAIN) Qty: 0 RF: 0 Saccharomyces Boulardii (Probiotic) 250 MG capsule 1 cap PO QAM Qty: 0 RF: 0 MIRABEGRON (MYRBETRIQ ER) 50 MG tablet 50 mg PO DAILY Qty: 0 RF: 0 ATORVASTATIN (LIPITOR) 40 MG tablet 40 mg PO DAILY Qty: 0 RF: 0 Famotidine (Pepcid) 20 MG tablet 20 mg PO Q12 Qty: 0 RF: 0 Furosemide (Lasix) 40 MG tablet 40 mg PO DAILY Qty: 0 RF: 0 METFORMIN HCL (GLUCOPHAGE) 850 MG tablet 850 mg PO BIDM Qty: 0 RF: 0 Metoprolol Tartrate (Lopressor) (Lopressor) 25 MG tablet 12.5 mg PO HS Qty: 0 RF: 0 TICAGRELOR (BRILINTA) 90 MG tablet 90 mg PO BID Qty: 0 RF: 0 Toviaz 4 mg tablet extended release 24 hr 4 mg PO DAILY RF: 0 glimepiride 1 mg tablet 1 mg PO QAM RF: 0 Changed ASPIRIN (ASPIRIN 81) 81 MG tablet 81 mg PO DAILY Qty: 0 RF: 0 Discontinued Oxycodone Ir (Roxicodone Ir) 5 MG tablet 5 mg PO Q6H PRN (Reason: Pain) Qty: 0 RF: 0 Potassium Chloride (Micro-K Ext Rel) 10 MEQ CONTR REL CAP 20 meq PO DAILY Qty: 0 RF: 0 iron, carbonyl [Feosol] 45 mg Tablet 45 mg PO DAILY RF: 0 Stand-Alone Forms: [facility], Opioid Pain Management Discharge Orders: Discharge Order (Routine); Ordered 01/21/19 Ordered By: Erika Rodriguez Admission Data Admit Date/Time: 01/15/19 15:50 Attending Provider: Syed Laguerre Admit Provider: rFanny Paez Primary Care Provider: Myrna Herr Other Providers: Abisai Roberts Eugene J Service: Medical Other Interventions: Discharge Summary Assessment (RN) Last Done: 01/21/19 14:54 Pending Studies at Discharge: Yes Studies:: Blood cultures 01/15/19: negative to date DC Date/Time DO NOT enter until pt leaves facility: 01/21/19 17:00 Supervising Physician Co-Signing Physician Notes Attending Attestation and Discharge note: Pt seen/examined, chart reviewed in detail, discharge care plan d/w PA Erika Rodriguez. I agree w/ the reynolds components of her discharge documentation. 83yo male with numerous medical problems that was admitted due to left foot wound. Seen by vascular surgery and podiatry, treated with IV/PO antibiotics, and underwent arteriogram of LLE by Dr. Angelo. 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 Dr. Angelo advised f/u with [facility] as soon as possible. Clinical course complicated by severe constipation and hemorrhoids both of which improved with time. Discharge exam: gen - NAD, a/o x 3 mouth - MMM neck - no JVD heart - RRR, s1, s2 lungs - CTA b/l abd - soft, NT, ND, BS+ rectal - external hemorrhoid present - not thrombosed ext - no edema skin - left foot 5th metatarsal ulceration - plantar aspect; no significant drainage Patient to f/u with vascular at [facility] 24 hours post-d/c. Bowel regimen at d/c. Anusol for hemorrhoids. Syed Laguerre MD
== END 2019-01-21 17:00 | disposition home or self-care (01) | DRG 253 ==
LOC: SUATTDRO 15:50 → 3W 15:50

== ENCOUNTER 2022-05-20 13:57 | Observation (INO) ==
--- NOTE | 2022-05-20 14:50 | XRay Report ---
XR chest 2V PA/lateral CLINICAL HISTORY: Sepsis. COMPARISON STUDY: Chest radiograph and chest CT February 17, 2018. FINDINGS: There are median sternotomy wires and mediastinal surgical clips. Cardiomediastinal silhoue tte is stable. No pneumothorax or pleural effusion is present. No consolidation is identified. No darcy dence for pulmonary edema. IMPRESSION: No acute cardiopulmonary findings. ACT 112: Negative or not required by law. Electronically signed by: Pascual May M.D. 05/20/2022 2:49 PM
[2022-05-20 15:35] LABS: Basophils # (auto) 0.07 K/uL (0-0.2); Basophils % (auto) 0.6 %; Eosinophils # (auto) 0.09 K/uL (0-0.50); Eosinophils % (auto) 0.8 %; Hematocrit (blood only) 42.3 % (40.1-51.0); Hemoglobin 14.1 g/dl (14.0-18.0); Immature Granulocytes # (auto) 0.04 K/uL (0.00-0.02); Immature Granulocytes % (auto) 0.4 %; Lymphocytes # (auto) 1.24 K/uL (1.2-3.4); Lymphocytes % (auto) 11.2 %; Mean Corpuscular Hemoglobin 31.5 pg (25.0-34.0); Mean Corpuscular Hgb Conc 33.3 g/dL (32.0-36.0); Mean Corpuscular Volume 94.4 fL (80.0-100.0); Mean Platelet Volume 9.6 fL (9.4-12.4); Monocytes # (auto) 0.65 K/uL (0.24-0.82); Monocytes % (auto) 5.9 %; Neutrophils # (auto) 9.01 K/uL (1.4-6.5); Neutrophils % (auto) 81.1 %; Platelet Count 273 K/uL (130-400); RDW Coefficient of Variation 13.6 % (11.5-14.5); RDW Standard Deviation 46.9 fL (36.4-46.3); Red Blood Count 4.48 M/uL (4.63-6.08)
[2022-05-20 15:46] LABS: Partial Thromboplastin Ratio 0.9; Partial Thromboplastin Time 25.7 Seconds (21.0-31.0); Prothrombin Time 10.9 Seconds (9.0-12.0)
[2022-05-20] MEDS ORDERED: ceFAZolin 2000MG 2,000 MG/15 ML SYR IV STA (15:50)
[2022-05-20] MEDS ORDERED: SODIUM CHLORIDE 0.9% 1000ML 500 ML IV ONE (15:50)
[2022-05-20 16:06] LABS: Albumin Globulin Ratio 1.5 (0.9-2); Albumin Level 4.2 gm/dl (3.4-5.0); BUN Creatinine Ratio 25.9 (10-20); Bilirubin,Total 0.5 mg/dl (0.2-1.0); Calcium 9.5 mg/dl (8.5-10.1); Creatinine Clr Calc Pharmacy 52.1 ml/min; Est GFR (African American) 71.1 ml/min; Est GFR (Non-African American) 61.4 ml/min; Globulin 2.8 gm/dl (2.5-4.0); Potassium 4.5 mmol/L (3.5-5.1)
--- NOTE | 2022-05-20 16:20 | Emergency Department Note ---
Impression & Plan Weakness, Dysuria, Leukocytosis, Acute UTI, Failure of outpatient treatment ED Provider Note NAME: JESSE CREWS AGE: 87 SEX: M : 1935 ARRIVES VIA: Walk-In INFORMANT: [Patient] ED PROVIDER(S): [Kannan Weston MD] CHIEF COMPLAINT: Dr. Referred HISTORY OF PRESENT ILLNESS: The patient is an 87-year-old male who was referred by his doctors office. At the office, his blood pressure was low, his heart rate was quick. The patient has been tired and weak. The patient has had over a week of urinary symptoms. He has had dark urine, cloudy urine and some pain with urination as well as some frequency and urgency. He was on 1 week of Macrobid without any improvement. He was referred for a hospital stay and IV antibiotic therapy. The patient denies any cough or congestion or shortness of breath. He has not vomited, no fever. He has no flank pain. Note, his urine culture from early May grew out a sensitive staph aureus. REVIEW OF SYSTEMS: See HPI for pertinent positives and negatives. A total of ten systems were rev iewed and were otherwise negative. PMHx/PSHx: See Below SOCIAL HISTORY: See Below. PHYSICAL EXAM: GENERAL: Patient is in no acute distress. HEENT: No acute trauma, normocephalic atraumatic, mucous membranes moist, no nasal congestion, no scleral icterus. NECK: No stridor, no adenopathy, no meningismus, trachea is midline. LUNGS: Clear to auscultation bilaterally, no wheeze, no rhonchi, breath sounds equal. HEART: Subtle systolic murmur, regular rate and rhythm. ABDOMEN: Soft, nontender, bowel sounds positive, no peritonitis. EXTREMITIES: No cyanosis or edema, full range of motion of all the joints without pain or difficulty, no signs for acute trauma. NEUROLOGIC: Oriented x 3, no acute motor or sensory deficits, no focal weakness. SKIN: No rash, no jaundice, no diaphoresis. Back: No flank discomfort to percussion. DIFFERENTIAL DIAGNOSIS: Sepsis, bacteremia, renal failure, hydronephrosis, prostatitis, urinary retention, electrolyte imbalance, failed outpatient management, dehydration, among others. EMERGENCY DEPARTMENT COURSE/PROCEDURES: ECG: Indication was possible sepsis. The ECG shows a sinus rhythm with a first-degree AV block. There is a right bundle branch block. The rate is 62. There is no ST elevation, no PVCs. The QTc is 442 Continuous Cardiac Monitoring: An order was placed for continuous cardiac monitoring. The monitor shows a rate of 87 with sinus rhythm with a first review block. MEDICAL DECISION MAKING: There is a mild leukocytosis which would be consistent with infection. There is a normal hemoglobin and platelet count. No coagulopathy. No renal failure. No concerning electrolyte abnormality. Lactic acid level is not elevated making severe sepsis less likely. No worrisome liver enzyme elevation. Procalcitonin level was not elevated. Urinalysis is consistent with infection. COVID test returned negative. Abdominal and pelvis CT did not show acute surgical pathology, no hydronephrosis. Chest x-ray did not show pneumonia or pneumothorax. No CHF The patient received IV saline and IV Ancef. Ancef should be excellent coverage for his methicillin sensitive staph aureus urinary culture result. Given the outpatient treatment failure, given the persistent UTI, his weakness and age, I do think a hospital stay would be warranted. He requires IV antibiotic therapy. I did speak with the patient and case management. The on-call hospitalist was consulted. 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) Foot ulcer due to secondary DM Glaucoma Hypertension Iliac artery aneurysm, bilateral Kidney disease MCI (mild cognitive impairment) Osteoarthritis PAD (peripheral artery disease) Pancreatic cyst Type II diabetes mellitus Urinary incontinence Urinary urgency Surgical History History of lumbar laminectomy History of repair of aneurysm of abdominal aorta using endovascular stent graft S/P angioplasty (03/2021) LLE 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) S/P femoral-popliteal bypass surgery (01/2019) L common femoral artery to peroneal artery vein bypass S/P foot surgery, left 2020 S/P insertion of iliac artery stent (12/2015) b/l common iliac artery S/P TURP (2016) Family History Father , 74 BPH (benign prostatic hyperplasia) [employer] workers pneumoconiosis Patient's father is Lung disease Mother Heart disease Acute myocardial infarction Stroke syndrome Myocardial infarction Other Coronary heart disease Denies family history of Ovarian cancer Prostate cancer Breast cancer Colorectal cancer Social History Smoking Status: Former smoker Tobacco Type: Pipe Age Started Using Tobacco: 15; Age Quit Using Tobacco: 62; Second Hand Exposure: No; Hx Alcohol Use: Yes Alcohol type: wine Alcohol Intake Frequency: 2-4 x/Month Hx Substance Use: No Preferred Language: Azeri Communication Ability: Effective Visual Impairment: No Limitations Hearing Ability: Use of Hearing Aid Vibrator Operator Required: No Beliefs That Will Affect Care: Mormonism Mormonism Beliefs: Restorationism marital status: Current Living Situation: Alone current occupational status: retired 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 Feels Safe at Home: Yes Childhood Exposure to Second-Hand Smoke: No caffeine: No during the past year weight has: remained stable Dental Care, Regularly: Yes Physical Activity Frequency: Other Physical Activity Frequency Comment: has a foot problem cannot exercise Seatbelt Use: always Sunscreen Use: No Assistive Devices: Denture - Upper, Denture - Lower, Glasses, Hearing Aid - Bilateral and Special Shoe Allergies Allergies Allergy/AdvReac Type Severity Reaction Status Date / Time bee venom protein (honey bee) Allergy Severe ANAPHYLAXIS Verified 05/20/22 17:06 Home Meds Home Medications Medication Instructions Recorded Confirmed bisacodyl 10 mg rectal suppository 10 mg LA DAILY PRN Constipation 05/20/20 05/20/22 (Dulcolax (bisacodyl)) cranberry fruit 450 mg tablet 450 mg PO DAILY 08/21/20 05/20/22 sennosides 8.6 mg-docusate sodium 1 tab PO QPM 08/21/20 05/20/22 50 mg tablet (Senna with Docusate Sodium) aspirin 81 mg tablet,delayed 81 mg PO DAILY 08/25/20 05/20/22 release bimatoprost 0.01 % eye drops 1 drp ophthalmic (eye) DAILY 10/16/21 05/20/22 (Lumigan) mirabegron 50 mg tablet,extended 50 mg PO DAILY 02/18/22 05/20/22 release 24 hr (Myrbetriq) Previous Rx's Medication Instructions Recorded polyethylene glycol 3350 17 gram 17 gm PO DAILY #1 ea 01/21/19 oral powder packet (Miralax) Saccharomyces boulardii 250 mg 250 mg PO DAILY #90 caps 05/01/19 capsule (Florastor) ferrous sulfate 325 mg (65 mg 325 mg PO DAILY #90 tabs 05/01/19 iron) tablet multivitamin (Daily Multi-Vitamin 1 tab PO DAILY #90 tabs 05/01/19 tablet) vitamin B complex (B 1 tab PO DAILY #90 tabs 05/01/19 Complex-Vitamin B12 tablet) blood-glucose meter #1 ea 10/13/20 glimepiride 1 mg tablet 0.5 mg PO QAM #90 tabs 07/06/21 nitroglycerin 0.4 mg sublingual 0.4 mg sublingual Q5M PRN chest 10/16/21 tablet (Nitrostat) pain #30 tabs blood sugar diagnostic (OneTouch #100 ea 12/24/21 Ultra Test strips) lancets 30 gauge (Ultra Thin #200 ea 12/24/21 Lancets) lancing device (Adjustable Lancing #1 ea 12/24/21 Device) metformin 850 mg tablet 850 mg PO BID #180 tabs 02/01/22 GRABBER TOOL #1 ea 02/18/22 epinephrine 0.3 mg/0.3 mL 0.3 mg (0.3 mL) IM Q10M PRN 02/18/22 injection, auto-injector (EpiPen anaphylaxis #2 ea 2-Shola) ticagrelor 90 mg tablet (Brilinta) 90 mg PO BID #180 tabs 03/15/22 atorvastatin 40 mg tablet 40 mg PO DAILY #90 tabs 03/18/22 bumetanide 1 mg tablet 1 mg PO DAILY #90 tabs 04/08/22 Results & Data (ED) Vital Signs Vital Signs - 24 hr 05/20/22 14:11 05/20/22 16:03 05/20/22 16:03 Temperature 37.0 C Temperature Source Temporal Artery Scan Pulse Rate 68 Pulse Rate [Right Finger] 87 Pulse Rhythm Regular Pulse Strength Normal Respiratory Rate 18 12 Respiratory Effort / Characteristics Non-Labored Spontaneous Respiratory Depth Normal Respiratory Pattern Regular Blood Pressure 131/77 Blood Pressure [Right Arm] 124/74 Blood Pressure Mean 95 Blood Pressure Mean [Right Arm] 90 Blood Pressure Position Sitting Pulse Oximetry 95 94 94 Oxygen Delivery Method Room Air Room Air Room Air Sepsis Recent Fever Within 48 Hours No Sepsis New/Unexplained Change in Mental Status No Sepsis Action Taken by Nursing No Action Required Home Medications Current Medication List: was personally reviewed by me Laboratory Data Attestation: I reviewed the patient's lab results. Result diagrams: 05/20/22 15:03 05/20/22 15:03 Lab Results 05/20/22 05/20/22 05/20/22 Range/Units 13:02 15:03 15:03 WBC 11.10 H (4.8-10.8) K/ul RBC 4.48 L (4.63-6.08) M/uL Hgb 14.1 (14.0-18.0) g/dl Hct 42.3 (40.1-51.0) % MCV 94.4 (80.0-100.0) fL MCH 31.5 (25.0-34.0) pg MCHC 33.3 (32.0-36.0) g/dL RDW Std Deviation 46.9 H (36.4-46.3) fL RDW Coeff of Lin 13.6 (11.5-14.5) % Plt Count 273 (130-400) K/uL MPV 9.6 (9.4-12.4) fL Immature Gran % (Auto) 0.4 % Neut % (Auto) 81.1 % Lymph % (Auto) 11.2 % [place] % (Auto) 5.9 % Eos % (Auto) 0.8 % Baso % (Auto) 0.6 % Neut # (Auto) 9.01 H (1.4-6.5) K/uL Lymph # (Auto) 1.24 (1.2-3.4) K/uL [place] # (Auto) 0.65 (0.24-0.82) K/uL Eos # (Auto) 0.09 (0-0.50) K/uL Baso # (Auto) 0.07 (0-0.2) K/uL Immature Gran # (Auto) 0.04 H (0.00-0.02) K/uL PT 10.9 (9.0-12.0) Seconds INR 1.0 (0.9-1.1) APTT 25.7 (21.0-31.0) Seconds PTT Ratio 0.9 Sodium (136-145) mmol/L Potassium (3.5-5.1) mmol/L Chloride (98-107) mmol/L Carbon Dioxide (21-32) mmol/L Anion Gap (3-11) BUN (6-23) mg/dl Creatinine (0.6-1.4) mg/dl Est Cr Clr Drug Dosing ml/min Est GFR ( Amer) ml/min Est GFR (Non-Af Amer) ml/min BUN/Creatinine Ratio (10-20) Glucose (70-99(Fasting)) mg/dl Lactate (0.4-2.0) mmol/L Calcium (8.5-10.1) mg/dl Magnesium (1.7-2.4) mg/dl Total Bilirubin (0.2-1.0) mg/dl AST (13-39) U/L ALT (7-52) U/L Alkaline Phosphatase (34-104) U/L Total Protein (6.0-8.3) gm/dl Albumin (3.4-5.0) gm/dl Globulin (2.5-4.0) gm/dl Albumin/Globulin Ratio (0.9-2) Procalcitonin (0-0.5) ng/ml Urine Color Urine Appearance (Clear) Urine pH (4.5-7.5) Ur Specific [place] (1.000-1.030) Urine Protein (Negative) Urine Glucose (UA) (Negative) Urine Ketones (Negative) Urine Blood (Negative) Urine Nitrite (Negative) Urine Bilirubin (Negative) Urine Urobilinogen (Negative) Ur Leukocyte Esterase (Negative) Urine WBC (Auto) (0-5) /hpf Urine RBC (Auto) (0-4) /hpf U Hyaline Cast (Auto) (0-5) /lpf U Epithel Cells (Auto) (0-5) /lpf Urine Bacteria (Auto) (Negative) SARS-CoV-2, RNA, NAAT NEGATIVE (NEGATIVE) 05/20/22 05/20/22 05/20/22 Range/Units 15:03 15:03 16:04 WBC (4.8-10.8) K/ul RBC (4.63-6.08) M/uL Hgb (14.0-18.0) g/dl Hct (40.1-51.0) % MCV (80.0-100.0) fL MCH (25.0-34.0) pg MCHC (32.0-36.0) g/dL RDW Std Deviation (36.4-46.3) fL RDW Coeff of Lin (11.5-14.5) % Plt Count (130-400) K/uL MPV (9.4-12.4) fL Immature Gran % (Auto) % Neut % (Auto) % Lymph % (Auto) % [place] % (Auto) % Eos % (Auto) % Baso % (Auto) % Neut # (Auto) (1.4-6.5) K/uL Lymph # (Auto) (1.2-3.4) K/uL [place] # (Auto) (0.24-0.82) K/uL Eos # (Auto) (0-0.50) K/uL Baso # (Auto) (0-0.2) K/uL Immature Gran # (Auto) (0.00-0.02) K/uL PT (9.0-12.0) Seconds INR (0.9-1.1) APTT (21.0-31.0) Seconds PTT Ratio Sodium 140 (136-145) mmol/L Potassium 4.5 (3.5-5.1) mmol/L Chloride 106 (98-107) mmol/L Carbon Dioxide 27 (21-32) mmol/L Anion Gap 7 (3-11) BUN 28 H (6-23) mg/dl Creatinine 1.08 (0.6-1.4) mg/dl Est Cr Clr Drug Dosing 52.1 ml/min Est GFR ( Amer) 71.1 ml/min Est GFR (Non-Af Amer) 61.4 ml/min BUN/Creatinine Ratio 25.9 H (10-20) Glucose 100 H (70-99(Fasting)) mg/dl Lactate (0.4-2.0) mmol/L Calcium 9.5 (8.5-10.1) mg/dl Magnesium 2.0 (1.7-2.4) mg/dl Total Bilirubin 0.5 (0.2-1.0) mg/dl AST 21 (13-39) U/L ALT 21 (7-52) U/L Alkaline Phosphatase 84 (34-104) U/L Total Protein 7.0 (6.0-8.3) gm/dl Albumin 4.2 (3.4-5.0) gm/dl Globulin 2.8 (2.5-4.0) gm/dl Albumin/Globulin Ratio 1.5 (0.9-2) Procalcitonin 0.07 (0-0.5) ng/ml Urine Color Dark Yellow Urine Appearance Turbid A (Clear) Urine pH 7.0 (4.5-7.5) Ur Specific [place] 1.019 (1.000-1.030) Urine Protein 2+ H (Negative) Urine Glucose (UA) Negative (Negative) Urine Ketones Negative (Negative) Urine Blood 1+ H (Negative) Urine Nitrite Positive A (Negative) Urine Bilirubin Negative (Negative) Urine Urobilinogen Negative (Negative) Ur Leukocyte Esterase 3+ H (Negative) Urine WBC (Auto) >30 H (0-5) /hpf Urine RBC (Auto) 10-30 H (0-4) /hpf U Hyaline Cast (Auto) 1-5 (0-5) /lpf U Epithel Cells (Auto) 5-10 H (0-5) /lpf Urine Bacteria (Auto) 2+ H (Negative) SARS-CoV-2, RNA, NAAT (NEGATIVE) 05/20/22 Range/Units 16:30 WBC (4.8-10.8) K/ul RBC (4.63-6.08) M/uL Hgb (14.0-18.0) g/dl Hct (40.1-51.0) % MCV (80.0-100.0) fL MCH (25.0-34.0) pg MCHC (32.0-36.0) g/dL RDW Std Deviation (36.4-46.3) fL RDW Coeff of Lin (11.5-14.5) % Plt Count (130-400) K/uL MPV (9.4-12.4) fL Immature Gran % (Auto) % Neut % (Auto) % Lymph % (Auto) % [place] % (Auto) % Eos % (Auto) % Baso % (Auto) % Neut # (Auto) (1.4-6.5) K/uL Lymph # (Auto) (1.2-3.4) K/uL [place] # (Auto) (0.24-0.82) K/uL Eos # (Auto) (0-0.50) K/uL Baso # (Auto) (0-0.2) K/uL Immature Gran # (Auto) (0.00-0.02) K/uL PT (9.0-12.0) Seconds INR (0.9-1.1) APTT (21.0-31.0) Seconds PTT Ratio Sodium (136-145) mmol/L Potassium (3.5-5.1) mmol/L Chloride (98-107) mmol/L Carbon Dioxide (21-32) mmol/L Anion Gap (3-11) BUN (6-23) mg/dl Creatinine (0.6-1.4) mg/dl Est Cr Clr Drug Dosing ml/min Est GFR ( Amer) ml/min Est GFR (Non-Af Amer) ml/min BUN/Creatinine Ratio (10-20) Glucose (70-99(Fasting)) mg/dl Lactate 1.4 (0.4-2.0) mmol/L Calcium (8.5-10.1) mg/dl Magnesium (1.7-2.4) mg/dl Total Bilirubin (0.2-1.0) mg/dl AST (13-39) U/L ALT (7-52) U/L Alkaline Phosphatase (34-104) U/L Total Protein (6.0-8.3) gm/dl Albumin (3.4-5.0) gm/dl Globulin (2.5-4.0) gm/dl Albumin/Globulin Ratio (0.9-2) Procalcitonin (0-0.5) ng/ml Urine Color Urine Appearance (Clear) Urine pH (4.5-7.5) Ur Specific [place] (1.000-1.030) Urine Protein (Negative) Urine Glucose (UA) (Negative) Urine Ketones (Negative) Urine Blood (Negative) Urine Nitrite (Negative) Urine Bilirubin (Negative) Urine Urobilinogen (Negative) Ur Leukocyte Esterase (Negative) Urine WBC (Auto) (0-5) /hpf Urine RBC (Auto) (0-4) /hpf U Hyaline Cast (Auto) (0-5) /lpf U Epithel Cells (Auto) (0-5) /lpf Urine Bacteria (Auto) (Negative) SARS-CoV-2, RNA, NAAT (NEGATIVE) Administered Medications Atorvastatin Calcium (Atorvastatin 40 Mg Tab) 40 mg PO QPM RAMÓN Stop: 06/19/22 20:59 Last Admin: 05/20/22 21:54 Dose: 40 mg Documented By: SS Heparin Sodium (Porcine) (Heparin Sod 5,000 Unit/0.5 Ml Vial) 5,000 units SQ Q12 RAMÓN Stop: 06/19/22 20:59 Last Admin: 05/20/22 21:59 Dose: 5,000 units Documented By: SS Ceftriaxone Sodium 2,000 mg/ (Dextrose) 70 mls @ 100 mls/hr IV DAILY [facility]; Protocol Stop: 05/30/22 17:29 Last Infusion: 05/20/22 18:32 Dose: 0 mls/hr Documented By: Admin: 05/20/22 17:41 Dose: 100 mls/hr Documented By: NATALIA Insulin Aspart (Insulin Aspart Per Unit) 0 units SC ACHS RAMÓN Stop: 06/19/22 20:59 Last Admin: 05/20/22 21:55 Dose: 5 units Documented By: JAYLON Co-signed By: OL Insulin Glargine (Lantus Per Unit Charge) 7 units SQ BID RAMÓN Stop: 06/19/22 20:59 Last Admin: 05/20/22 21:57 Dose: 7 units Documented By: SS Co-signed By: OL Ticagrelor (Ticagrelor 90 Mg Tab) 90 mg PO BID RAMÓN Stop: 06/19/22 20:59 Last Admin: 05/20/22 21:55 Dose: 90 mg Documented By: SS Discontinued Medications Cefazolin Sodium (Ancef 2000mg) 2,000 mg in 15 mls @ 3.75 mls/min IV NOW STA Stop: 05/20/22 15:53 Last Admin: 05/20/22 17:25 Dose: Not Given Documented By: NATALIA Sodium Chloride (Nss 1000ml) 500 mls @ 999 mls/hr IV .Q31M ONE Stop: 05/20/22 16:20 Last Infusion: 05/20/22 16:57 Dose: 0 mls/hr Documented By: Admin: 05/20/22 16:11 Dose: 999 mls/hr Documented By: ASW Imaging Data Radiologist's Impression: Chest X-Ray 05/20/22 14:16 XR chest 2V PA/lateral CLINICAL HISTORY: Sepsis. COMPARISON STUDY: Chest radiograph and chest CT February 17, 2018. FINDINGS: There are median sternotomy wires and mediastinal surgical clips. Cardiomediastinal silhouette is stable. No pneumothorax or pleural effusion is present. No consolidation is identified. No evidence for pulmonary edema. IMPRESSION: No acute cardiopulmonary findings. ACT 112: Negative or not required by law. Electronically signed by: Pascual May M.D. 05/20/2022 2:49 PM Abdomen/Pelvis CT 05/20/22 15:50 CT abd pelvis wo con CLINICAL HISTORY: poss hydro TECHNIQUE: Helical axial images of the abdomen and pelvis were obtained. Automated dose lowering techniques and/or adjustment according to patient size were utilized for this exam. This exam was performed without intravenous contrast. CT DOSE: 552.68 mGycm COMPARISON: None available at the time of this dictation. FINDINGS: Lower chest: No acute abnormality Liver: Unremarkable. No focal lesions are seen. Gallbladder and biliary tree: No calcified gallstones. Normal caliber wall. No intra- or extrahepatic biliary ductal dilation. 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 Spleen: Unremarkable. Adrenals: Unremarkable. Kidneys and ureters: Previously noted renal cysts are stable. 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 Reproductive organs: Prostatomegaly is seen. Bowel: Unremarkable. Lymph nodes Retroperitoneal: Unremarkable. Pelvic: Unremarkable. Mesenteric: Unremarkable. Peritoneum: Normal. Vessels: Atherosclerotic calcifications are seen. Aortobiiliac stent is seen. Abdominal wall: Unremarkable. Bones: Degenerative changes in the visualized spine. IMPRESSION: 1. No acute abnormality and in particular no evidence of hydronephrosis. 2. 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 ACT 112: Negative or not required by law. Electronically signed by: Abdiel Ames M.D. 05/20/2022 4:55 PM Discharge Plan Visit Data Chief Complaint: Referred by Doctor Stated Complaint: REF BY , UTI, SEPSIS ED Provider: Kannan Weston Discharge Problem: Weakness, Dysuria, Leukocytosis, Acute UTI, Failure of outpatient treatment Patient Disposition: Admitted As Inpatient Condition: Good Discharge Instructions Interventions: ED Discharge Assessment Last Done: 05/20/22 20:00
[2022-05-20 16:23] LABS: Appearance Urine Turbid (Clear); Bacteria Urine Automated 2+ (Negative); Bilirubin Urine Negative (Negative); Blood Urine 1+ (Negative); Color Urine Dark Yellow; Glucose Urine UA Negative (Negative); Ketones Urine Negative (Negative); Leukocyte Esterase Urine 3+ (Negative); Nitrite Urine Positive (Negative); Protein Urine 2+ (Negative); Specific Gravity Urine 1.019 (1.000-1.030); Urobilinogen Urine Negative (Negative); WBC Urine Automated >30 /hpf (0-5)
--- NOTE | 2022-05-20 16:35 | History & Physical Report ---
Date of Service May 20, 2022 Assessment & Plan (1) UTI (urinary tract infection): Plan: UTI, concern for sepsis criteria prior to ER At outpatient's office reportedly with sinus tachycardia to the 130s, hypotensive to the 80s. EKG not available in system for transmit/review. Sinus, regular rate on reeval Leukocytosis to 11.1 Creatinine 1.08 on admission, creatinine clearance 52 Avoid Macrobid given age and reduced creatinine clearance BUN/creatinine ratio elevated 25 No transaminitis Procalcitonin negative COVID-negative Repeat urine pending CTA/P: 1. No acute abnormality and in particular no evidence of hydronephrosis.2. 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 Rocephin pending cultures, initial culture was MSSA however this was a self brought in sample at a delay and nitrates are appreciated on UA. 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 #[phone]. DNI/DNR (2) AAA (abdominal aortic aneurysm): (3) Chronic diastolic heart failure: (4) Complex sleep apnea syndrome: (5) Constipation: (6) Coronary artery disease: (7) Diabetic neuropathy: (8) Dyslipidemia: (9) Hypertension: (10) PAD (peripheral artery disease): (11) S/P CABG x 4: History of Present Illness Primary Care Provider: Myrna Herr DO Rod Salgado is an 87-year-old male with a past medical history of diabetes with neuropathy, MCI, BPH with LUTS, AAA, renal disease, complex sleep apnea, chronic anemia, HLD, diastolic heart failure, PAD, and hypertension who has had 1 fall weakness, fatigue, and urinary frequency with urgency. He was diagnosed with a UTI by his PCP and was placed on Macrobid, did not improve. Culture grew out MSSA, urine is nitrite positive. 2 weeks dysuria, frequency, fatigue. Was seen in last [place], +macrobid for 7 days but did not help at all and continued to feel weak/fatigued. Had a PCP followup appointment yesterday, but delayed it bc he couldn't ge there prior ot the lab closing so came to the PCP today instead. Was found to be with low BP and recommended to come to the ER after multiple BPs <100 systolic and pulse was >130. Referred for sepsis. No chest pain or chest pressure. No shortness of breath. Has felt heart racing intermittently, no sx at time of admission. No Fevers/chills. No ab pain. No nausea/vomiting/diarrhea/constipation. No back pain No lightheadedness/dizziness. Medical History: Reviewed Medications: Reviewed. Surgical History: Reviewed Allergies: Reviewed. NKDA. Social History: No tobacco product use, former pipe smoker 30 years ago. Formerly glass of wine wih dinner, done recently since feeling ill. Code Status: Surrogate DM in an emegency would his son Husam Myles. #[phone]. DNI/DNR Allergies Allergy/AdvReac Type Severity Reaction Status Date / Time bee venom protein (honey bee) Allergy SV ANAPHYLAXIS Verified 05/20/22 10:59 No Known Drug Allergies Allergy U . Verified 05/20/22 10:59 venom-honey bee Allergy Verified 05/20/22 10:59 Home Medications Medication Instructions Recorded Confirmed Type polyethylene glycol 3350 17 gram 17 gm PO DAILY #1 ea 01/21/19 05/20/22 Rx oral powder packet (Miralax) Saccharomyces boulardii 250 mg 250 mg PO DAILY #90 caps 05/01/19 05/20/22 Rx capsule (Florastor) ferrous sulfate 325 mg (65 mg 325 mg PO DAILY #90 tabs 05/01/19 05/20/22 Rx iron) tablet multivitamin (Daily Multi-Vitamin 1 tab PO DAILY #90 tabs 05/01/19 05/20/22 Rx tablet) vitamin B complex (B 1 tab PO DAILY #90 tabs 05/01/19 05/20/22 Rx Complex-Vitamin B12 tablet) bisacodyl 10 mg rectal suppository 10 mg ID DAILY PRN 05/20/20 05/20/22 History (Dulcolax (bisacodyl)) cranberry fruit 450 mg tablet 450 mg PO DAILY 08/21/20 05/20/22 History sennosides 8.6 mg-docusate sodium 1 tab PO QPM 08/21/20 05/20/22 History 50 mg tablet (Senna with Docusate Sodium) aspirin 81 mg tablet,delayed 81 mg PO DAILY 08/25/20 05/20/22 History release blood-glucose meter #1 ea 10/13/20 05/20/22 Rx glimepiride 1 mg tablet 0.5 mg PO QAM #90 tabs 07/06/21 05/20/22 Rx bimatoprost 0.01 % eye drops 1 drp ophthalmic (eye) DAILY 10/16/21 05/20/22 History (Lumigan) nitroglycerin 0.4 mg sublingual 0.4 mg sublingual Q5M PRN chest 10/16/21 05/20/22 Rx tablet (Nitrostat) pain #30 tabs blood sugar diagnostic (OneTouch #100 ea 12/24/21 05/20/22 Rx Ultra Test strips) lancets 30 gauge (Ultra Thin #200 ea 12/24/21 05/20/22 Rx Lancets) lancing device (Adjustable Lancing #1 ea 12/24/21 05/20/22 Rx Device) metformin 850 mg tablet 850 mg PO BID #180 tabs 02/01/22 05/20/22 Rx GRABBER TOOL #1 ea 02/18/22 05/20/22 Rx doxycycline hyclate 100 mg capsule 200 mg PO ONCE #10 caps 02/18/22 05/20/22 Rx epinephrine 0.3 mg/0.3 mL 0.3 mg (0.3 mL) IM Q10M PRN 02/18/22 05/20/22 Rx injection, auto-injector (EpiPen anaphylaxis #2 ea 2-Shola) mirabegron 50 mg tablet,extended 50 mg PO DAILY 02/18/22 05/20/22 History release 24 hr (Myrbetriq) ticagrelor 90 mg tablet (Brilinta) 90 mg PO BID #180 tabs 03/15/22 05/20/22 Rx atorvastatin 40 mg tablet 40 mg PO DAILY #90 tabs 03/18/22 05/20/22 Rx bumetanide 1 mg tablet 1 mg PO DAILY #90 tabs 04/08/22 05/20/22 Rx 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) Foot ulcer due to secondary DM Glaucoma Hypertension Iliac artery aneurysm, bilateral Kidney disease MCI (mild cognitive impairment) Osteoarthritis PAD (peripheral artery disease) Pancreatic cyst Type II diabetes mellitus Urinary incontinence Urinary urgency Surgical History History of lumbar laminectomy History of repair of aneurysm of abdominal aorta using endovascular stent graft S/P angioplasty (03/2021) LLE 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) S/P femoral-popliteal bypass surgery (01/2019) L common femoral artery to peroneal artery vein bypass S/P foot surgery, left 2020 S/P insertion of iliac artery stent (12/2015) b/l common iliac artery S/P TURP (2016) Family History Father , 74 BPH (benign prostatic hyperplasia) Woods workers pneumoconiosis Patient's father is Lung disease Mother Heart disease Acute myocardial infarction Stroke syndrome Myocardial infarction Other Coronary heart disease Denies family history of Ovarian cancer Prostate cancer Breast cancer Colorectal cancer Social History Smoking Status: Former smoker Tobacco Type: Pipe Age Started Using Tobacco: 15; Age Quit Using Tobacco: 62; Second Hand Exposure: No; Hx Alcohol Use: Yes Alcohol type: wine Alcohol Intake Frequency: 2-4 x/Month Hx Substance Use: No Preferred Language: Kyrgyz Communication Ability: Effective Visual Impairment: No Limitations Hearing Ability: Use of Hearing Aid Dock Boss Required: No Beliefs That Will Affect Care: Christianity Christianity Beliefs: Restorationism marital status: Current Living Situation: Alone current occupational status: retired 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 Feels Safe at Home: Yes Childhood Exposure to Second-Hand Smoke: No caffeine: No during the past year weight has: remained stable Dental Care, Regularly: Yes Physical Activity Frequency: Other Physical Activity Frequency Comment: has a foot problem cannot exercise Seatbelt Use: always Sunscreen Use: No Assistive Devices: Denture - Upper, Denture - Lower, Glasses, Hearing Aid - Bilateral and Special Shoe Review of Systems Review of Systems: All systems reviewed & are unremarkable except as noted in Subjective Physical Exam Physical Exam: General: A&Ox3. NAD. Cooperative. HEENT: Atraumatic, normocephalic. Vision/hearing grossly intact with hearing aid. [place]. Pulm: CTAB A&P. -wheezes, -rales, -rhonchi. Symmetrical chest rise. No increased work of breathing. No respiratory distress. Cardiac: RRR, -mrg. Radial pulses intact and symmetrical. Abdominal: Nontender, nondistended, soft. BS present. Ext: Warm, dry, no edema Results & Data Results & Data ([facility]) Vital Signs (Past 12 Hours) Vital Signs Temp Pulse Pulse Resp BP BP Pulse Ox 05/20/22 16:03 94 05/20/22 16:03 87 12 124/74 94 05/20/22 14:11 37.0 C 68 18 131/77 95 O2 Del Method 05/20/22 16:03 Room Air 05/20/22 16:03 Room Air 05/20/22 14:11 Room Air PG Care Time/CCT Total # of Minutes Spent Total Time Spent with Patient: Total time spent is greater than 50% in coordination of care (as documented) at patient's floor/unit and/or counseling patient: Coding Level of Care Code INT OBSERVATION CARE 50M LVL 2 Diagnoses UTI (urinary tract infection) N39.0 AAA (abdominal aortic aneurysm) I71.4 Chronic diastolic heart failure I50.32 Complex sleep apnea syndrome G47.31 Constipation K59.00 Coronary artery disease I25.10 Diabetic neuropathy E11.40 Dyslipidemia E78.5 Hypertension I10 PAD (peripheral artery disease) I73.9 S/P CABG x 4 Z95.1
--- NOTE | 2022-05-20 16:57 | CT Scan Report ---
CT abd pelvis wo con CLINICAL HISTORY: poss hydro TECHNIQUE: Helical axial images of the abdomen and pelvis were obtained. Automated dose lowering tech niques and/or adjustment according to patient size were utilized for this exam. This exam was perfor med without intravenous contrast. CT DOSE: 552.68 mGycm COMPARISON: None available at the time of this dictation. FINDINGS: Lower chest: No acute abnormality Liver: Unremarkable. No focal lesions are seen. Gallbladder and biliary tree: No calcified gallstones. Normal caliber wall. No intra- or extrahepatic biliary ductal dilation. 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 Spleen: Unremarkable. Adrenals: Unremarkable. Kidneys and ureters: Previously noted renal cysts are stable. 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 Reproductive organs: Prostatomegaly is seen. Bowel: Unremarkable. Lymph nodes Retroperitoneal: Unremarkable. Pelvic: Unremarkable. Mesenteric: Unremarkable. Peritoneum: Normal. Vessels: Atherosclerotic calcifications are seen. Aortobiiliac stent is seen. Abdominal wall: Unremarkable. Bones: Degenerative changes in the visualized spine. IMPRESSION: 1. No acute abnormality and in particular no evidence of hydronephrosis. 2. 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 ACT 112: Negative or not required by law. Electronically signed by: Abdiel Ames M.D. 05/20/2022 4:55 PM
[2022-05-20] MEDS ORDERED: GLUCAGON FOR INJ 1 MG VIAL SQ PRN (17:06)
[2022-05-20] MEDS ORDERED: CARBOHYDRATES FOR HYPOGLYCEMIA PO PRN (17:06)
[2022-05-20] MEDS ORDERED: GLUCOSE 10 TAB/TUBE PO PRN (17:06)
[2022-05-20] MEDS ORDERED: GLUCOSE 40% GEL 15 GM TUBE PO PRN (17:06)
[2022-05-20] MEDS ORDERED: DEXTROSE 50% 50 ML SYRINGE IV PRN (17:06)
[2022-05-20] MEDS: cefTRIAXone SODIUM 2,000 MG in DEXTROSE 5% 50 ML IV SCH (17:41)
[2022-05-20] MEDS ORDERED: NITROGLYCERIN SL 0.4 MG/TAB TAB SL PRN (19:16)
[2022-05-20] MEDS ORDERED: POLYETHYLENE (MIRALAX) 17 GM PACK PO PRN (19:16)
[2022-05-20] MEDS ORDERED: ACETAMINOPHEN 325 MG TAB PO PRN (19:16)
[2022-05-20] MEDS ORDERED: Nursing to Pharmacy Communication SCH (21:30)
[2022-05-20] MEDS: ATORVASTATIN 40 MG TAB PO SCH (21:54)
[2022-05-20] MEDS: TICAGRELOR 90 MG TAB PO SCH (21:55)
[2022-05-20] MEDS: INSULIN ASPART PER UNIT SC SCH (21:55)
[2022-05-20] MEDS: LANTUS PER UNIT CHARGE SQ SCH (21:57)
[2022-05-20] MEDS: HEPARIN SOD 5,000 UNIT/0.5 ML VIAL SQ SCH (21:59)
[2022-05-21] MEDS: INSULIN ASPART PER UNIT SC SCH ×4 (08:26→20:19)
[2022-05-21] MEDS: cefTRIAXone SODIUM 2,000 MG in DEXTROSE 5% 50 ML IV SCH (08:28)
[2022-05-21] MEDS: LANTUS PER UNIT CHARGE SQ SCH ×2 (08:33→20:31)
[2022-05-21] MEDS ORDERED: ATORVASTATIN 40 MG TAB PO SCH (09:00)
[2022-05-21] MEDS: MIRABEGRON ER 25 MG TAB PO SCH (09:33)
[2022-05-21] MEDS: TICAGRELOR 90 MG TAB PO SCH ×2 (09:33→20:34)
[2022-05-21] MEDS: HEPARIN SOD 5,000 UNIT/0.5 ML VIAL SQ SCH ×2 (09:33→20:34)
[2022-05-21] MEDS: FERROUS SULFATE 325 MG TAB PO SCH (09:33)
[2022-05-21] MEDS: ASPIRIN 81 MG ECTAB PO SCH (09:33)
[2022-05-21 09:48] LABS: Basophils # (auto) 0.05 K/uL (0-0.2); Basophils % (auto) 0.6 %; Eosinophils # (auto) 0.14 K/uL (0-0.50); Eosinophils % (auto) 1.7 %; Hematocrit (blood only) 37.5 % (40.1-51.0); Hemoglobin 12.7 g/dl (14.0-18.0); Immature Granulocytes # (auto) 0.02 K/uL (0.00-0.02); Immature Granulocytes % (auto) 0.2 %; Lymphocytes # (auto) 1.25 K/uL (1.2-3.4); Lymphocytes % (auto) 15.5 %; Mean Corpuscular Hemoglobin 32.2 pg (25.0-34.0); Mean Corpuscular Hgb Conc 33.9 g/dL (32.0-36.0); Mean Corpuscular Volume 94.9 fL (80.0-100.0); Mean Platelet Volume 9.7 fL (9.4-12.4); Monocytes # (auto) 0.44 K/uL (0.24-0.82); Monocytes % (auto) 5.5 %; Neutrophils # (auto) 6.14 K/uL (1.4-6.5); Neutrophils % (auto) 76.5 %; Platelet Count 233 K/uL (130-400); RDW Coefficient of Variation 13.3 % (11.5-14.5); RDW Standard Deviation 46.8 fL (36.4-46.3); Red Blood Count 3.95 M/uL (4.63-6.08); White Blood Count 8.04 K/ul (4.8-10.8)
[2022-05-21 10:14] LABS: Estimated Average Glucose 143 mg/dl; Hemoglobin A1C 6.6 % (4.5-5.6)
[2022-05-21 10:15] LABS: BUN Creatinine Ratio 29.3 (10-20); Calcium 8.4 mg/dl (8.5-10.1); Creatinine Clr Calc Pharmacy 61.2 ml/min; Est GFR (African American) 86.4 ml/min; Est GFR (Non-African American) 74.5 ml/min; Magnesium 1.8 mg/dl (1.7-2.4)
--- NOTE | 2022-05-21 16:08 | Hospitalist Progress Note ---
Date of Service May 21, 2022 Assessment & Plan (1) UTI (urinary tract infection): Plan: UTI, with sepsis, POA Ur cx with Staph species but with nitrites and improvement on ceftriaxone, most likely from GNR CTA/P: 1. No acute abnormality and in particular no evidence of hydronephrosis.2. 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 continue rocephin and follow Ur cx, BCxs-NGTD, but suspect will need to continue coverage for GNR ie cefdinir rather than Staph coverage only -leukocytosis resolved, BPs and tachycardia much improved Multivessel CAD s/p LAD and LCx stenting 2004, CABG times 01/27/2018 Follows by [facility] Continue DAPT, aspirin and Brilinta Atorvastatin as noted holding home Bumex Low-sodium diet Bilateral iliac artery aneurysms, PAD with complex iliac stenting 2015 and left femoropopliteal bypass 01/2019 with revision April 2019 DAPT, statin as noted Just had follow-up in the past week with ultrasound for left lower extremity, per patient doing well. 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 #[phone]. DNI/DNR (2) AAA (abdominal aortic aneurysm): (3) Chronic diastolic heart failure: (4) Complex sleep apnea syndrome: (5) Constipation: (6) Coronary artery disease: (7) Diabetic neuropathy: (8) Dyslipidemia: (9) Hypertension: (10) PAD (peripheral artery disease): (11) S/P CABG x 4: Admission and Anticipated Discharge Date Admission Date: May 20, 2022 Subjective Feeling much better. No complaints. No abd pain, no back pain. Is independent in the room. Tele with SB rates 50-60s Review of Systems Review of Systems: All systems reviewed & are unremarkable except as noted in HPI & below Physical Exam Constitutional: WD/WN, vitals as above Eyes: + anicteric sclerae Neck: trachea midline, no thyromegaly Respiratory: normal respiratory effort, lungs clear to auscultation Cardiovascular: RRR, no murmur, no edema Chest (Breasts): Chest: normal inspection of chest Gastrointestinal (Abdomen): normal bowel sounds, soft, nontender, no hepatosplenomegaly Musculoskeletal: Extremities: extremities normal to inspection; no cyanosis and no clubbing Skin: no rashes, warm and dry Neurologic: moves all extremities and awake; no focal motor deficits Psychiatric: A+Ox3, euthymic affect Lymphatic: no lymphedema Results & Data Results [facility] ([facility]) Vital Signs (Past 12 Hours) Vital Signs Temp Pulse Pulse Resp BP Pulse Ox O2 Del Method 05/21/22 15:29 37.2 C 52 L 16 122/67 97 Room Air 05/21/22 14:56 55 L 05/21/22 11:57 36.7 C 51 L 16 132/68 95 Room Air 05/21/22 08:12 36.6 C 62 16 169/81 H 94 Room Air 05/21/22 07:17 52 L Laboratory Results 05/21/22 05/21/22 05/21/22 Range/Units 11:28 09:18 09:18 WBC (4.8-10.8) K/ul RBC (4.63-6.08) M/uL Hgb (14.0-18.0) g/dl Hct (40.1-51.0) % MCV (80.0-100.0) fL MCH (25.0-34.0) pg MCHC (32.0-36.0) g/dL RDW Std Deviation (36.4-46.3) fL RDW Coeff of Lin (11.5-14.5) % Plt Count (130-400) K/uL MPV (9.4-12.4) fL Immature Gran % (Auto) % Neut % (Auto) % Lymph % (Auto) % [place] % (Auto) % Eos % (Auto) % Baso % (Auto) % Neut # (Auto) (1.4-6.5) K/uL Lymph # (Auto) (1.2-3.4) K/uL [place] # (Auto) (0.24-0.82) K/uL Eos # (Auto) (0-0.50) K/uL Baso # (Auto) (0-0.2) K/uL Immature Gran # (Auto) (0.00-0.02) K/uL Sodium 138 (136-145) mmol/L Potassium 4.0 (3.5-5.1) mmol/L Chloride 106 (98-107) mmol/L Carbon Dioxide 25 (21-32) mmol/L Anion Gap 7 (3-11) BUN 27 H (6-23) mg/dl Creatinine 0.92 (0.6-1.4) mg/dl Est Cr Clr Drug Dosing 61.2 ml/min Est GFR ( Amer) 86.4 ml/min Est GFR (Non-Af Amer) 74.5 ml/min BUN/Creatinine Ratio 29.3 H (10-20) Glucose 178 H (70-99(Fasting)) mg/dl POC Glucose 121 H (70-99) mg/dl Estimat Average Glucose 143 mg/dl Hemoglobin A1c 6.6 H (4.5-5.6) % Lactate (0.4-2.0) mmol/L Calcium 8.4 L (8.5-10.1) mg/dl Magnesium 1.8 (1.7-2.4) mg/dl Procalcitonin (0-0.5) ng/ml Urine Color Urine Appearance (Clear) Urine pH (4.5-7.5) Ur Specific [place] (1.000-1.030) Urine Protein (Negative) Urine Glucose (UA) (Negative) Urine Ketones (Negative) Urine Blood (Negative) Urine Nitrite (Negative) Urine Bilirubin (Negative) Urine Urobilinogen (Negative) Ur Leukocyte Esterase (Negative) Urine WBC (Auto) (0-5) /hpf Urine RBC (Auto) (0-4) /hpf U Hyaline Cast (Auto) (0-5) /lpf U Epithel Cells (Auto) (0-5) /lpf Urine Bacteria (Auto) (Negative) 05/21/22 05/21/22 05/20/22 Range/Units 09:18 07:31 21:01 WBC 8.04 (4.8-10.8) K/ul RBC 3.95 L (4.63-6.08) M/uL Hgb 12.7 L (14.0-18.0) g/dl Hct 37.5 L (40.1-51.0) % MCV 94.9 (80.0-100.0) fL MCH 32.2 (25.0-34.0) pg MCHC 33.9 (32.0-36.0) g/dL RDW Std Deviation 46.8 H (36.4-46.3) fL RDW Coeff of Lin 13.3 (11.5-14.5) % Plt Count 233 (130-400) K/uL MPV 9.7 (9.4-12.4) fL Immature Gran % (Auto) 0.2 % Neut % (Auto) 76.5 % Lymph % (Auto) 15.5 % [place] % (Auto) 5.5 % Eos % (Auto) 1.7 % Baso % (Auto) 0.6 % Neut # (Auto) 6.14 (1.4-6.5) K/uL Lymph # (Auto) 1.25 (1.2-3.4) K/uL [place] # (Auto) 0.44 (0.24-0.82) K/uL Eos # (Auto) 0.14 (0-0.50) K/uL Baso # (Auto) 0.05 (0-0.2) K/uL Immature Gran # (Auto) 0.02 (0.00-0.02) K/uL Sodium (136-145) mmol/L Potassium (3.5-5.1) mmol/L Chloride (98-107) mmol/L Carbon Dioxide (21-32) mmol/L Anion Gap (3-11) BUN (6-23) mg/dl Creatinine (0.6-1.4) mg/dl Est Cr Clr Drug Dosing ml/min Est GFR ( Amer) ml/min Est GFR (Non-Af Amer) ml/min BUN/Creatinine Ratio (10-20) Glucose (70-99(Fasting)) mg/dl POC Glucose 90 161 H (70-99) mg/dl Estimat Average Glucose mg/dl Hemoglobin A1c (4.5-5.6) % Lactate (0.4-2.0) mmol/L Calcium (8.5-10.1) mg/dl Magnesium (1.7-2.4) mg/dl Procalcitonin (0-0.5) ng/ml Urine Color Urine Appearance (Clear) Urine pH (4.5-7.5) Ur Specific [place] (1.000-1.030) Urine Protein (Negative) Urine Glucose (UA) (Negative) Urine Ketones (Negative) Urine Blood (Negative) Urine Nitrite (Negative) Urine Bilirubin (Negative) Urine Urobilinogen (Negative) Ur Leukocyte Esterase (Negative) Urine WBC (Auto) (0-5) /hpf Urine RBC (Auto) (0-4) /hpf U Hyaline Cast (Auto) (0-5) /lpf U Epithel Cells (Auto) (0-5) /lpf Urine Bacteria (Auto) (Negative) 05/20/22 05/20/22 05/20/22 Range/Units 16:30 16:04 15:03 WBC (4.8-10.8) K/ul RBC (4.63-6.08) M/uL Hgb (14.0-18.0) g/dl Hct (40.1-51.0) % MCV (80.0-100.0) fL MCH (25.0-34.0) pg MCHC (32.0-36.0) g/dL RDW Std Deviation (36.4-46.3) fL RDW Coeff of Lin (11.5-14.5) % Plt Count (130-400) K/uL MPV (9.4-12.4) fL Immature Gran % (Auto) % Neut % (Auto) % Lymph % (Auto) % [place] % (Auto) % Eos % (Auto) % Baso % (Auto) % Neut # (Auto) (1.4-6.5) K/uL Lymph # (Auto) (1.2-3.4) K/uL [place] # (Auto) (0.24-0.82) K/uL Eos # (Auto) (0-0.50) K/uL Baso # (Auto) (0-0.2) K/uL Immature Gran # (Auto) (0.00-0.02) K/uL Sodium (136-145) mmol/L Potassium (3.5-5.1) mmol/L Chloride (98-107) mmol/L Carbon Dioxide (21-32) mmol/L Anion Gap (3-11) BUN (6-23) mg/dl Creatinine (0.6-1.4) mg/dl Est Cr Clr Drug Dosing ml/min Est GFR ( Amer) ml/min Est GFR (Non-Af Amer) ml/min BUN/Creatinine Ratio (10-20) Glucose (70-99(Fasting)) mg/dl POC Glucose (70-99) mg/dl Estimat Average Glucose mg/dl Hemoglobin A1c (4.5-5.6) % Lactate 1.4 (0.4-2.0) mmol/L Calcium (8.5-10.1) mg/dl Magnesium (1.7-2.4) mg/dl Procalcitonin 0.07 (0-0.5) ng/ml Urine Color Dark Yellow Urine Appearance Turbid A (Clear) Urine pH 7.0 (4.5-7.5) Ur Specific [place] 1.019 (1.000-1.030) Urine Protein 2+ H (Negative) Urine Glucose (UA) Negative (Negative) Urine Ketones Negative (Negative) Urine Blood 1+ H (Negative) Urine Nitrite Positive A (Negative) Urine Bilirubin Negative (Negative) Urine Urobilinogen Negative (Negative) Ur Leukocyte Esterase 3+ H (Negative) Urine WBC (Auto) >30 H (0-5) /hpf Urine RBC (Auto) 10-30 H (0-4) /hpf U Hyaline Cast (Auto) 1-5 (0-5) /lpf U Epithel Cells (Auto) 5-10 H (0-5) /lpf Urine Bacteria (Auto) 2+ H (Negative) PG Care Time/CCT Total # of Minutes Spent Total Time Spent with Patient: Total time spent is greater than 50% in coordination of care (as documented) at patient's floor/unit and/or counseling patient: Coding Level of Care Code 36424 Subseq Hosp Care Lvl 2 Diagnoses UTI (urinary tract infection) N39.0 AAA (abdominal aortic aneurysm) I71.4 Chronic diastolic heart failure I50.32 Complex sleep apnea syndrome G47.31 Constipation K59.00 Coronary artery disease I25.10 Diabetic neuropathy E11.40 Dyslipidemia E78.5 Hypertension I10 PAD (peripheral artery disease) I73.9 S/P CABG x 4 Z95.1
[2022-05-21] MEDS: ATORVASTATIN 40 MG TAB PO SCH (20:34)
[2022-05-22 07:09] LABS: Basophils # (auto) 0.07 K/uL (0-0.2); Eosinophils # (auto) 0.31 K/uL (0-0.50); Eosinophils % (auto) 4.3 %; Hematocrit (blood only) 38.2 % (40.1-51.0); Hemoglobin 12.8 g/dl (14.0-18.0); Immature Granulocytes # (auto) 0.02 K/uL (0.00-0.02); Immature Granulocytes % (auto) 0.3 %; Lymphocytes # (auto) 1.52 K/uL (1.2-3.4); Lymphocytes % (auto) 21.1 %; Mean Corpuscular Hemoglobin 31.9 pg (25.0-34.0); Mean Corpuscular Hgb Conc 33.5 g/dL (32.0-36.0); Mean Corpuscular Volume 95.3 fL (80.0-100.0); Mean Platelet Volume 9.5 fL (9.4-12.4); Monocytes % (auto) 8.3 %; Platelet Count 234 K/uL (130-400); RDW Coefficient of Variation 13.4 % (11.5-14.5); RDW Standard Deviation 46.9 fL (36.4-46.3); Red Blood Count 4.01 M/uL (4.63-6.08); White Blood Count 7.22 K/ul (4.8-10.8)
[2022-05-22 07:29] LABS: Calcium 8.5 mg/dl (8.5-10.1); Creatinine Clr Calc Pharmacy 51.6 ml/min; Est GFR (African American) 70.4 ml/min; Est GFR (Non-African American) 60.7 ml/min; Potassium 4.3 mmol/L (3.5-5.1)
[2022-05-22] MEDS: HEPARIN SOD 5,000 UNIT/0.5 ML VIAL SQ SCH (08:40)
[2022-05-22] MEDS: TICAGRELOR 90 MG TAB PO SCH (08:42)
[2022-05-22] MEDS: ASPIRIN 81 MG ECTAB PO SCH (08:43)
[2022-05-22] MEDS: MIRABEGRON ER 25 MG TAB PO SCH (08:43)
[2022-05-22] MEDS: FERROUS SULFATE 325 MG TAB PO SCH (08:44)
[2022-05-22] MEDS: cefTRIAXone SODIUM 2,000 MG in DEXTROSE 5% 50 ML IV SCH (08:55)
[2022-05-22] MEDS: LANTUS PER UNIT CHARGE SQ SCH (09:02)
[2022-05-22] MEDS: INSULIN ASPART PER UNIT SC SCH ×2 (09:02→12:30)
--- NOTE | 2022-05-22 10:43 | Discharge Summary ---
Date of Service May 22, 2022 Admission HPI Per Admitting Provider Rod Salgado is an 87-year-old male with a past medical history of diabetes with neuropathy, MCI, BPH with LUTS, AAA, renal disease, complex sleep apnea, chronic anemia, HLD, diastolic heart failure, PAD, and hypertension who has had 1 fall weakness, fatigue, and urinary frequency with urgency. He was diagnosed with a UTI by his PCP and was placed on Macrobid, did not improve. Culture grew out MSSA, urine is nitrite positive. 2 weeks dysuria, frequency, fatigue. Was seen in last [place], +macrobid for 7 days but did not help at all and continued to feel weak/fatigued. Had a PCP followup appointment yesterday, but delayed it bc he couldn't ge there prior ot the lab closing so came to the PCP today instead. Was found to be with low BP and recommended to come to the ER after multiple BPs <100 systolic and pulse was >130. Referred for sepsis. No chest pain or chest pressure. No shortness of breath. Has felt heart racing intermittently, no sx at time of admission. No Fevers/chills. No ab pain. No nausea/vomiting/diarrhea/constipation. No back pain No lightheadedness/dizziness. Medical History: Reviewed Medications: Reviewed. Surgical History: Reviewed Allergies: Reviewed. NKDA. Social History: No tobacco product use, former pipe smoker 30 years ago. Formerly glass of wine wih dinner, done recently since feeling ill. Code Status: Surrogate DM in an emegency would his son Husam Myles. #. DNI/DNR Principal Diagnosis UTI, sepsis Discharge Exam Constitutional WD/WN, vitals as above Eyes + anicteric sclerae Neck trachea midline, no thyromegaly Respiratory normal respiratory effort, lungs clear to auscultation Cardiovascular RRR, no murmur, no edema Chest (Breasts) Chest: normal inspection of chest Gastrointestinal (Abdomen) normal bowel sounds, soft, nontender, no hepatosplenomegaly Musculoskeletal Extremities: extremities normal to inspection; no cyanosis and no clubbing Skin no rashes, warm and dry Neurologic moves all extremities and awake; no focal motor deficits Psychiatric A+Ox3, euthymic affect Lymphatic no lymphedema Discharge Data Allergies Allergy/AdvReac Type Severity Reaction Status Date / Time bee venom protein (honey bee) Allergy Severe ANAPHYLAXIS Verified 05/20/22 17:06 Consultations 05/20/22 16:30 ED Decision to Admit Stat Ordered Studies 05/20/22 15:50 CT abd pelvis wo con Stat Hospital Course (1) UTI (urinary tract infection): UTI, with sepsis, POA Ur cx with Staph species but with nitrites and improvement on ceftriaxone, most likely from GNR CTA/P: 1. No acute abnormality and in particular no evidence of hydronephrosis.2. 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 Can continue outpatient follow-up Hyperlipidemia Atorvastatin 40 mg daily With DM2 On metformin S[employer], held and restart on discharge DVT: Heparin Diet: HH, DM Dispo-dc to home, doing very well. Discussed care with his son, Husam, on the phone (2) AAA (abdominal aortic aneurysm): (3) Chronic diastolic heart failure: (4) Complex sleep apnea syndrome: (5) Constipation: (6) Coronary artery disease: (7) Diabetic neuropathy: (8) Dyslipidemia: (9) Hypertension: (10) PAD (peripheral artery disease): (11) S/P CABG x 4: Total Time Total Time Spent Total Time Spent (In Minutes): 35 min Discharge Plan Discharge Items Patient Disposition: Home - Self-Care Reason For Visit: COMPLICATED UTI, STACH/HYPOTENSION Discharge Diagnosis: UTI, sepsis Condition on Discharge: Good Activity: As commented below Lifting: Gradually increase as tolerated Bathing: No limitations Exercise/Sports: Gradually increase as tolerated Non-emergency contact: Primary Care Provider Call non-emergency contact if: you have any medication questions, your symptoms worsen and you have a fever Follow-up/Referrals: Myrna Herr, [Primary Care Provider] - (Follow up within 1-2 weeks.) Diet: Carb Consistent or DM2 and Heart Healthy Addtl Attending Provider Instructions: Please finish out 8 more days of antibiotics to include cefdinir and doxycycline for your UTI. Your urine culture was growing Staphylococcus species, but it is suspected that you are also having a different bacteria causing your infection that is being treated by a different antibiotic than that for Staph. It was a pleasure taking care of you! -Stefani Brice M.D. Pending Studies at Discharge: Yes Studies:: Final urine and blood culture results Stand-Alone Forms: [facility] Medications and DC Order Prescriptions: New doxycycline hyclate 100 mg tablet 100 mg PO BID Qty: 16 0RF cefdinir 300 mg capsule 300 mg PO BID Qty: 16 0RF Continued glimepiride 1 mg tablet 0.5 mg PO QAM Qty: 90 1RF (DME) OneTouch Ultra Test Strip See Rx Instructions .Route Qty: 100 3RF Rx Instructions: Testing blood sugar once daily (DME) lancets [Ultra Thin Lancets] 30 gauge misc See Rx Instructions .Route Qty: 200 0RF Rx Instructions: Testing blood sugar once daily (DME) lancing device [Adjustable Lancing Device] Misc See Rx Instructions .Route Qty: 1 0RF Rx Instructions: Testing blood sugar once daily metformin 850 mg tablet 850 mg PO BID Qty: 180 3RF Brilinta 90 mg tablet 90 mg PO BID Qty: 180 3RF atorvastatin 40 mg tablet 40 mg PO DAILY Qty: 90 1RF bumetanide 1 mg tablet 1 mg PO DAILY Qty: 90 3RF ferrous sulfate 325 mg (65 mg iron) tablet 325 mg PO DAILY Qty: 90 1RF multivitamin [Daily Multi-Vitamin] tablet 1 tab PO DAILY Qty: 90 0RF Florastor 250 mg capsule 250 mg PO DAILY Qty: 90 1RF vitamin B complex [B Complex-Vitamin B12] tablet 1 tab PO DAILY Qty: 90 1RF sennosides-docusate sodium [Senna with Docusate Sodium] 8.6-50 mg tablet 1 tab PO QPM bisacodyl [Dulcolax (bisacodyl)] 10 mg suppository 10 mg NV DAILY PRN (Reason: Constipation) cranberry fruit 450 mg tablet 450 mg PO DAILY Rx Instructions: administer with a meal aspirin 81 mg tablet,delayed release (DR/EC) 81 mg PO DAILY (DME) blood-glucose meter Kit See Rx Instructions .ROUTE .MEDSUPPLY Qty: 1 0RF Rx Instructions: Check blood sugars twice daily as directed Lumigan 0.01 % drops 1 drp ophthalmic (eye) DAILY nitroglycerin [Nitrostat] 0.4 mg tablet, sublingual 0.4 mg SL Q5M PRN (Reason: chest pain) Qty: 30 5RF Myrbetriq 50 mg tablet extended release 24 hr 50 mg PO DAILY epinephrine [EpiPen 2-Shola] 0.3 mg/0.3 mL auto-injector 0.3 mg IM Q10M PRN (Reason: anaphylaxis) Qty: 2 3RF Rx Instructions: for 2 doses (DME) GRABBER TOOL See Rx Instructions .Route .MEDSUPPLY Qty: 1 0RF Rx Instructions: As directed polyethylene glycol 3350 [Miralax] 17 gram powder in packet 17 gm PO DAILY Qty: 1 0RF Discharge Orders: Discharge Order (Routine); Ordered 05/22/22 Ordered By: Stefani Arteaga/Other Patient Handouts: Managing Type 2 Diabetes Admission Data Admit Date/Time: 05/20/22 17:06 Attending Provider: Stefani Brice Admit Provider: Gary Ryan Primary Care Provider: Myrna Herr Other Providers: Gary Ryan Coding Level of Care Code D/C DAY MANAGEMENT >30 MINS Diagnoses UTI (urinary tract infection) N39.0 AAA (abdominal aortic aneurysm) I71.4 Chronic diastolic heart failure I50.32 Complex sleep apnea syndrome G47.31 Constipation K59.00 Coronary artery disease I25.10 Diabetic neuropathy E11.40 Dyslipidemia E78.5 Hypertension I10 PAD (peripheral artery disease) I73.9 S/P CABG x 4 Z95.1
== END 2022-05-22 14:50 | disposition home or self-care (01) ==
LOC: EDINP 13:57 → ED 13:57 → SUATTDRO 17:06 → EDINP 20:00 → 2W 05-21 01:23
DX: Z79.84 Long term (current) use of oral hypoglycemic drugs; E78.5 Hyperlipidemia, unspecified; N39.0 Urinary tract infection, site not specified; Z91.030 Bee allergy status; Z79.899 Other long term (current) drug therapy; E11.40 Type 2 diabetes mellitus with diabetic neuropathy, unspecified; G47.31 Primary central sleep apnea; A41.9 Sepsis, unspecified organism; N40.1 Benign prostatic hyperplasia with lower urinary tract symptoms; Z79.82 Long term (current) use of aspirin; N28.9 Disorder of kidney and ureter, unspecified; I11.0 Hypertensive heart disease with heart failure; I50.32 Chronic diastolic (congestive) heart failure; I71.4 Abdominal aortic aneurysm, without rupture; I25.10 Atherosclerotic heart disease of native coronary artery without angina pectoris; Z91.81 History of falling; Z95.1 Presence of aortocoronary bypass graft; I73.9 Peripheral vascular disease, unspecified; Z87.891 Personal history of nicotine dependence